=== PATIENT | male | born 1955 | race Caucasian/White ===

== ENCOUNTER 2023-10-07 15:07 | Outpatient (OUT) | payer OTHER, SELFPAY ==
--- NOTE | 2023-10-07 16:00 | CA_ITS ---
Patient Name: KATH CÁRDENAS MR#: [id number] : 1955 Exam Date: 10/07/2023 Ordering Doctor: CASTRO BOCANEGRA ECHOCARDIOGRAM REPORT PROCEDURE: CA ECHO DOPPLER COMPLETE INDICATIONS: Thoracic aortic ectasia, Aneurysm of ascending aorta COMPARISON: None. DESCRIPTION: COMPLETE ECHOCARDIOGRAM Real-time transthoracic echocardiography with 2D, M-mode, spectral and color flow Doppler performed. QUALITY: Technical quality was good. LEFT VENTRICLE: Normal chamber size. Mild concentric left ventricular hypertrophy. LV EF: Global left ventricular systolic function is normal. Calculated left ventricular ejection fraction is 63% DIASTOLIC: Normal diastolic function. ATRIAL SEPTUM: Inadequately seen. LEFT ATRIUM: Normal chamber size. RIGHT ATRIUM: Normal chamber size. RIGHT VENTRICLE: Normal chamber size. Normal right ventricular systolic function. TRICUSPID VALVE: Normal mobility and thickness. No stenosis with trivial regurgitation. No evidence of pulmonary hypertension. RVSP 33mmHg MITRAL VALVE: Normal mobility and thickness. No evidence of mitral valve stenosis. There is no mitral annular calcification. Mild mitral regurgitation. AORTIC VALVE: Normal trileaflet appearance. No visible sclerosis. Normal leaflet mobility. No evidence of aortic valve stenosis. Trivial aortic regurgitation. AORTIC ROOT: Normal diameter and appearance. The ascending aorta measures 3.6cm. The aortic arch is normal in size measuring 3.2cm. PULMONIC VALVE: Normal thickness and mobility. No stenosis. Trivial regurgitation. PERICARDIUM: No evidence of pericardial effusion. IVC: Collapses with inspirations. Normal size. CONCLUSION: 1. Global left ventricular systolic function is normal; visually estimated ejection fraction is 60 to 65% 2. Normal right ventricular size and systolic function 3. Left atrium is normal in size 4. Normal diastolic function 5. Mild mitral regurgitation 6. Ascending aorta is upper normal limits in size Adult Echocardiography Procedure Report Left Ventricle LVEDD (3.7 - 5.6 cm): 4.20 cm LVESD (2.2 - 4.0 cm): 2.92 cm LVIVS thickness (0.6 - 1.2 cm): 1.36 cm LVPW thickness (0.5 - 1.0 cm): 1.23 cm e': 0.12 m/s E - e': 5.35 LVOT Max Gradient: 3.39 mm[Hg] LVOT Area (cm2): 0.92 m/s Peak Velocity (LVOT): 0.92 m/s Mean Velocity (LVOT): 0.65 m/s LVOT Diameter 2.51 cm Left Ventricular Ejection Fraction: 63.13 % Left Atrium LA Volume Index (2D A2C): 32.97 ml/m2 Left Atrium Systolic Dimension: 3.64 cm Mitral Valve MV E to A Ratio: 0.97, 0.98 Mitral Valve A-Wave Peak Velocity: 0.68 m/s Mitral Valve E-Wave Peak Velocity: 0.66 m/s Right Ventricle RV Internal Diastolic Dimension: 3.62 cm Aorta AO Root Diam: 3.60 cm Ascending Ao Diam: 3.63 cm Aortic Valve AoV Area (Peak Bucky): 3.81 cm2, 3.81 cm2 AoV Area (VTI): 3.39 cm2, 3.39 cm2 Peak Velocity(Antegrade Flow): 1.19 m/s Peak Gradient(Antegrade Flow): 5.69 mm[Hg] Mean Velocity(Antegrade Flow): 0.86 m/s Mean Gradient(Antegrade Flow): 3.31 mm[Hg] Velocity Time Integral: 25.92 cm Tricuspid Valve Peak Velocity (Regurgitant Flow): 2.73 m/s, 2.33 m/s, 2.35 m/s Pulmonic Valve Mean Gradient: 2.47 mm[Hg] Mean Velocity: 0.73 m/s Peak Velocity: 1.12 m/s, 0.98 m/s Peak Gradient: 3.85 mm[Hg], 5.06 mm[Hg] Right Atrium Right Atrium Systolic Pressure: 54.69 ml, 54.69 ml Dictated by: Ella Villeda M.D. on 10/07/2023 at 16:26 Approved by: Ella Villeda M.D. on 10/07/2023 at 16:31
== END 2023-10-07 15:08 | disposition home or self-care (01) ==
LOC: CARD 15:08
PROVIDERS: Visit Provider Nurse Practitioner
DX: I77.810 Thoracic aortic ectasia (principal); I71.21 Aneurysm of the ascending aorta, without rupture
CPT/HCPCS: 93306

== ENCOUNTER 2024-06-04 09:06 | Outpatient (OUT) | payer OTHER, SELFPAY ==
--- OUTSIDE RECORDS SUMMARY | 2024-06-04 09:30 | XMS_ITS | CCD ---
Author Organization [facility] CliniSynh Care Team Providers Care Compensation Associate Name Role Phone GERONIMO ROBERT~[phone] UNKNOWN Unavailable Unavailable Rice, Jodee W Unavailable Unavailable Rice, Jodee W Unavailable Unavailable Rice, Jodee W Unavailable Unavailable UNKNOWN, PROVIDER Admitting Unavailable UNKNOWN, PROVIDER Attending Unavailable GERONIMO ROBERT Referring Unavailable YESICA, GERONIMO Primary Care Unavailable SAM, KARTHIK Admitting Unavailable SAMSA, KARTHIK Attending Unavailable YESICA, DR GERONIMO Lunsford Primary Care Unavailable SAMSA, KARTHIK Consulting Unavailable ESTER, DR WOLF Admitting Unavailable BALL, DR WOLF Attending Unavailable ROBERT, DR GERONIMO Lunsford Primary Care Unavailable BALL, DR WOLF Consulting Unavailable YESICA, DR GERONIMO Lunsford Admitting Unavailable ROBERT, DR GERONIMO Lunsford Attending Unavailable ROBERT, DR GERONIMO Lunsford Primary Care Unavailable ROBERT, DR GERONIMO Lunsford Consulting Unavailable Geronimo Robert MD Primary Care Provider GERONIMO ROBERT Primary Care Unavailable STEPHANIE WEST Consulting Unavailable ELOISE PETERS Attending Unavailable ELOISE PETERS Admitting Unavailable Esthela Mahajan MD Unavailable Esthela Mahajan MD Primary Care Provider Miguelina Villa Primary Care Pro vider MIGUELINA RICHARD Attending Unavailab MIGUELINA Joseph Attending Unavailab MIGUELINA Joseph Attending Unavailab MIGUELINA Joseph Attending Unavailab CURTIS Vizcaino Referring Unavailable CURTIS MARTINEZ Referring Unavailable CASTRO STONE Attending Unavailable RAYNA RUTLEDGE Attending Unavailable CURTIS MARTINEZ Referring Unavailable MADISYN GENAO Referring Unavailable MIGUELINA RICHARD Primary Care Unavailab MADISYN Rivas Attending Unavailable GERONIMO ROBERT Referring Unavailable RICHARD, MIGUELINA A Primary Care Unavailab le RICHARD, MIGUELINA A Primary Care Unavailab le BRETT WILSON Attending Unavailable BRETT WILSON Attending Unavailable BRETT WILSON Referring Unavailable RICHARD, MIGUELINA A Primary Care Unavailab le JESUS, MENNATALLAH M Admitting Unavailable JESUS, MENNATALLAH M Attending Unavailable JACE, MIGUELINA A Primary Care Unavailab YAMINI Gandhi Attending Unavail able RICHARD, MIGUELINA A Primary Care Unavailab le JESUS, MENNATALLAH M Attending Unavailable JESUS, MENNATALLAH M Referring Unavailable RICHARD, MIGUELINA A Primary Care Unavailab le JESUS, MENNATALLAH M Attending Unavailable JESUS, MENNATALLAH M Referring Unavailable RICHARD, MIGUELINA A Primary Care Unavailab le JESUS, MENNATALLAH M Attending Unavailable JESUS, MENNATALLAH M Referring Unavailable RICHARD, MIGUELINA A Primary Care Unavailab MADISYN Rivas Referring Unavailable RICHARD, MIGUELINA A Primary Care Unavailab MADISYN Rivas Attending Unavailable GERONIMO ROBERT Referring Unavailable RICHARD, MIGUELINA A Primary Care Unavailab le Allergies Allergy Classification Reported Allergen(s) Allergy Type Date of Onset Reaction(s) Facility (1 source) No Known Medication Allergies; Translations: [No Known Medication Allergies] Propensity to adverse reactions (disorder) [facility] Repository (4 sources) Acyclovir; Translations: [ACYCLOVIR] Drug Allergy 4 [facility] Repository (3 sources) Acyclovir Drug Allergy 9 [facility] Medications Current Medications Medication Drug Class(es) Dates Sig (Normalized) Sig (Original) acetaminophen 500 mg oral tablet (1 source) Start: 06-15-2022 acetaminophen (TYLENOL) tablet 1,000 mg amoxicillin 875 mg / clavulanate 125 mg oral tablet (2 sources) Penicillin-class Antibacterial Start: 06-15-2022 End: 06-25-2022 take 1 tablet by mouth every twelve hours amoxicillin-clavul anate (AUGMENTIN) 875-125 MG per tablet Take 1 tablet by mouth every 12 hours for 10 days 20 tablet 0 06/15/2022 06/25/2022 Active Start: 06-15-2022 amoxicillin-cl avulanate (AUGMENTIN) 875-125 MG per tablet 1 tablet apalutamide 60 mg oral tablet (4 sources) Start: 07-04-2023 take 4 tablets by mouth once daily apalutamide 60 mg chemo tablet Indications: Primary malignant neoplasm of prostate (CMS-HCC) Take 4 tablets by mouth daily 120 tablet 11 07/04/2023 Active Apalutamide (Erl eada) 60 MG tablet Take by mouth. 0 Active aspirin 81 mg delayed release oral tablet (1 source) Platelet Aggregation Inhibitor, Nonsteroidal Anti-inflammatory Drug take 1 tablet by mouth in the morning aspirin 81 MG EC tablet Take 81 mg by mouth in the morning. 0 Active bicalutamide 50 mg oral tablet (3 sources) Androgen Receptor Inhibitor Start: End: take 1 tablet by mouth once daily bicalutamide (CASODEX) 50 mg chemo tablet Take 1 tablet by mouth daily 90 tablet 3 10/17/2023 10/11/2024 Active bisacodyl 10 mg rectal suppository (1 source) Stimulant Laxative Start: bisacodyl (DULCOLAX) suppository 10 mg Blood Glucose Monitoring Suppl (FreeStyle glucose monitoring) kit (1 source) Blood Glucose Monitoring Suppl (FreeStyle glucose monitoring) kit 1 each in the morning and 1 each before bedtime. 0 Active Continuous Blood Gluc Top Closer (FreeStyle Rae 2 [place]) device (1 source) Continuous Blood Gluc Top Closer (FreeStyle Rae 2 [place]) device 2 (two) times a day 0 Active Continuous Blood Gluc Sensor (FreeStyle Rae 2 Sensor) misc (1 source) Continuous Blood Gluc Sensor (FreeStyle Rae 2 Sensor) misc 2 (two) times a day 0 Active dexamethasone 1 mg/ml / neomycin 3.5 mg/ml / polymyxin b 50331 unt/ml ophthalmic suspension (1 source) Aminoglycoside Antibacterial, Polymyxin-class Antibacterial, Corticosteroid Start: End: take 2 drop(s) into the eye(s) twice daily neomycin-polymyxin- dexamethasone (MAXITROL) 0.1 % ophthalmic suspension Place 2 drops into the left eye 2 times daily for 10 days 2 mL 0 06/15/2022 06/25/2022 Active famotidine 20 mg oral tablet (1 source) Histamine-2 Receptor Antagonist famotidine (Pepcid) 20 MG tablet Take 20 mg by mouth. 0 Active fluticasone propionate 0.05 mg/actuat metered dose nasal spray (1 source) Corticosteroid Start: End: take 1-2 spray(s) nasal route in the morning fluticasone (Flonase) 50 MCG/ACT nasal spray Indications: Seasonal allergic rhinitis due to other allergic trigger Administer 1-2 sprays into each nostril in the morning. Shake gently. Before first use, prime pump. After use, clean tip and replace cap.. 16 g 2 02/11/2023 02/11/2024 Active 250 ml glucose 50 mg/ml / sodium chloride 4.5 mg/ml injection (2 sources) Start: dextrose 5 % and 0.45 % sodium chloride infusion Start: 06-15-2022 End: 06-15-2022 dextrose 5 % and 0.45 % NaCl 5-0.45 % infusion 24 hr metFORMIN hydrochloride 500 mg extended release oral tablet (4 sources) Biguanide Start: 05-03-2023 take 2 tablets by mouth every twenty-four hours in the morning metFORMIN XR (Glucophage-XR) 500 MG 24 hr tablet Indications: Type 2 diabetes mellitus without complication, without long-term current use of insulin ([facility]) Take 2 tablets (1,000 mg) by mouth in the morning. Do not crush, chew, or split.. 180 tablet 0 05/03/2023 Active take 1 tablet by mouth in the mo rning metFORMIN (GLUCOPHAGE) 500 mg tablet Take 1 tablet by mouth in the morning and 1 tablet before bedtime. 0 Active Multiple Vitamin (multivitamin) tablet (1 source) take 1 tablet by mouth in the morning Multiple Vitamin (multivitamin) tablet Take 1 tablet by mouth in the morning. 0 Active ondansetron (ZOFRAN-ODT) disintegrating tablet 4 mg (1 source) Start: ondansetron (ZOFRAN-ODT) disintegrating tablet 4 mg oxyCODONE hydrochloride 5 mg oral tablet (3 sources) Opioid Agonist Start: 2 End: 2 take 0.5 tablet by mouth every six hours as needed for pain oxyCODONE (ROXICODONE) 5 MG immediate release tablet Indications: Dog bite of eye region, left, initial encounter Take 0.5 tablets by mouth every 6 hours as needed for Pain for up to 5 days. 6 tablet 0 06/15/2022 06/20/2022 Active Start: 06-15-2022 oxyCODONE (ESA ICODONE) immediate release tablet 2.5 mg polyethylene glycol 3350 81843 mg powder for oral solution (1 source) Osmotic Laxative Start: 06-15-2022 polyethylene glycol (GLYCOLAX) packet 17 g 5 ml sodium chloride 9 mg/ml injection (3 sources) Start: 06-15-2022 0.9 % sodium c hloride infusion Start: 06-15-2022 sodium chlorid e flush 0.9 % injection 5-40 mL vitamin b12 0.1 mg oral tablet (1 source) Vitamin B12 take 1 tablet by mouth in the morning cyanocobalamin (Vitamin B-12) 100 MCG tablet Take 100 mcg by mouth in the morning. 0 Active zinc gluconate 77 mg oral lozenge (1 source) Zinc 10 MG lozen ge Dissolve in the mouth. 0 Active Completed/Discontinued Medications Medication Drug Class(es) Dates Sig (Normalized) Sig (Original) atorvastatin 10 mg oral tablet (1 source) HMG-CoA Reductase Inhibitor Start: 07-02-2023 End: 09-10-2023 take 1 tablet by mouth in the morning atorvastatin (Lipitor) 10 MG tablet Indications: Mixed hyperlipidemia (CMS/HCC) TAKE 1 TABLET BY MOUTH IN THE MORNING 90 tablet 0 07/02/2023 09/10/2023 Discontinued (Ineffective) proparacaine hydrochloride 5 mg/ml ophthalmic solution (1 source) Local Anesthetic Start: 06-15-2022 End: 06-15-2022 proparacaine (ALCAINE) 0.5 % ophthalmic solution 1 drop Problems Active Problems Problem Classification Problem Date Documented Da te Episodic/Chronic Abdominal pain (1 source) Epigastric pain; Translations: [Epigastric pain] Onset: 02-04-2024 Episodic Acquired foot deformities (2 sources) Acquired left hallux valgus; Translations: [Hallux valgus (acquired), left foot] Onset: 02-11-2023 09-12-2023 Chronic Administrative/social admission (2 sources) Patient encounter status; Translations: [Other specified counseling] 09-12-2023 Episodic Aortic; peripheral; and visceral artery aneurysms (2 sources) Thoracic aortic ectasia; Translations: [Thoracic aortic ectasia] Onset: 09-25-2023 Chronic Biliary tract disease (1 source) Disease of gallbladder, unspecified; Translations: [Disease of gallbladder, unspecified] Onset: 02-04-2024 Episodic Cancer of prostate (12 sources) Malignant tumor of prostate; Translations: [Malignant neoplasm of prostate] Onset: 07-06-2014 09-12-2023 Chronic Cardiac dysrhythmias (8 sources) Paroxysmal atrial fibrillation; Translations: [Sick sinus syndrome] Onset: 09-27-2021 09-12-2023 Chronic Cardiac dysrhythmias (2 sources) Palpitations; Translations: [Palpitations] Onset: 07-06-2014 09-12-2023 Episodic Conduction disorders (5 sources) Conduction disorder of the heart; Translations: [Conduction disorder, unspecified] Onset: 06-30-2014 Resolved: 09-12-2023 09-12-2023 Chronic Diabetes mellitus with complications (1 source) Type 2 diabetes mellitus; Translations: [Type 2 diabetes mellitus with diabetic polyneuropathy] 09-12-2023 Chronic Diabetes mellitus without complication (2 sources) Type 2 diabetes mellitus without complication; Translations: [Type 2 diabetes mellitus without complications] Onset: 02-11-2023 09-03-2023 Chronic Disorders of lipid metabolism (4 sources) Mixed hyperlipidemia; Translations: [Mixed hyperlipidemia] Onset: 02-11-2023 09-03-2023 Chronic E Codes: Natural/environment (2 sources) Dog bite - wound; Translations: [Bitten by dog, initial encounter] Onset: 06-15-2022 Episodic Gastroduodenal ulcer (except hemorrhage) (1 source) Peptic ulcer, site unspecified, unspecified as acute or chronic, without hemorrhage or perforation; Translations: [Peptic ulcer, site unspecified, unspecified as acute or chronic, without hemorrhage or perforation] Onset: 02-04-2024 Chronic Heart valve disorders (5 sources) Aortic valve disorder; Translations: [Nonrheumatic aortic valve disorder, unspecified] Onset: 07-14-2014 Resolved: 09-12-2023 09-12-2023 Chronic Immunity disorders (1 source) Secondary immune deficiency disorder; Translations: [Immunodeficiency due to conditions classified elsewhere ([facility])] 09-12-2023 Chronic Nonspecific chest pain (2 sources) Chest pain Onset: 02-04-2024 Episodic Open wounds of head; neck; and trunk (4 sources) Dog bite of eye region; Translations: [Open bite of left eyelid and periocular area, initial encounter] Onset: 06-15-2022 Episodic Osteoarthritis (2 sources) Arthritis; Translations: [Unspecified osteoarthritis, unspecified site] Onset: 02-11-2023 09-12-2023 Chronic Other injuries and conditions due to external causes (2 sources) Bite - wound; Translations: [Other injury of unspecified body region, initial encounter] Onset: 06-15-2022 Episodic Other nervous system disorders (2 sources) Neuropathy; Translations: [Polyneuropathy, unspecified] Onset: 02-11-2023 09-12-2023 Chronic Residual codes; unclassified (4 sources) Obstructive sleep apnea (adult) (pediatric); Translations: [OBSTRUCTIVE SLEEP APNEA] Onset: 05-23-2022 Chronic Residual codes; unclassified (1 source) Idiopathic hypersomnia with long sleep time; Translations: [IDIO HYPERSOMNIA W/LONG SLEEP TIME] Onset: 05-27-2022 Chronic Residual codes; unclassified (1 source) Colon cancer screening declined; Translations: [Procedure and treatment not carried out because of patient's decision for unspecified reasons] 09-12-2023 Episodic Spondylosis; intervertebral disc disorders; other back problems (2 sources) Cervical spondylosis without myelopathy; Translations: [Spondylosis without myelopathy or radiculopathy, cervical region] Onset: 03-30-2014 09-12-2023 Chronic Unclassified (1 source) Aneurysm of the ascending aorta, without rupture; Translations: [Aneurysm of the ascending aorta, without rupture] Onset: 09-25-2023 Viral infection (4 sources) COVID-19; Translations: [COVID-19] Onset: 08-07-2021 Past or Other Problems Problem Classification Problem Date Documented Date Episodic/Chronic Conditions associated with dizziness or vertigo (1 source) Dizziness; Translations: [Dizziness and giddiness] Onset: 03-30-2014 Resolved: 09-12-2023 09-12-2023 Episodic Genitourinary symptoms and ill-defined conditions (8 sources) Magdiel hematuria; Translations: [Gross hematuria] Onset: 06-03-2019 Resolved: 09-12-2023 09-12-2023 Episodic Immunizations and screening for infectious disease (1 source) Encounter for immunization; Translations: [ENCOUNTER FOR IMMUNIZATION] Onset: 08-10-2021 Episodic Mood disorders (4 sources) Mood disorders Onset: 10-12-2021 Resolved: 09-03-2023 09-03-2023 Other nervous system disorders (1 source) Impairment of balance; Translations: [Other abnormalities of gait and mobility] Onset: 02-11-2023 Resolved: 09-12-2023 09-12-2023 Episodic Other nervous system disorders (1 source) Skin sensation disturbance; Translations: [Unspecified disturbances of skin sensation] Onset: 06-30-2014 Resolved: 09-12-2023 09-12-2023 Episodic Other nutritional; endocrine; and metabolic disorders (1 source) Abnormal weight loss; Translations: [ABNORMAL WEIGHT LOSS] Onset: 09-27-2021 Episodic Other nutritional; endocrine; and metabolic disorders (1 source) Polydipsia; Translations: [POLYDIPSIA] Onset: 09-27-2021 Episodic Unclassified (1 source) Aneurysm of the ascending aorta, without rupture; Translations: [Aneurysm of the ascending aorta, without rupture] Onset: 09-25-2023 Results Test Name Value Interpretation Reference Range Facility CBC AND AUTO DIFFon 04-15-20 24 ABSOLUTE BASOPHIL 0.1 X10E9/L Normal 0.0-0.2 [facility] Comment on above: Performed By: #### C SIXTO AGUERO, 2857-1 #### [facility] ([id number]) [address], [address] [place] [address] ABSOLUTE NEUTROPHIL 3.3 X10E9/L Normal 1.5-6.6 [facility] Comment on above: Performed By: #### C SIXTO AGUERO, 2857-1 #### [facility] ([id number]) [address], [address] [place] [address] Basophils/100 WBC (Bld) 1.0 % Normal [facility] Comment on above: Performed By: #### C MORE CMP, 7-1 #### [facility] ([id number]) [address] [address] [place] [address] Eosinophils (Bld) [#/Vol] 0.1 10*3/uL Normal 0.0-0.4 [facility] Comment on above: Performed By: #### Omar AGUERO CMP, 7-1 #### [facility] ([id number]) [address] [address] [place] [address] Eosinophils/100 WBC (Bld) 1.1 % Normal [facility] Comment on above: Performed By: #### Omar AGUERO CMP, 2856-1 #### [facility] ([id number]) [address] [address] [place] [address] Erythrocyte distribution width (RBC) [Ratio] 13.8 % Normal 11.5-15.0 [facility] Comment on above: Performed By: #### Omar AGUERO CMP, 2856-1 #### [facility] ([id number]) [address] [address] [place] [address] Hematocrit (Bld) [Volume fraction] 41.7 % Normal 39-49 [facility] Comment on above: Performed By: #### Omar AGUERO CMP, 2856-1 #### [facility] ([id number]) [address] [address] [place] [address] Hemoglobin (Bld) [Mass/Vol] 14.1 g/dL Normal 13.0-17.0 [facility] Comment on above: Performed By: #### Omar AGUERO CMP, 7-1 #### [facility] ([id number]) [address] [address] [place] [address] Lymphocytes (Bld) [#/Vol] 1.6 10*3/uL Normal 1.0-3.5 [facility] Comment on above: Performed By: #### C BCA, CMP, 2856-1 #### [facility] ([id number]) [address], [address] [place] [address] Lymphocytes/100 WBC (Bld) 27.8 % Normal [facility] Comment on above: Performed By: #### C BCA, CMP, 2856-1 #### [facility] ([id number]) [address], [facility] [address] [place] [address] MCH (RBC) [Entitic mass] 29.9 pg Normal 27-34 [facility] Comment on above: Performed By: #### Omar AGUERO, CMP, 2856-1 #### [facility] ([id number]) [address], [address] [place] [address] MCHC (RBC) [Mass/Vol] 33.9 g/dL Normal 32-36 [facility] Comment on above: Performed By: #### Omar BCA, CMP, 2856-1 #### [facility] ([id number]) [address], [address] [place] [address] MCV (RBC) [Entitic vol] 88 fL Normal 80-100 [facility] Comment on above: Performed By: #### Omar BCA, CMP, 2856-1 #### [facility] ([id number]) [address], [address] [place] [address] Monocytes (Bld) [#/Vol] 0.7 10*3/uL Normal 0-0.9 [facility] Comment on above: Performed By: #### C BCA, CMP, 2856-1 #### [facility] ([id number]) [address], [address] [place] [address] Monocytes/100 WBC (Bld) 12.2 % Normal [facility] Comment on above: Performed By: #### Omar BCA, CMP, 2856-1 #### [facility] ([id number]) [address] [address] [place] [address] Neutrophils/100 WBC (Bld) 57.9 % Normal [facility] Comment on above: Performed By: #### C BCA, CMP, 2857-1 #### [facility] ([id number]) [address] [address] [place] [address] Platelet mean volume (Bld) [Entitic vol] 8.4 fL Normal 7-12 [facility] Comment on above: Performed By: #### C BCA, CMP, 2857-1 #### [facility] ([id number]) [address] [address] [place] [address] Platelets (Bld) [#/Vol] 259 10*3/uL Normal 150-450 [facility] Comment on above: Performed By: #### C BCA, CMP, 2857-1 #### [facility] ([id number]) [address], [facility] [address] [place] [address] RBC COUNT 4.72 X10E12/L Normal 4.10-5.70 [facility] Comment on above: Performed By: #### C BCA, CMP, 2857-1 #### [facility] ([id number]) [address] [address] [place] [address] WBC (Bld) [#/Vol] 5.7 10*3/uL Normal 4.0-11.0 [facility] Comment on above: Performed By: #### C BCA, CMP, 2857-1 #### [facility] ([id number]) [address] [address] [place] [address] COMPREHENSIVE METABOLIC PANE Luis 04-15-2024 Albumin [Mass/Vol] 4.7 g/dL Normal 3.2-5.3 [facility] Comment on above: Performed By: #### C BCA, CMP, 2857-1 #### [facility] ([id number]) [address], [address] [place] [address] ALP [Catalytic activity/Vol] 52 U/L Normal 39-130 [facility] Comment on above: Performed By: #### C BCA, CMP, 2857-1 #### [facility] ([id number]) [address], [address] [place] [address] ALT [Catalytic activity/Vol] 16 U/L Normal 0-40 [facility] Comment on above: Performed By: #### C BCA, CMP, 2857-1 #### [facility] ([id number]) [address], [address] [place] [address] Anion gap [Moles/Vol] 9 mmol/L Normal 5-15 [facility] Comment on above: Performed By: #### Omar BCA, CMP, 2857-1 #### [facility] ([id number]) [address], [address] [place] [address] AST [Catalytic activity/Vol] 19 U/L Normal 0-41 [facility] Comment on above: Performed By: #### Omar BCA, CMP, 2857-1 #### [facility] ([id number]) [address], [address] [place] [address] Bilirubin [Mass/Vol] 0.4 mg/dL Normal 0.3-1.2 [facility] Comment on above: Performed By: #### C BCA, CMP, 2857-1 #### [facility] ([id number]) [address], [address] [place] [address] Calcium [Mass/Vol] 9.5 mg/dL Normal 8.5-10.5 [facility] Comment on above: Performed By: #### C BCA, CMP, 2857-1 #### [facility] ([id number]) [address], [address] [place] [address] Chloride [Moles/Vol] 102 mmol/L Normal 98-109 [facility] Comment on above: Performed By: #### C SIXTO AGUERO, 2857-1 #### [facility] ([id number]) [address] [address] [place] [address] CO2 [Moles/Vol] 28 mmol/L Normal 22-32 [facility] Comment on above: Performed By: #### C MORE CMP, 7-1 #### [facility] ([id number]) [address], [address] [place] [address] Creatinine [Mass/Vol] 0.92 mg/dL Normal 0.60-1.30 [facility] Comment on above: Result Comment: METH OD TRACEABLE TO IDMS STANDARD Performed By: #### C SIXTO AGUERO, 7-1 #### [facility] ([id number]) [address], [facility] [address] [place] [address] GFR/1.73 sq M.predicted among non-blacks MDRD (S/P/Bld) [Vol rate/Area] 89 mL/min/{1.73_m2} Normal >59 [facility] Comment on above: Result Comment: Reported eGFR is based on the CKD-EPI 2020 equation that does not use a race coefficient. Performed By: #### C MORE CMP, 7-1 #### [facility] ([id number]) [address] [address] [place] [address] Glucose [Mass/Vol] 97 mg/dL Normal 65-99 [facility] Comment on above: Performed By: #### C MORE CMP, 7-1 #### [facility] ([id number]) [address] [address] [place] [address] Potassium [Moles/Vol] 4.2 mmol/L Normal 3.5-5.0 [facility] Comment on above: Performed By: #### C BCA, CMP, 7-1 #### [facility] ([id number]) [address], [address] [place] [address] Protein [Mass/Vol] 8.1 g/dL High 6.0-8.0 [facility] Comment on above: Performed By: #### Omar AGUERO CMP, 2857-1 #### [facility] ([id number]) [address] [address] Sodium [Moles/Vol] 139 mmol/L Normal 134-146 [facility] Comment on above: Performed By: #### Omar AGUERO CMP, 7-1 #### [facility] ([id number]) [address] [address] Urea nitrogen [Mass/Vol] 18 mg/dL Normal 5-27 [facility] Comment on above: Performed By: #### Omar AGUERO CMP, 2857-1 #### [facility] ([id number]) [address] [id number] Prostate specific Ag [Mass/V ol]on 04-15-2024 PROSTATIC SPEC ANT <0.01 Normal 0.00-4.00 [facility] Comment on above: Result Comment: The method used for this test is Alexus Kimberly DXI chemiluminescent immunoassay. Values obtained by different assay methods cannot be used interchangeably. Performed By: #### Omar AGUERO CMP, 2857-1 #### [facility] ([id number]) [address] [address] Testosterone [Mass/Vol]on TESTOSTERONE 1.56 ng/mL Low 1.68-7.46 [facility] Comment on above: Performed By: #### Omar AGUERO CMP, 5607-1 #### [facility] ([id number]) [address] [address] MR MRCP WITH MRI ABD W WO CO NTon 03-07-2024 MR MRCP WITH MRI ABD W WO CONT MR MRCP WITH MRI ABD W WO CONT CLINICAL INFORMATION: Abdominal pain Epigastric pain. TECHNIQUE/PROCEDURE: Multiplanar, multisequence MR imaging of the abdomen was performed with and without IV contrast, including MIP and 3D reformats performed on an independent workstation under concurrent physician supervision, which were then reviewed to further define anatomy and possible pathology. PROTOCOL: MRCP without and with intravenous contrast COMPARISON: None. FINDINGS: No pleural or pericardial effusion bases. No abdominal ascites is seen. The gallbladder is present with multiple gallstones. There is no biliary dilatation. No renal collecting system dilatation. No signal loss within the liver on opposed phase imaging to suggest iron deposition or hepatic steatosis. The adrenal glands pancreas and spleen appear to be unremarkable. There is no diffusion-weighted abnormality. The aorta is normal in caliber. Moderate large amount of stool throughout the colon suggestive of constipation. IMPRESSION: * Cholelithiasis. No evidence for acute processes or biliary dilatation. Finalized by Giovany Burns MD on 03/07/2024 10:21 AM Normal [facility] 37on 03-06-2024 37 Increase lipitor to 20 mg twice a day- prefers to not take 40 mg once daily Have labs drawn in 2-3 months to check liver function and cholesterol levels Call office for any concerns or side effects Normal [facility] Office Visiton 03-06-2024 Follow-up visit [id number] Kath Molina 1955 M Date Provider Department Center 03/06/2024 Darian-RAYNA RUTLEDGE CARD [facility] No family history on file Level of Service:30317 [place] OFFICE/OUTPATIENT ESTABLISHED LOW MDM 20 MIN Normal [facility] US ABDOMEN LMTDon 03-05-2024 US ABDOMEN LMTD US ABDOMEN LMTD HISTORY: A 68-year-old male with the history of the epigastric pain with nausea and vomiting. TECHNIQUE: Multiple real-time images of the right upper abdomen are obtained. Color Doppler study is performed. COMPARISON: Comparison is made with the CT scan of the abdomen and pelvis of 02/04/2024. FINDINGS: Examination is compromised due to overlying bowel gas shadows. The liver is normal in size and configuration. There is a heterogeneous echogenicity in liver suggestive of fatty infiltration. No focal mass is identified. The gallbladder is normal in size and configuration. The gallbladder wall thickness measures 3.8 mm. There are echogenic foci in the gallbladder consistent with cholelithiasis. There is no evidence of pericholecystic fluid collection. The common bile duct is normal and measures 4.4 mm in diameter. No intrahepatic biliary ductal dilatation is identified. There is a negative sonographic Chaudhari's sign. The visualized pancreas appears normal. There is no evidence of free fluid in the upper abdomen. IMPRESSION: 1. Cholelithiasis. No evidence of the biliary ductal dilatation. There is a negative sonographic Chaudhari's sign. 2. Fatty infiltration of the liver without evidence of focal mass. 3. The visualized pancreas appears unremarkable. Finalized by Thad Jimenez MD on 03/05/2024 10:03 PM Normal [facility] Surgical Pathologyon 024 Surgical Pathology Normal [facility] Comment on above: Result Comment: [facility] [address] [place] [address] Surgical Pathology Consultation Patient Name:KATH MOLINA:1955 (Age: 68)Gender:MTaken:02/26/2024eported:02/28/2024hysician(s):Dhaval Encarnacion MD ([phone])Copy To: Rec. #:[id number]: #[id number] Final Pathologic Diagnosis 1. Gastric antrum biopsy: Active chronic H. pylori associated gastritis. No dysplasia or intestinal metaplasia identified. Positive for Helicobacter pylori organisms on H&E stain. 2. GE junction biopsy: Squamocolumnar junctional mucosa showing chronic inflammation with reactive changes. No dysplasia or goblet cell metaplasia identified. Report Electronically Signed Out 02/28/2024freddy Bragg MD [place] [address], License number: [id number]. Clinical History Epigastric pain. Gross Description 1. Received in formalin labeled, AVI antrum biopsy is a pale-judd delicate soft tissue fragment, 0.3 cm in greatest dimension. The specimen is filtered and submitted in a single cassette. (1, ns, [id number], m8) TB 2. Received in formalin labeled, MOLINA, GE junction biopsy is a pale-judd delicate to friable soft tissue fragment, 0.6 cm in greatest dimension. The specimen is filtered and submitted in a single cassette. (1, velma, [id number], m8) TB tgb/02/27/2024EAK Specimen(s) Received 1: Antrum biopsy 2: GE junction biopsy Fee Codes(s): 1; 68793 2; 17257 CBC AND AUTO DIFFon 02-04-20 24 ABSOLUTE BASOPHIL 0.0 X10E9/L Normal 0.0-0.2 [facility] Comment on above: Performed By: #### C MORE CMP, 3040-3, 66509-7, 75322-6 #### [facility] ([id number]) [address] [place] [address] ABSOLUTE NEUTROPHIL 5.9 X10E9/L Normal 1.5-6.6 [facility] Comment on above: Performed By: #### Omar AGUERO CMP, 3040-3, 29794-4, 56627-0 #### [facility] ([id number]) [address] [place] [address] Basophils/100 WBC (Bld) 0.4 % Normal [facility] Comment on above: Performed By: #### Omar BCA, CMP, 3040-3, 86861-7, 02693-4 #### [facility] ([id number]) [address] [place] [address] Eosinophils (Bld) [#/Vol] 0.1 10*3/uL Normal 0.0-0.4 [facility] Comment on above: Performed By: #### Omar BCA, CMP, 3040-3, 15785-4, 18668-2 #### [facility] ([id number]) [address] [place] [address] Eosinophils/100 WBC (Bld) 0.7 % Normal [facility] Comment on above: Performed By: #### C BCA, CMP, 3040-3, , 85033-0 #### [facility] ([id number]) [address] [place] [address] Erythrocyte distribution width (RBC) [Ratio] 13.6 % Normal 11.5-15.0 [facility] Comment on above: Performed By: #### C BCA, CMP, 3040-3, , 10194-9 #### [facility] ([id number]) [address] [place] [address] Hematocrit (Bld) [Volume fraction] 41.0 % Normal 39-49 [facility] Comment on above: Performed By: #### C BCA, CMP, 3040-3, , 63897-8 #### [facility] ([id number]) [address] [place] [address] Hemoglobin (Bld) [Mass/Vol] 14.0 g/dL Normal 13.0-17.0 [facility] Comment on above: Performed By: #### C BCA, CMP, 0-3, , 09821-9 #### [facility] ([id number]) [address] [place] [address] Lymphocytes (Bld) [#/Vol] 1.0 10*3/uL Normal 1.0-3.5 [facility] Comment on above: Performed By: #### Omar BCA, CMP, 3040-3, , 64532-3 #### [facility] ([id number]) [address] [place] [address] Lymphocytes/100 WBC (Bld) 12.8 % Normal [facility] Comment on above: Performed By: #### Omar BCA, CMP, 3040-3, , 86533-6 #### [facility] ([id number]) [address] [place] [address] MCH (RBC) [Entitic mass] 29.6 pg Normal 27-34 [facility] Comment on above: Performed By: #### C MORE, CMP, 3040-3, , 36031-1 #### [facility] ([id number]) [address] [place] [address] MCHC (RBC) [Mass/Vol] 34.1 g/dL Normal 32-36 [facility] Comment on above: Performed By: #### C MORE, CMP, 0-3, , 00277-7 #### [facility] ([id number]) [address] [place] [address] MCV (RBC) [Entitic vol] 87 fL Normal 80-100 [facility] Comment on above: Performed By: #### Omar AGUERO, CMP, 3, , 52738-1 #### [facility] ([id number]) [address] [place] [address] Monocytes (Bld) [#/Vol] 0.7 10*3/uL Normal 0-0.9 [facility] Comment on above: Performed By: #### Omar AGUERO, CMP, 3, , 50154-0 #### [facility] ([id number]) [address] [place] [address] Monocytes/100 WBC (Bld) 9.2 % Normal [facility] Comment on above: Performed By: #### Omar BCA, CMP, 0-3, , 84672-3 #### [facility] ([id number]) [address] [place] [address] Neutrophils/100 WBC (Bld) 76.9 % Normal [facility] Comment on above: Performed By: #### C MORE, CMP, 0-3, 95925-7, 27260-2 #### [facility] ([id number]) [address] [place] [address] Platelet mean volume (Bld) [Entitic vol] 8.0 fL Normal 7-12 [facility] Comment on above: Performed By: #### C BCA, CMP, 3040-3, , 97704-1 #### [facility] ([id number]) [address] [place] [address] Platelets (Bld) [#/Vol] 260 10*3/uL Normal 150-450 [facility] Comment on above: Performed By: #### C BCA, CMP, 3040-3, , 01057-5 #### [facility] ([id number]) [address] [place] [address] RBC COUNT 4.72 X10E12/L Normal 4.10-5.70 [facility] Comment on above: Performed By: #### C BCA, CMP, 3040-3, , 05956-5 #### [facility] ([id number]) [address] [place] [address] WBC (Bld) [#/Vol] 7.6 10*3/uL Normal 4.0-11.0 [facility] Comment on above: Performed By: #### C BCA, CMP, 3040-3, , 57027-7 #### [facility] ([id number]) [address] [place] [address] COMPREHENSIVE METABOLIC PANE Luis 02-04-2024 Albumin [Mass/Vol] 4.5 g/dL Normal 3.2-5.3 [facility] Comment on above: Performed By: #### C BCA, CMP, 3040-3, , 32023-8 #### [facility] ([id number]) [address] [place] [address] ALP [Catalytic activity/Vol] 50 U/L Normal 39-130 [facility] Comment on above: Performed By: #### C BCA, CMP, 3040-3, 85116-3, 00247-4 #### [facility] ([id number]) [address] [place] [address]39 ALT [Catalytic activity/Vol] 20 U/L Normal 0-40 [facility] Comment on above: Performed By: #### C BCA, CMP, 3040-3, 65422-4, 92615-2 #### [facility] ([id number]) [address] [place] [address] 23567 Anion gap [Moles/Vol] 7 mmol/L Normal 5-15 [facility] Comment on above: Performed By: #### C BCA, CMP, 3040-3, 79054-5, 27840-9 #### [facility] ([id number]) [address] [place] [address]777 AST [Catalytic activity/Vol] 23 U/L Normal 0-41 [facility] Comment on above: Performed By: #### C BCA, CMP, 3040-3, 88312-2, 54826-6 #### [facility] ([id number]) [address] [place] [address]75 Bilirubin [Mass/Vol] 0.3 mg/dL Normal 0.3-1.2 [facility] Comment on above: Performed By: #### C BCA, CMP, 3040-3, 25259-4, 22141-7 #### [facility] ([id number]) [address] [place] [address]23 Calcium [Mass/Vol] 10.4 mg/dL Normal 8.5-10.5 [facility] Comment on above: Performed By: #### C BCA, CMP, 3040-3, , 35258-1 #### [facility] ([id number]) [address] [place] [address] 14955 Chloride [Moles/Vol] 99 mmol/L Normal 98-109 [facility] Comment on above: Performed By: #### C MORE, CMP, 3, , 76948-2 #### [facility] ([id number]) [address] [place] [address] 17248 CO2 [Moles/Vol] 27 mmol/L Normal 22-32 [facility] Comment on above: Performed By: #### C MORE, CMP, 3039-10, , 35054-6 #### [facility] ([id number]) [address] [place] [address] 86345 Creatinine [Mass/Vol] 0.94 mg/dL Normal 0.70-1.20 [facility] Comment on above: Result Comment: METH OD TRACEABLE TO IDMS STANDARD Performed By: #### C MORE, SIXTO, 3, , 81625-7 #### [facility] ([id number]) [address] [place] [address] 68886 GFR/1.73 sq M.predicted among non-blacks MDRD (S/P/Bld) [Vol rate/Area] 87 mL/min/{1.73_m2} Normal >59 [facility] Comment on above: Result Comment: Reported eGFR is based on the CKD-EPI 2020 equation that does not use a race coefficient. Performed By: #### C MORE, CMP, 3039-3, , 48068-2 #### [facility] ([id number]) [address] [place] [address] 71621 Glucose [Mass/Vol] 117 mg/dL High 65-99 [facility] Comment on above: Performed By: #### C MORE, CMP, 3040-3, 74890-6, 46855-4 #### [facility] ([id number]) [address] [place] [address] 71737 Potassium [Moles/Vol] 4.0 mmol/L Normal 3.5-5.0 [facility] Comment on above: Performed By: #### C BCA, CMP, 3040-3, 74921-1, 37960-6 #### [facility] ([id number]) [address] [place] [address] 09733 Protein [Mass/Vol] 8.2 g/dL High 6.0-8.0 [facility] Comment on above: Performed By: #### C BCA, CMP, 3040-3, 44163-2, 95472-6 #### [facility] ([id number]) [address] [place] [address] 42094 Sodium [Moles/Vol] 133 mmol/L Low 134-146 [facility] Comment on above: Performed By: #### C BCA, CMP, 3040-3, 29880-2, 85763-5 #### [facility] ([id number]) [address] [place] [address] 12219 Urea nitrogen [Mass/Vol] 19 mg/dL Normal 5-27 [facility] Comment on above: Performed By: #### C BCA, CMP, 3040-3, 32171-8, 95556-9 #### [facility] ([id number]) [address] [place] [address] ABDOMEN AND PELVIS W CONT on 02-04-2024 CT ABDOMEN AND PELVIS W CONT CT ABDOMEN AND PELVIS W CONT CLINICAL INFORMATION: Epigastric pain; cp, epigastric pain. COMPARISON: 05/12/2019 TECHNIQUE: CT of the abdomen and pelvis with intravenous contrast. FINDINGS: LOWER CHEST: Interpreted separately. LIVER AND BILIARY: No suspicious focal liver lesion. Gallbladder is present, moderately distended. Equivocal inflammation along the naresh hepatis, extrahepatic biliary tree. No significant biliary dilatation however. PANCREAS: No acute abnormality. SPLEEN: Within normal limits. ADRENALS: Within normal limits. KIDNEYS, URETERS, AND BLADDER: Nonobstructing right nephrolithiasis. Symmetric renal enhancement without hydronephrosis. Normal bladder contour. GI TRACT AND PERITONEUM: No bowel obstruction. Normal appendix. Sigmoid diverticulosis without diverticulitis. No free fluid or free air. Potential nonperforated ulcer (versus peristalsis) at the gastric antrum. VASCULATURE: Normal caliber aorta. Grossly patent portal vein and SMA for technique. LYMPH NODES: Within normal limits. Pelvic sidewall postsurgical changes. REPRODUCTIVE ORGANS: Nonvisualized prostate. MUSCULOSKELETAL: Degenerative changes of the hips and spine. No acute osseous abnormality identified IMPRESSION: 1. Potential nonperforated distal gastric ulcer, particularly given history of epigastric pain. No fluid collection or pneumoperitoneum. Consider EGD correlation. 2. Additionally, gallbladder is distended gallbladder with mild inflammation along the CBD. Correlate with LFTs, potentially ultrasound All CT scans at this facility use dose modulation, iterative reconstruction, and/or weight based dosing when appropriate to reduce radiation dose to as low as reasonably achievable. Finalized by Giovany Portillo MD on 02/04/2024 5:12 PM Normal [facility] CT CTA CHESTon 02-04-[address] CTA CHEST CTA CHEST HISTORY: Chest pain, upper abdominal pain. COMPARISON: None. TECHNIQUE: Multidetector CT Angiogram performed with 100 mL of Omnipaque 350 IV contrast. Images obtained through the Chest including 3 -D Maximum intensity projection reconstructions constructed under concurrent physician supervision on a independent workstation. 3 D images obtained to improve visualization of vascular detail. Automatic exposure control (AEC) was utilized. 3D reformatted images confirm the source data findings. All CT scans at this facility use dose modulation, iterative reconstruction, and/or weight based dosing when appropriate to reduce radiation dose to as low as reasonably achievable. FINDINGS: Lower neck: Visible thyroid unremarkable Lymph nodes: No supraclavicular, axillary, mediastinal adenopathy. Chest wall/Osseous structures: Vertebral body heights and alignment maintained. Diffuse idiopathic skeletal hyperostosis. Gynecomastia. Upper abdomen: Abdomen dictated separately. No acute findings in the visualized upper abdomen. Heart and Aorta: Heart is not enlarged. No pericardial effusion. No significant coronary artery calcifications. Thoracic aorta is nonaneurysmal. No dissection. Left chest wall cardiac pacemaking device. Lung: Central airways are widely patent. No pneumothorax or pleural effusion. Dependent bibasilar atelectasis. Solid 5 mm right middle lobe nodule (series 2 image 68).. A 5 mm left lower lobe nodule (64/121) Pulmonary artery: No filling defect within the main pulmonary trunk, lobar, or proximal segmental branches to suggest pulmonary embolism. Limited by motion, bolus timing IMPRESSION: * No visualized pulmonary embolism, noting above limitations. * Scattered sub-6 mm pulmonary nodules. Attention on follow-up as determined based on history of malignancy. Approved by Resident Chalino Marte DO on 02/04/2024 5:27 PM I, Giovany Portillo MD have personally reviewed the image(s) and agree with and/or edited the report Finalized by Giovany Portillo MD on 02/04/2024 5:40 PM Normal [facility] LIPASEon 02-04-2024 Lipase [Catalytic activity/Vol] 43 U/L High 17-40 [facility] Comment on above: Performed By: #### C MORE CMP, 3040-3, 71404-2, 60930-2 #### [facility] ([id number]) [address] [place] [address] 12906 MAGNESIUMon 02-04-2024 Magnesium [Mass/Vol] 2.4 mg/dL Normal 1.8-2.6 [facility] Comment on above: Performed By: #### C BCA, CMP, 3040-3, 17453-7, 92266-2 #### [facility] ([id number]) [address] [place] [address] 06024 Troponin I.cardiac High sens itivity method [Mass/Vol]on 02-04-2024 1 HOUR TROP I, HIGH SENSITIVITY 2 ng/L Normal <21 [facility] Comment on above: Performed By: #### 8 9579-7 #### [facility] ([id number]) [address] [place] [address] TROPONIN I, HIGH SENSITIVITY 2 ng/L Normal <21 [facility] Comment on above: Performed By: #### C BCA, CMP, 3040-3, 74173-1, 70432-8 #### [facility] ([id number]) [address] [place] [address]7311 URN MACROSCOPIC NURon 2023 BILIRUBIN KENROY Negative Normal NEG [facility] Comment on above: Performed By: #### N UM #### [facility] ([id number]) [address] [place] [address] [place] [address] BLOOD/HGB KENROY Negative Normal NEG [facility] Comment on above: Performed By: #### N UM #### [facility] ([id number]) [address] [place] [address] [place] [address] GLUCOSE KENROY >=1000 Abnormal NEG [facility] Comment on above: Performed By: #### N UM #### [facility] ([id number]) [address] [place] [address] [place] [address] KETONES KENROY Negative Normal NEG [facility] Comment on above: Performed By: #### N UM #### [facility] ([id number]) [address] [place] [address] [place] [address] LEUKOCYTE ESTERASE KENROY Negative Normal NEG [facility] Comment on above: Performed By: #### N UM #### [facility] ([id number]) [address] [place] [address] [place] [address] NITRITE KENROY Negative Normal NEG [facility] Comment on above: Performed By: #### N UM #### [facility] ([id number]) [address] [place] [address] PH KENROY 7.0 Normal 5.0-8.5 [facility] Comment on above: Performed By: #### N UM #### [facility] ([id number]) [address] [place] [address] PROTEIN KENROY Negative Normal NEG [facility] Comment on above: Performed By: #### N UM #### [facility] ([id number]) [address] [place] [address] 10411 SPECIFIC GRAVITY KENROY 1.025 Normal 1.003-1.035 [facility] Comment on above: Performed By: #### N UM #### [facility] ([id number]) [address] [place] [address] 11410 UROBILINOGEN KENROY 0.2 eu/dL Normal <1.1 [facility] Comment on above: Performed By: #### N UM #### [facility] ([id number]) [address] [place] [address] 88971 CBC AND AUTO DIFFon 10-10-19 24 ABSOLUTE BASOPHIL 0.1 X10E9/L Normal 0.0-0.2 [facility] Comment on above: Performed By: #### C MORE CMP, 2857-1 #### [facility] ([id number]) [address] [place] [address] [address] [place] [address] ABSOLUTE NEUTROPHIL 5.9 X10E9/L Normal 1.5-6.6 [facility] Comment on above: Performed By: #### C MORE, CMP, 7457-1 #### [facility] ([id number]) [address] [place] [address], [address] [place] [address] Basophils/100 WBC (Bld) 0.7 % Normal [facility] Comment on above: Performed By: #### C BCA, CMP, 7377-1 #### [facility] ([id number]) [address] [place] [address], [facility] [address] [place] [address] Eosinophils (Bld) [#/Vol] 0.1 10*3/uL Normal 0.0-0.4 [facility] Comment on above: Performed By: #### C BCA, CMP, 2856- #### [facility] ([id number]) [address], [address] [place] [address] Eosinophils/100 WBC (Bld) 0.8 % Normal [facility] Comment on above: Performed By: #### C BCA, CMP, 2856-1 #### [facility] ([id number]) [address], [address] [place] [address] Erythrocyte distribution width (RBC) [Ratio] 13.2 % Normal 11.5-15.0 [facility] Comment on above: Performed By: #### Omar AGUERO, CMP, 2856-1 #### [facility] ([id number]) [address], [address] [place] [address] Hematocrit (Bld) [Volume fraction] 39.2 % Normal 39-49 [facility] Comment on above: Performed By: #### Omar BCA, CMP, 2856-1 #### [facility] ([id number]) [address], [address] [place] [address] Hemoglobin (Bld) [Mass/Vol] 13.3 g/dL Normal 13.0-17.0 [facility] Comment on above: Performed By: #### Omar BCA, CMP, 2856-1 #### [facility] ([id number]) [address], [address] [place] [address] Lymphocytes (Bld) [#/Vol] 1.6 10*3/uL Normal 1.0-3.5 [facility] Comment on above: Performed By: #### C BCA, CMP, 2856-1 #### [facility] ([id number]) [address], [address] [place] [address] Lymphocytes/100 WBC (Bld) 18.8 % Normal [facility] Comment on above: Performed By: #### Omar BCA, CMP, 2856-1 #### [facility] ([id number]) [address], [address] [place] [address] [facility] (RBC) [Entitic mass] 30.0 pg Normal 27-34 [facility] Comment on above: Performed By: #### Omar AGUERO, CMP, 2857-1 #### [facility] ([id number]) [address], [address] [place] [address] MCHC (RBC) [Mass/Vol] 34.0 g/dL Normal 32-36 [facility] Comment on above: Performed By: #### Omar AGUERO, CMP, 7-1 #### [facility] ([id number]) [address], [address] [place] [address] MCV (RBC) [Entitic vol] 88 fL Normal 80-100 [facility] Comment on above: Performed By: #### Omar AGUERO, CMP, 2856-1 #### [facility] ([id number]) [address], [address] [place] [address] Monocytes (Bld) [#/Vol] 0.8 10*3/uL Normal 0-0.9 [facility] Comment on above: Performed By: #### Omar AGUERO, CMP, 2856-1 #### [facility] ([id number]) [address], [address] [place] [address] Monocytes/100 WBC (Bld) 9.1 % Normal [facility] Comment on above: Performed By: #### Omar BCA, CMP, 2856-1 #### [facility] ([id number]) [address], [address] [place] [address] Neutrophils/100 WBC (Bld) 70.6 % Normal [facility] Comment on above: Performed By: #### Omar BCA, CMP, 2857-1 #### [facility] ([id number]) [address], [address] [place] [address] Platelet mean volume (Bld) [Entitic vol] 8.2 fL Normal 7-12 [facility] Comment on above: Performed By: #### C BCA, CMP, 2857-1 #### [facility] ([id number]) [address], [address] [place] [address] Platelets (Bld) [#/Vol] 356 10*3/uL Normal 150-450 [facility] Comment on above: Performed By: #### C BCA, CMP, 2857-1 #### [facility] ([id number]) [address], [address] [place] [address] RBC COUNT 4.43 X10E12/L Normal 4.10-5.70 [facility] Comment on above: Performed By: #### C BCA, CMP, 2857-1 #### [facility] ([id number]) [address], [address] [place] [address] WBC (Bld) [#/Vol] 8.4 10*3/uL Normal 4.0-11.0 [facility] Comment on above: Performed By: #### C BCA, CMP, 7-1 #### [facility] ([id number]) [address], [address] [place] [address] COMPREHENSIVE METABOLIC PANE Luis 2023 Albumin [Mass/Vol] 4.6 g/dL Normal 3.2-5.3 [facility] Comment on above: Performed By: #### C BCA, CMP, 2857-1 #### [facility] ([id number]) [address], [address] [place] [address] ALP [Catalytic activity/Vol] 60 U/L Normal 39-130 [facility] Comment on above: Performed By: #### C BCA, CMP, 2857-1 #### [facility] ([id number]) [address], [address] [place] [address] ALT [Catalytic activity/Vol] 13 U/L Normal 0-40 [facility] Comment on above: Performed By: #### C BCA, CMP, 7-1 #### [facility] ([id number]) [address], [address] [place] [address] Anion gap [Moles/Vol] 9 mmol/L Normal 5-15 [facility] Comment on above: Performed By: #### C BCA, CMP, 7-1 #### [facility] ([id number]) [address], [address] [place] [address] AST [Catalytic activity/Vol] 18 U/L Normal 0-41 [facility] Comment on above: Performed By: #### C BCA, CMP, 2856-1 #### [facility] ([id number]) [address], [address] [place] [address] Bilirubin [Mass/Vol] 0.4 mg/dL Normal 0.3-1.2 [facility] Comment on above: Performed By: #### C BCA, CMP, 2856-1 #### [facility] ([id number]) [address], [address] [place] [address] Calcium [Mass/Vol] 9.7 mg/dL Normal 8.5-10.5 [facility] Comment on above: Performed By: #### C BCA, CMP, 2856-1 #### [facility] ([id number]) [address], [address] [place] [address] Chloride [Moles/Vol] 98 mmol/L Normal 98-109 [facility] Comment on above: Performed By: #### C BCA, CMP, 7-1 #### [facility] ([id number]) [address], [address] [place] [address] CO2 [Moles/Vol] 29 mmol/L Normal 22-32 [facility] Comment on above: Performed By: #### C BCA, CMP, 2857-1 #### [facility] ([id number]) [address] [address] [place] [address] Creatinine [Mass/Vol] 0.86 mg/dL Normal 0.60-1.30 [facility] Comment on above: Result Comment: METH OD TRACEABLE TO IDMS STANDARD Performed By: #### C SIXTO AGUERO, 2857-1 #### [facility] ([id number]) [address] [address] [place] [address] eGFR (CKD-EPI) NON-RACE DEPENDENT >90 Normal >59 [facility] Comment on above: Result Comment: Reported eGFR is based on the CKD-EPI 2020 equation that does not use a race coefficient. Performed By: #### C MORE CMP, 2856-1 #### [facility] ([id number]) [address] [address] [place] [address] Glucose [Mass/Vol] 108 mg/dL High 65-99 [facility] Comment on above: Performed By: #### C MORE CMP, 2856-1 #### [facility] ([id number]) [address] [address] [place] [address] Potassium [Moles/Vol] 4.2 mmol/L Normal 3.5-5.0 [facility] Comment on above: Performed By: #### Omar AGUERO CMP, 2856-1 #### [facility] ([id number]) [address] [address] [place] [address] Protein [Mass/Vol] 8.2 g/dL High 6.0-8.0 [facility] Comment on above: Performed By: #### C MORE CMP, 7-1 #### [facility] ([id number]) [address] [address] [place] [address] Sodium [Moles/Vol] 136 mmol/L Normal 134-146 [facility] Comment on above: Performed By: #### Omar BCA CMP, 2857-1 #### [facility] ([id number]) [address], [address] [place] [address] Urea nitrogen [Mass/Vol] 16 mg/dL Normal 5-27 [facility] Comment on above: Performed By: #### Omar AGUERO, SIXTO, 2857-1 #### [facility] ([id number]) [address], [address] [place] [address] Prostate specific Ag [Mass/V ol]on 2023 PROSTATIC SPEC ANT <0.01 Normal 0.00-4.00 [facility] Comment on above: Result Comment: The method used for this test is Alexus [employer] DXI chemiluminescent immunoassay. Values obtained by different assay methods cannot be used interchangeably. Performed By: #### C MORE, SIXTO, 2857-1 #### [facility] ([id number]) [address] [place] [address] Office Visiton 09-25-2023 Follow-up visit [id number] Kath Molina 1955 M Date Provider Department Center 09/25/2023 1596-CASTRO STONE [facility] No family history on file Level of Service:[address] [place] OFFICE/OUTPATIENT ESTABLISHED MOD MDM 30 MIN Normal [facility] CBC W Auto Differential pane l (Bld)on 09-04-2023 Basophils (Bld) [#/Vol] 49 10*3/uL [facility] Basophils/100 WBC (Bld) 1.0 % [facility] Eosinophils (Bld) [#/Vol] 108 10*3/uL [facility] Eosinophils/100 WBC (Bld) 2.2 % [facility] Erythrocyte distribution width (RBC) [Ratio] 12.7 % 11.0 - 15.0 % [facility] Hematocrit (Bld) [Volume fraction] 35.0 % Low 38.5 - 50.0 % [facility] Healthcar e Hemoglobin (Bld) [Mass/Vol] 11.9 g/dL Low 13.2 - 17.1 g/dL [facility] Lymphocytes (Bld) [#/Vol] 1171 10*3/uL [facility] Lymphocytes/100 WBC (Bld) 23.9 % [facility] MCH (RBC) [Entitic mass] 30.4 pg 27.0 - 33.0 pg [facility] MCHC (RBC) [Mass/Vol] 34.0 g/dL 32.0 - 36.0 g/dL [facility] MCV (RBC) [Entitic vol] 89.3 fL 80.0 - 100.0 fL [facility] Monocytes (Bld) [#/Vol] 529 10*3/uL [facility] Monocytes/100 WBC (Bld) 10.8 % [facility] Neutrophils (Bld) [#/Vol] 3043 10*3/uL [facility] Neutrophils/100 WBC (Bld) 62.1 % [facility] Platelet mean volume (Bld) [Entitic vol] 10.8 fL 7.5 - 12.5 fL [facility] Platelets (Bld) [#/Vol] 238 10*3/uL [facility] RBC (Bld) [#/Vol] 3.92 10*6/uL Low [facility] WBC (Bld) [#/Vol] 4.9 10*3/uL [facility] Comprehensive metabolic pane luis 09-04-2023 Albumin [Mass/Vol] 4.3 g/dL 3.6 - 5.1 g/dL [facility] Albumin/Globulin [Mass ratio] 1.7 {ratio} [facility] ALP [Catalytic activity/Vol] 44 U/L 35 - 144 U/L [facility] ALT [Catalytic activity/Vol] 15 U/L 9 - 46 U/L [facility] AST [Catalytic activity/Vol] 17 U/L 10 - 35 U/L [facility] Bilirubin [Mass/Vol] 0.3 mg/dL 0.2 - 1 .2 mg/dL [facility] Calcium [Mass/Vol] 8.9 mg/dL 8.6 - 10. 3 mg/dL [facility] Chloride [Moles/Vol] 103 mmol/L 98 - 11 0 mmol/L [facility] CO2 [Moles/Vol] 28 mmol/L 20 - 32 mmol/L [facility] Creatinine [Mass/Vol] 0.85 mg/dL 0.70 - 1.35 mg/dL [facility] GFR/1.73 sq M.predicted among non-blacks MDRD (S/P/Bld) [Vol rate/Area] 94 mL/min/{1.73_m2} > OR = 60 mL/min/1.73m2 [facility] Globulin (S) [Mass/Vol] 2.6 g/dL [facility] Glucose [Mass/Vol] 165 mg/dL High 65 - 99 mg/dL [facility] Comment on above: Fasting reference interval For someone without known diabetes, a glucose value >125 mg/dL indicates that they may have diabetes and this should be confirmed with a follow-up test. Potassium [Moles/Vol] 3.9 mmol/L 3.5 - 5.3 mmol/L [facility] Protein [Mass/Vol] 6.9 g/dL 6.1 - 8.1 g/dL [facility] Sodium [Moles/Vol] 139 mmol/L 135 - 146 mmol/L [facility] Urea nitrogen [Mass/Vol] 12 mg/dL 7 - 25 mg/dL [facility] Urea nitrogen/Creatinine [Mass ratio] SEE NOTE: [facility] Comment on above: Not Reported: BUN an d Creatinine are within reference range. Hemoglobin A1con 09-04-2023 HbA1c (Bld) [Mass fraction] 6.6 % High NINF [facility] Comment on above: For someone without known diabetes, a hemoglobin A1c value of 6.5% or greater indicates that they may have diabetes and this should be confirmed with a follow-up test. For someone with known diabetes, a value <7% indicates that their diabetes is well controlled and a value greater than or equal to 7% indicates suboptimal control. A1c targets should be individualized based on duration of diabetes, age, comorbid conditions, and other considerations. Currently, no consensus exists regarding use of hemoglobin A1c for diagnosis of diabetes for children. HbA1c performed on [employer] platform. Effective 07/23/23 a change in test platforms may have shifted HbA1c results compared to historical results. Lipid 1996 panelon 4 Cholesterol [Mass/Vol] 225 mg/dL High NINF - 200 mg/dL [facility] Cholesterol in HDL [Mass/Vol] 43 mg/dL > OR = 40 [facility] Cholesterol in LDL [Mass/Vol] 133 mg/dL High mg/dL (calc) [facility] Comment on above: Reference range: <10 0 Desirable range <100 mg/dL for primary prevention; <70 mg/dL for patients with CHD or diabetic patients with > or = 2 CHD risk factors. LDL-C is now calculated using the Janina calculation, which is a validated novel method providing better accuracy than the Friedewald equation in the estimation of LDL-C. Bruce MICHAUD et al. CASH. 2013;310(19): 2402-5820 (http://education.JoGuru/faq/SKS186) Cholesterol non HDL [Mass/Vol] 182 mg/dL High [facility] Comment on above: For patients with di abetes plus 1 major ASCVD risk factor, treating to a non-HDL-C goal of <100 mg/dL (LDL-C of <70 mg/dL) is considered a therapeutic option. Cholesterol.total/Ch olesterol in HDL [Mass ratio] 5.2 {ratio} High [facility] Triglyceride [Mass/Vol] 345 mg/dL High [facility] - 150 mg/dL [facility] Comment on above: If a non-fasting specimen was collected, consider repeat triglyceride testing on a fasting specimen if clinically indicated. Ata et al. J. of Clin. Lipidol. 2015;9:129-169. No Panel Informationon 09-04 Interpretation and review of laboratory results Abnormal [facility] MULTIPLE TESTING PRIORITIES; ROUTINE TESTING TO FOLLOW. [employer] Organization Information Site ID: QPT Name: [facility] Address: [address] [place] [address], [address] [place] [phone] Director: Oscar Beckman MD [facility] PSAon 09-04-2023 Prostate specific Ag [Mass/Vol] ng/mL < OR = 4.00 ng/mL [facility] Comment on above: The total PSA value from this assay system is standardized against the WHO standard. The test result will be approximately 20% lower when compared to the equimolar-standardized total PSA (Alexus Kimberly). Comparison of serial PSA results should be interpreted with this fact in mind. This test was performed using the Siemens chemiluminescent method. Values obtained from different assay methods cannot be used interchangeably. PSA levels, regardless of value, should not be interpreted as absolute evidence of the presence or absence of disease. OPERATIVE REPORTon 2 OPERATIVE REPORT [place] [id number] OPERATIVE REPORT PATIENT NAME: KATH MOLINA : 1955 MED REC NO: [id number] ROOM: 23 ACCOUNT NO: [id number] ADMIT DATE: 06/15/2022 PROVIDER: Stephanie West DATE OF PROCEDURE: 06/15/2022 Procedure was done at [facility] Emergency Department at the bedside. PREPROCEDURE DIAGNOSES: Irregular laceration of the lateral canthus region and upper lid of the left eye due to dog bite. POSTPROCEDURE DIAGNOSES: Irregular laceration of the lateral canthus region and upper lid of the left eye due to dog bite. OPERATION PERFORMED: Suture repair of the left upper lid and distal to the lateral canthal angle. SURGEON: Stephanie West MD INDICATIONS: Irregular laceration of the lateral canthus region and upper lid of the left eye due to dog bite. The patient was bitten by dog approximately 16 hours earlier, had multiple injuries most of which had been previously sutured; however, the area of concern, the left upper lid and lateral canthus were left open. OPERATIVE PROCEDURE: 6-0 [address] was used to place deep sutures to approximate the tissue and then superficial sutures to close the skin. This was done in the left upper lid first and then attention was turned to the area of the lateral canthus where a similar closer was performed. Skin was somewhat under tension due to swelling and there was minor bleeding due to the patient being on aspirin. Local anesthesia was used, infiltrated into the areas to be sutured. The patient tolerated the procedure well and was free to be discharged from the Ophthalmology standpoint and to follow up as needed as an outpatient either at my office or close to home in [facility] where he resides. STEPHANIE WEST KL/Navid_ARIANNE_T Doc#: [id number] CC: Normal [facility] Basic Metab w/rfx MGon 06-15 Anion gap [Moles/Vol] 11 mmol/L Normal 9-17 [facility] Comment on above: Performed By: #### B MPX #### [facility] [employer] [address] [place] [address] File System Installer: Brayan Wright MD Calcium [Mass/Vol] 9.2 mg/dL Normal 8.6-10.4 [facility] Comment on above: Performed By: #### B MPX #### [address] [address] File System Installer: Brayan Wright MD Chloride [Moles/Vol] 100 mmol/L Normal 98-107 [facility] Comment on above: Performed By: #### B MPX #### [address] [address] File System Installer: Brayan Wright MD CO2 [Moles/Vol] 27 mmol/L Normal 20-31 [facility] Comment on above: Performed By: #### B MPX #### [address] [address] File System Installer: Brayan Wright MD Creatinine [Mass/Vol] 0.85 mg/dL Normal 0.70-1.20 [facility] Comment on above: Performed By: #### B MPX #### [address] [address] File System Installer: Brayan Wright MD GFR/1.73 sq M.predicted among non-blacks MDRD (S/P/Bld) [Vol rate/Area] mL/min/{1.73_m2} Normal >60 [facility] Comment on above: Result Comment: Effective May 07, 2022 These results are not intended for use in patients <18 years of age. eGFR results are calculated without a race factor using the 2020 CKD-EPI equation. Careful clinical correlation is recommended, particularly when comparing to results calculated using previous equations. The CKD-EPI equation is less accurate in patients with extremes of muscle mass, extra-renal metabolism of creatine, excessive creatine ingestion, or following therapy that affects renal tubular secretion. Performed By: #### B MPX #### [facility] [address] [place] [address], [place] [address] File System Installer: Brayan Wright MD Glucose [Mass/Vol] 151 mg/dL High 70-99 [facility] Comment on above: Performed By: #### B MPX #### [facility] [place] [address] File System Installer: Brayan Wright MD Potassium [Moles/Vol] 4.1 mmol/L Normal 3.7-5.3 [facility] Comment on above: Performed By: #### B MPX #### [facility] [address] [place] [address] File System Installer: Brayan Wright MD Sodium [Moles/Vol] 138 mmol/L Normal 135-144 [facility] Comment on above: Performed By: #### B MPX #### [facility] [address] [place] [address] [employer] System Installer: Brayan Wright MD Urea nitrogen [Mass/Vol] 18 mg/dL Normal 8-23 [facility] Comment on above: Performed By: #### B MPX #### [facility] [employer] [address] [place] [address] File System Installer: Brayan Wright MD Basic Metabolic Panelon 11- Anion gap [Moles/Vol] 10 mmol/L 9 - 17 mmol/L [facility] Calcium [Mass/Vol] 9.2 mg/dL 8.6 - 10. 4 mg/dL [employer] [facility] Chloride [Moles/Vol] 97 mmol/L Low 98 - 10 7 mmol/L [employer] CO2 [Moles/Vol] 28 mmol/L 20 - 31 mmol/L [facility] Creatinine [Mass/Vol] 0.91 mg/dL 0.70 - 1.20 mg/dL [facility] [employer] GFR/1.73 sq M.predicted MDRD (S/P/Bld) [Vol rate/Area] - PINF [facility] Comment on above: Effective May 07, 2022 These results are not intended for use in patients <18 years of age. eGFR results are calculated without a race factor using the 2020 CKD-EPI equation. Careful clinical correlation is recommended, particularly when comparing to results calculated using previous equations. The CKD-EPI equation is less accurate in patients with extremes of muscle mass, extra-renal metabolism of creatine, excessive creatine ingestion, or following therapy that affects renal tubular secretion. Glucose [Mass/Vol] 149 mg/dL High 70 - 99 mg/dL [facility] Interpretation and review of laboratory results Abnormal [facility] Potassium [Moles/Vol] 4.2 mmol/L 3.7 - 5.3 mmol/L [facility] Sodium [Moles/Vol] 135 mmol/L 135 - 144 mmol/L [facility] Urea nitrogen (BldV) [Mass/Vol] 19 mg/dL 8 - 23 mg/dL [facility] Basic Metabolic Panel w/ Ref carlos to MGon 06-15-2022 Anion gap [Moles/Vol] 11 mmol/L 9 - 17 mmol/L [facility] Calcium [Mass/Vol] 9.2 mg/dL 8.6 - 10. 4 mg/dL [facility] Chloride [Moles/Vol] 100 mmol/L 98 - 10 7 mmol/L [facility] CO2 [Moles/Vol] 27 mmol/L 20 - 31 mmol/L [facility] Creatinine [Mass/Vol] 0.85 mg/dL 0.70 - 1.20 mg/dL [facility] GFR/1.73 sq M.predicted MDRD (S/P/Bld) [Vol rate/Area] - PINF [facility] Comment on above: Effective May 07, 2022 These results are not intended for use in patients <18 years of age. eGFR results are calculated without a race factor using the 2020 CKD-EPI equation. Careful clinical correlation is recommended, particularly when comparing to results calculated using previous equations. The CKD-EPI equation is less accurate in patients with extremes of muscle mass, extra-renal metabolism of creatine, excessive creatine ingestion, or following therapy that affects renal tubular secretion. Glucose [Mass/Vol] 151 mg/dL High 70 - 99 mg/dL [facility] Interpretation and review of laboratory results Abnormal [facility] Potassium [Moles/Vol] 4.1 mmol/L 3.7 - 5.3 mmol/L [facility] Sodium [Moles/Vol] 138 mmol/L 135 - 144 mmol/L [facility] Urea nitrogen (BldV) [Mass/Vol] 18 mg/dL 8 - 23 mg/dL [facility] Basic Metabolic Profon 06-15 Anion gap [Moles/Vol] 10 mmol/L Normal 9-17 [facility] Comment on above: Performed By: #### C DP, BMP #### [address] [address] File System Installer: Brayan Wright MD Calcium [Mass/Vol] 9.2 mg/dL Normal 8.6-10.4 [facility] Comment on above: Performed By: #### C DP, BMP #### [facility] [employer] [address] [place] [address] File System Installer: Brayan Wright MD Chloride [Moles/Vol] 97 mmol/L Low 98-107 [facility] Comment on above: Performed By: #### C DP, BMP #### [facility] [employer] [address] [place] [address] File System Installer: Brayan Wright MD CO2 [Moles/Vol] 28 mmol/L Normal 20-31 [facility] Comment on above: Performed By: #### C DP, BMP #### [facility] [address] [place] [address] File System Installer: Brayan Wright MD Creatinine [Mass/Vol] 0.91 mg/dL Normal 0.70-1.20 [facility] Comment on above: Performed By: #### C DP, BMP #### [facility] [employer] [address] [place] [address] File System Installer: Brayan Wright MD GFR/1.73 sq M.predicted among non-blacks MDRD (S/P/Bld) [Vol rate/Area] mL/min/{1.73_m2} Normal >60 [facility] Comment on above: Result Comment: Effective May 07, 2022 These results are not intended for use in patients <18 years of age. eGFR results are calculated without a race factor using the 2020 CKD-EPI equation. Careful clinical correlation is recommended, particularly when comparing to results calculated using previous equations. The CKD-EPI equation is less accurate in patients with extremes of muscle mass, extra-renal metabolism of creatine, excessive creatine ingestion, or following therapy that affects renal tubular secretion. Performed By: #### C DP, BMP #### [facility] [address] [place] [address] File System Installer: Brayan Wright MD Glucose [Mass/Vol] 149 mg/dL High 70-99 [facility] Comment on above: Performed By: #### C DP, BMP #### [facility] [address] [place] [address] File System Installer: Brayan Wright MD Potassium [Moles/Vol] 4.2 mmol/L Normal 3.7-5.3 [facility] Comment on above: Performed By: #### C DP, BMP #### [facility] [address] [place] [phone] File System Installer: Brayan Wright MD Sodium [Moles/Vol] 135 mmol/L Normal 135-144 [facility] Comment on above: Performed By: #### C DP, BMP #### [facility] [address] [place] [address] File System Installer: Brayan Wright MD Urea nitrogen [Mass/Vol] 19 mg/dL Normal 8-23 [facility] Comment on above: Performed By: #### C DP, BMP #### [facility] [address] [place] [address] File System Installer: Brayan Wright MD CBC with Auto Differentialon 06-15-2022 Absolute Eos # 0.05 [facility] Absolute Immature Granulocyte 0.07 [facility] Absolute Lymph # 1.40 [facility] Absolute Storey # 1.12 [facility] Basophils (Bld) [#/Vol] 0.07 10*3/uL [facility] Basophils/100 WBC (Bld) 1 % 0 - 2 % [facility] Eosinophils/100 WBC (Bld) 0 % Low 1 - 4 % [facility] Hematocrit (Bld) [Volume fraction] 39.0 % Low 40.7 - 50.3 % [facility] Hemoglobin (Bld) [Mass/Vol] 13.3 g/dL 13.0 - 17.0 g/dL [facility] Immature granulocytes/100 WBC (Bld) 1 % High 0 [facility] Interpretation and review of laboratory results Abnormal [facility] Lymphocytes/100 WBC (Bld) 12 % Low 24 - 43 % [facility] MCH (RBC) [Entitic mass] 29.8 pg 25.2 - 33.5 pg [facility] MCHC (RBC) [Mass/Vol] 34.1 g/dL 28.4 - 34.8 g/dL [facility] MCV (RBC) [Entitic vol] 87.4 fL 82.6 - 102.9 fL [facility] Monocytes/100 WBC (Bld) 10 % 3 - 12 % [facility] NRBC Automated 0.0 0.0 per 100 WBC [facility] Platelet distribution width (Bld) [Ratio] 12.8 % 11.8 - 14.4 % [facility] Platelet mean volume (Bld) [Entitic vol] 9.9 fL 8.1 - 13.5 fL [facility] Platelets (Bld) [#/Vol] 277 10*3/uL [facility] RBC (Bld) [#/Vol] 4.46 10*6/uL 4.21 - 5.7 7 m/uL [facility] Segmented neutrophils/100 WBC (Bld) 76 % High 36 - 65 % [facility] Segs Absolute 9.05 High [facility] WBC (Bld) [#/Vol] 11.8 10*3/uL High [facility] CBC with Diffon 06-15-2022 Abs. Basophil 0.07 k/uL Normal 0.00-0.20 [facility] Comment on above: Performed By: #### C DP, BMP #### [facility] [employer] [address] [place] [address] File System Installer: Brayan Wright MD Abs.Imm.Granulocyte 0.07 k/uL Normal 0.00-0.30 [facility] Comment on above: Performed By: #### C DP, BMP #### [facility] [employer] [address] [place] [address] File System Installer: Brayan Wright MD Abs.Neutrophil (Seg) 9.05 k/uL High 1.50-8.10 [facility] Comment on above: Performed By: #### C DP, BMP #### [facility] [employer] [address] [place] [address] File System Installer: Brayan Wright MD Basophils/100 WBC (Bld) 1 % Normal 0-2 [facility] Comment on above: Performed By: #### C DP, BMP #### [facility] [employer] [address] [place] [address] File System Installer: Brayan Wright MD Eosinophils (Bld) [#/Vol] 0.05 10*3/uL Normal 0.00-0.44 [facility] Comment on above: Performed By: #### C DP, BMP #### [facility] [employer] [address] [place] [address] File System Installer: Brayan Wright MD Eosinophils/100 WBC (Bld) 0 % Low 1-4 [facility] Comment on above: Performed By: #### C DP, BMP #### [facility] [employer] [address] [place] [address] File System Installer: Brayan Wright MD Erythrocyte distribution width (RBC) [Ratio] 12.8 % Normal 11.8-14.4 [facility] Comment on above: Performed By: #### C DP, BMP #### [address] [address] File System Installer: Brayan Wright MD Hematocrit (Bld) [Volume fraction] 39.0 % Low 40.7-50.3 [facility] Comment on above: Performed By: #### C DP, BMP #### [address] [address] File System Installer: Brayan Wright MD Hemoglobin (Bld) [Mass/Vol] 13.3 g/dL Normal 13.0-17.0 [facility] Comment on above: Performed By: #### C DP, BMP #### [address] [address] File System Installer: Brayan Wright MD Immature granulocytes/100 WBC (Bld) 1 % High 0 [facility] Comment on above: Performed By: #### C DP, BMP #### [address] [address] File System Installer: Brayan Wright MD Lymphocytes (Bld) [#/Vol] 1.40 10*3/uL Normal 1.10-3.70 [facility] Comment on above: Performed By: #### C DP, BMP #### [address] [address] File System Installer: Brayan Wright MD Lymphocytes/100 WBC (Bld) 12 % Low 24-43 [facility] Comment on above: Performed By: #### C DP, BMP #### [address] [address] File System Installer: Brayan Wright MD MCH (RBC) [Entitic mass] 29.8 pg Normal 25.2-33.5 [facility] Comment on above: Performed By: #### C DP, BMP #### [address] [address] File System Installer: Brayan Wright MD MCHC (RBC) [Mass/Vol] 34.1 g/dL Normal 28.4-34.8 [facility] Comment on above: Performed By: #### C DP, BMP #### [address] [address] File System Installer: Brayan Wright MD MCV (RBC) [Entitic vol] 87.4 fL Normal 82.6-102.9 [facility] Comment on above: Performed By: #### C DP, BMP #### [address] [address] File System Installer: Brayan Wright MD Monocytes (Bld) [#/Vol] 1.12 10*3/uL Normal 0.10-1.20 [facility] Comment on above: Performed By: #### C DP, BMP #### [address] [address] File System Installer: Brayan Wirght MD Monocytes/100 WBC (Bld) 10 % Normal 3-12 [facility] Comment on above: Performed By: #### C DP, BMP #### [address] [address] File System Installer: Brayan Wright MD Neutrophil (Seg) 76 % High 36-65 [facility] Comment on above: Performed By: #### C DP, BMP #### [address] [address] File System Installer: Brayan Wright MD NRBC Automated 0.0 per 100 WBC Normal 0.0 [facility] Comment on above: Performed By: #### C DP, BMP #### [address] [place] [address] File System Installer: Brayan Wright MD Platelet mean volume (Bld) [Entitic vol] 9.9 fL Normal 8.1-13.5 [facility] Comment on above: Performed By: #### C DP, BMP #### [address] [address] File System Installer: Brayan Wright MD Platelets (Bld) [#/Vol] 277 10*3/uL Normal 138-453 [facility] Comment on above: Performed By: #### C DP, BMP #### [address] [address] File System Installer: Brayan Wrgiht MD RBC (Bld) [#/Vol] 4.46 10*6/uL Normal 4.21-5.77 [facility] Comment on above: Performed By: #### C DP, BMP #### [address] [address] File System Installer: Brayan Wright MD WBC (Bld) [#/Vol] 11.8 10*3/uL High 3.5-11.3 [facility] Comment on above: Performed By: #### C DP, BMP #### [address] [address] File System Installer: Brayan Wright MD CT FACIAL BONES WO CONTRASTo n 06-15-2022 CT FACIAL BONES WO CONTRAST EXAMINATION: CT OF THE FACE WITHOUT CONTRAST 06/15/2022 4:14 am TECHNIQUE: CT of the face was performed without the administration of intravenous contrast. Multiplanar reformatted images are provided for review. Automated exposure control, iterative reconstruction, and/or weight based adjustment of the mA/kV was utilized to reduce the radiation dose to as low as reasonably achievable. COMPARISON: None HISTORY: ORDERING SYSTEM PROVIDED HISTORY: left eye injury, dog bite TECHNOLOGIST PROVIDED HISTORY: left eye injury, dog bite Decision Support Exception - unselect if not a suspected or confirmed emergency medical condition->Emergency Medical Condition (MA) FINDINGS: FACIAL BONES: The frontal sinuses, orbital cohen, maxilla, pterygoid plates, zygomatic arches, hard palate, nasal bones and mandible are intact. The temporomandibular joints are aligned. ORBITAL CONTENTS: The globes appear intact. The extraocular muscles, optic nerve sheath complexes and lacrimal glands appear unremarkable. No retrobulbar hematoma or mass is seen. SINUSES: There is no evidence of acute sinusitis, such as air fluid level. The mastoid air cells are clear. SOFT TISSUES: Soft tissue gas, soft tissue swelling left face, sequelae of laceration in the appropriate clinical context. Left periorbital hematoma. IMPRESSION: No acute facial bone trauma. Left periorbital swelling/hematoma, left facial soft tissue hematoma, and left facial soft tissue gas, likely sequelae of reported trauma. Left globe appears intact. Interpreted by: Rafael Loya MD Signed by: Rafael Loya MD 06/15/22 Final result Normal [facility] No acute facial bone trauma. Left periorbital swelling/hematoma, left facial soft tissue hematoma, and left facial soft tissue gas, likely sequelae of reported trauma. Left globe appears intact. [facility] RIS CONSOLIDATED EXAMINATION: CT OF THE FACE WITHOUT CONTRAST 06/15/2022 4:14 am TECHNIQUE: CT of the face was performed without the administration of intravenous contrast. Multiplanar reformatted images are provided for review. Automated exposure control, iterative reconstruction, and/or weight based adjustment of the mA/kV was utilized to reduce the radiation dose to as low as reasonably achievable. COMPARISON: None HISTORY: ORDERING SYSTEM PROVIDED HISTORY: left eye injury, dog bite TECHNOLOGIST PROVIDED HISTORY: left eye injury, dog bite Decision Support Exception - unselect if not a suspected or confirmed emergency medical condition->Emergency Medical Condition (MA) FINDINGS: FACIAL BONES: The frontal sinuses, orbital cohen, maxilla, pterygoid plates, zygomatic arches, hard palate, nasal bones and mandible are intact. The temporomandibular joints are aligned. ORBITAL CONTENTS: The globes appear intact. The extraocular muscles, optic nerve sheath complexes and lacrimal glands appear unremarkable. No retrobulbar hematoma or mass is seen. SINUSES: There is no evidence of acute sinusitis, such as air fluid level. The mastoid air cells are clear. SOFT TISSUES: Soft tissue gas, soft tissue swelling left face, sequelae of laceration in the appropriate clinical context. Left periorbital hematoma. [facility] Rafael Loya MD - 06/15/2022 EXAMINATION: CT OF THE FACE WITHOUT CONTRAST 06/15/2022 4:14 am TECHNIQUE: CT of the face was performed without the administration of intravenous contrast. Multiplanar reformatted images are provided for review. Automated exposure control, iterative reconstruction, and/or weight based adjustment of the mA/kV was utilized to reduce the radiation dose to as low as reasonably achievable. COMPARISON: None HISTORY: ORDERING SYSTEM PROVIDED HISTORY: left eye injury, dog bite TECHNOLOGIST PROVIDED HISTORY: left eye injury, dog bite Decision Support Exception - unselect if not a suspected or confirmed emergency medical condition->Emergency Medical Condition (MA) FINDINGS: FACIAL BONES: The frontal sinuses, orbital cohen, maxilla, pterygoid plates, zygomatic arches, hard palate, nasal bones and mandible are intact. The temporomandibular joints are aligned. ORBITAL CONTENTS: The globes appear intact. The extraocular muscles, optic nerve sheath complexes and lacrimal glands appear unremarkable. No retrobulbar hematoma or mass is seen. SINUSES: There is no evidence of acute sinusitis, such as air fluid level. The mastoid air cells are clear. SOFT TISSUES: Soft tissue gas, soft tissue swelling left face, sequelae of laceration in the appropriate clinical context. Left periorbital hematoma. IMPRESSION: No acute facial bone trauma. Left periorbital swelling/hematoma, left facial soft tissue hematoma, and left facial soft tissue gas, likely sequelae of reported trauma. Left globe appears intact. [facility] Phone: Radiology Study observation (narrative) [facility] Phone: CT FACIAL BONES WO CONTRASTO rdered By: Rafael Loya on 06-15-2022 [employer] Phone: CBC AUTO DIFFon 09-25-2021 BASO # 0.1 103/ul Normal 0.0-0.1 [facility] Comment on above: Performed By: #### C BC #### [facility] [address] [place] [address] Dr. Brayden Ellington Basophils/100 WBC (Bld) 0.9 % Normal 0.2-2.0 [facility] Comment on above: Performed By: #### C BC #### [facility] [address] [place] [address] Dr. Brayden Ellington EO # 0.0 103/ul Normal 0.0-0.7 [facility] Comment on above: Performed By: #### C BC #### [facility] [address] [place] [address] Dr. Brayden Ellington Eosinophils/100 WBC (Bld) 0.5 % Critically low 0.9-7.0 [facility] Comment on above: Performed By: #### C BC #### [facility] [address] [place] [address] Dr. Brayden Ellington Erythrocyte distribution width (RBC) [Ratio] 13.0 % Normal 11.0-15.0 [facility] Comment on above: Performed By: #### C BC #### [facility] [address] [place] [address] Dr. Brayden Ellington Hematocrit (Bld) [Volume fraction] 42.9 % Normal 42.0-54.0 [facility] Comment on above: Performed By: #### C BC #### [facility] [address] [place] [address] Dr. Brayden Ellington Hemoglobin (Bld) [Mass/Vol] 14.6 g/dL Normal 14.0-18.0 [facility] Comment on above: Performed By: #### C BC #### [facility] [address] [place] [address] Dr. Brayden Ellington IG # 0.04 10e3/ul Critically high 0.00-0.03 [facility] Comment on above: Performed By: #### C BC #### [facility] [address] [place] [address] Dr. Brayden Ellington IG % 0.7 % Critically high 0.0-0.5 [facility] Comment on above: Performed By: #### C BC #### [facility] [address] [place] [address] Dr. Brayden Ellington LYMPH # 1.0 103/ul Critically low 1.2-3.8 [facility] Comment on above: Performed By: #### C BC #### [facility] [address] [place] [address] Dr. Brayden Ellington Lymphocytes/100 WBC (Bld) 16.9 % Critically low 20.5-60.0 [facility] Comment on above: Performed By: #### C BC #### [facility] [address] [place] [address] Dr. Brayden Ellington MANUAL DIFF REQ NO Normal [facility] Comment on above: Performed By: #### C BC #### [facility] [address] [place] [address] Dr. Brayden Ellington MCH (RBC) [Entitic mass] 29.0 pg Normal 25.9-34.0 [facility] Comment on above: Performed By: #### C BC #### [facility] [address] [place] [address] Dr. Brayden Ellington MCHC (RBC) [Mass/Vol] 34.0 g/dL Normal 29.9-35.2 [facility] Comment on above: Performed By: #### C BC #### [facility] [address] [place] [address] Dr. Brayden Ellington MCV (RBC) [Entitic vol] 85.3 fL Normal 80.0-94.0 [facility] Comment on above: Performed By: #### C BC #### [facility] [address] [place] [address] Dr. Brayden Ellington MONO # 0.6 103/ul Normal 0.3-0.8 [facility] Comment on above: Performed By: #### C BC #### [facility] [address] [place] [address] Dr. Brayden Ellington Monocytes/100 WBC (Bld) 9.8 % Normal 1.7-12.0 [facility] Comment on above: Performed By: #### C BC #### [facility] [address] [place] [address] Dr. Brayden Ellington NEUT # 4.1 103/ul Normal 1.4-6.5 [facility] Comment on above: Performed By: #### C BC #### [facility] [address] [address] [address] Brayden Ellington Neutrophils/100 WBC (Bld) 71.2 % Normal 43.0-75.0 [facility] Comment on above: Performed By: #### C BC #### [facility] [address] [address] [address] Brayden Ellington Platelet mean volume (Bld) [Entitic vol] 11.1 fL Normal 9.5-13.5 [facility] Comment on above: Performed By: #### C BC #### [facility] [address] [place] [address] Dr. Brayden Ellington PLT 246 103/ul Normal 150-450 [facility] Comment on above: Performed By: #### C BC #### [facility] [address] [address] [address] Brayden Ellington RBC 5.03 106/ul Normal 4.70-6.10 [facility] Comment on above: Performed By: #### C BC #### [facility] [address] [address] [address] Brayden Ellington WBC 5.7 103/ul Normal 4.0-11.0 [facility] Comment on above: Performed By: #### C BC #### [facility] [address] [address] [address] Brayden Ellington GLYCOHEMOGLOBIN A1Con 2021 ADA RECOMMENDATION ADA THERAPEUTIC TARGET 6.0 - 7.0 ACTION SUGGESTED > 7.0 Normal [facility] Comment on above: Performed By: #### A 1C #### [facility] [address] [address] [address] Brayden Ellington Glucose [Mass/Vol] 335 mg/dL Normal [facility] Comment on above: Performed By: #### A 1C #### [facility] [address] [address] [address] Brayden Ellington HbA1c (Bld) [Mass fraction] 13.3 % Critically high <=6.0 [facility] Comment on above: Performed By: #### A 1C #### [facility] [address] [place] [address] Dr. Brayden Ellington LIPASEon 09-25-2021 Lipase [Catalytic activity/Vol] 171.0 U/L Normal 23.0-300.0 [facility] Comment on above: Performed By: #### L IPA, TSH, CMP #### [facility] [address] [place] [address] Dr. Brayden Ellington PROF 14(COMP METB)on 022 Albumin [Mass/Vol] 4.2 g/dL Normal 3.5-5.0 [facility] Comment on above: Performed By: #### L IPA, TSH, CMP #### [facility] [address] [place] [address] Dr. Brayden Ellington Albumin/Globulin [Mass ratio] 1.0 {ratio} Normal [facility] Comment on above: Performed By: #### L IPA, TSH, CMP #### [facility] [address] [place] [address] Dr. Brayden Ellington ALP [Catalytic activity/Vol] 92 U/L Normal 38-126 [facility] Comment on above: Performed By: #### L IPA, TSH, CMP #### [facility] [address] [place] [address] Dr. Brayden Ellington ALT [Catalytic activity/Vol] 22 U/L Normal 21-72 [facility] Comment on above: Performed By: #### L IPA, TSH, CMP #### [facility] [address] [place] [address] Dr. Brayden Ellington Anion gap [Moles/Vol] 19.7 mmol/L Normal [facility] Comment on above: Performed By: #### L IPA, TSH, CMP #### [facility] [address] [place] [address] Dr. Brayden Ellington AST [Catalytic activity/Vol] 12 U/L Critically low 17-59 [facility] Comment on above: Performed By: #### L IPA, TSH, CMP #### [facility] [address] [place] [address] Dr. Brayden Ellington Bilirubin [Mass/Vol] 0.5 mg/dL Normal 0.2-1.3 [facility] Comment on above: Performed By: #### L IPA, TSH, CMP #### [facility] [address] [address] [address] Brayden Ellington Calcium [Mass/Vol] 9.7 mg/dL Normal 8.4-10.2 [facility] Comment on above: Performed By: #### L IPA, TSH, CMP #### [facility] [address] [place] [address] Dr. Brayden Ellington Chloride [Moles/Vol] 93 mmol/L Critically low 98-107 [facility] Comment on above: Performed By: #### L IPA, TSH, CMP #### [facility] [address] [place] [address] Dr. Brayden Ellington CO2 [Moles/Vol] 21.7 mmol/L Critically low 22.0-30.0 [facility] Comment on above: Performed By: #### L IPA, TSH, CMP #### [facility] [address] [place] [address] Dr. Brayden Ellington Creatinine [Mass/Vol] 1.01 mg/dL Normal 0.66-1.25 [facility] Comment on above: Performed By: #### L IPA, TSH, CMP #### [facility] [address] [place] [address] Dr. Brayden Ellington EGFR-AF [place] ISLANDER >60 Normal >=60 [facility] Comment on above: Performed By: #### L IPA, TSH, CMP #### [facility] [address] [place] [address] Dr. Brayden Ellington EGFR-NON AF [place]LANDER >60 Normal >=60 [facility] Comment on above: Performed By: #### L IPA, TSH, CMP #### [facility] [address] [place] [address] Dr. Brayden Ellington Globulin (S) [Mass/Vol] 4.3 g/dL Normal [facility] Comment on above: Performed By: #### L IPA, TSH, CMP #### [facility] [address] [address] [address] Brayden Ellington Glucose [Mass/Vol] 404 mg/dL Critically high 74-106 [facility] Comment on above: Performed By: #### L IPA, TSH, CMP #### [facility] [address] [address] [address] Brayden Ellington Potassium [Moles/Vol] 4.4 mmol/L Normal 3.4-5.0 [facility] Comment on above: Performed By: #### L IPA, TSH, CMP #### [facility] [address] [address] [address] Brayden Ellington Protein [Mass/Vol] 8.5 g/dL Critically high 6.1-8.2 [facility] Comment on above: Performed By: #### L IPA, TSH, CMP #### [facility] [address] [place] [address] Dr. Brayden Ellington Sodium [Moles/Vol] 130 mmol/L Critically low 137-145 [facility] Comment on above: Performed By: #### L IPA, TSH, CMP #### [facility] [address] [address] [address] Brayden Ellington Urea nitrogen [Mass/Vol] 14.0 mg/dL Normal 9.0-20.0 [facility] Comment on above: Performed By: #### L IPA, TSH, CMP #### [facility] [address] [address] [address] Brayden Ellington Urea nitrogen/Creatinine [Mass ratio] 13.9 mg/mg Normal [facility] Comment on above: Performed By: #### L IPA, TSH, CMP #### [facility] [address] [address] [address] Brayden Ellington TSHon 09-25-2021 TSH 1.739 uIU/mL Normal 0.470-4.680 [facility] Comment on above: Performed By: #### L IPA, TSH, CMP #### [facility] [address] [address] [address] Brayden Ellington TSH RANGE SEE BELOW Normal [facility] Comment on above: Result Comment: <0.3 4 UIU/ml HYPERTHYROID 0.34-5.60 UIU/ml EUTHYROID >5.60 UIU/ml HYPOTHYROID Performed By: #### L IPA, TSH, CMP #### [facility] [address] [place] [address] Dr. Brayden Ellington NM PET CT SKULL-MID THIGH W AXUMIN- SUBSEQUENTon 06-23-[address] SKULL-MID THIGH W AXUMIN- SUBSEQUENT [facility] Department of Radiology [address] [place] [address] Patient Name: KATH MOLINA : 1955 Sex: M Age: Race: White Pt. Location: 29 Patient Status: D Ordered Date: 06/25/2019 5:00:00 AM Completed Date: 06/23/2019 01:00 PM Requesting Provider: EMEKA MENDEZ Attending Provider: EMEKA MENDEZ Report Copy To: Signs & Symptoms: C61 Malignant neoplasm of prostate I10 History: Maureen para no pc required cpt code 45259 [facility] 06/17 Comments: , Appointment Date: 06/25/2019 , Appointment Date: 06/25/2019 , , , Ordering Provider - Ghazal MENDEZ MD PHD , Exam: NM PET CT SKULL-MID THIGH W AXUMIN- SUBSEQUENT Addendum Begins A fluorine 18 FDG PET scan was performed at an outside institution on December 09, 2015. No PET avid right hilar or subcarinal mediastinal PET avid adenopathy was present on that study. Electronically signed by:Jodee Benavidez. Addendum Ends NM PET CT SKULL-MID THIGH W AXUMIN- SUBSEQUENT 06/23/2019 1:00 PM EST SIGNS AND SYMPTOMS: C61 Malignant neoplasm of prostate I10 TECHNOLOGIST COMMENTS: AXUMIN, RS, pt dx with prostate ca 08/2014 s/p prostatectomy, Lupron injections, rad tx 03/2016, h/o smoking, prior PET/CT (FDG) 2016 in [place]. QUESTION FOR THE RADIOLOGIST: , Appointment Date: 06/25/2019 , Appointment Date: 06/25/2019 , , , Ordering Provider - Ghazal MENDEZ MD PHD , PROTOCOL: The patient was injected intravenously with 9.700 millicuries of F-18 FLUCICLOVINE- AXUMIN, PET scan and CT data was acquired from skull base to mid thigh. Images were reconstructed in orthogonal projections. Multiplanar reformats were utilized. Attenuation corrected images were constructed using CT data. Fused images were reviewed. RADIOPHARMACEUTICAL: F-18 FLUCICLOVINE- AXUMIN, 9.700 Millicuries, Intravenous COMPARISON: None. FINDINGS: Physiologic activity is noted in the liver and pancreas. Some excreted activity is noted in the right renal pelvis and dependently in the bladder. There is a lymph node in the subcarinal portion of the mediastinum with axumin activity greater than that of muscle. There is a lymph node in the right pulmonary hilum with activity equal to muscle. Low position of the urinary bladder in addition to the symphysis pubis consistent with prostatectomy. Decreased activity in the sacral bone marrow compared to the thoracolumbar consistent with radiation change. IMPRESSION: Lymph nodes in the subcarinal portion of the mediastinum and in the right coronary hilum with activity able to or greater than that of muscle, suspicious for metastasis. Electronically signed by:Jodee Benavidez. Transcribed by: [email or web address], User Resident: Electronically Signed by: JODEE BENAVIDEZ @ 06/24/2019 10:25 AM Normal [facility] Comment on above: Order Comment: , Kike ointment Date: 06/25/2019 , Appointment Date: 06/25/2019 , , , Ordering Provider - Ghazal MENDEZ MD PHD , Cardiovascular Lab Reporton 05-06-2019 Cardiovascular Lab Report [facility] Patient Name: Kath Molina [facility] MR #: [id number] Physician: Daniel Shea of [facility] Kelly Medicine Service Date: 05/05/2019 Division of Birthdate: 1955 Cardiology Room #: Adult Cardiovascular Services [place] [id number] Cardiovascular Laboratory Report INDICATION: The patient is a 63-year-old man, who was evaluated in Cardiology Clinic by Dr. Magdy Nicole because of symptoms of chest pain and a stress test that showed inferolateral ischemia. He was referred for cardiac catheterization. PROCEDURE: Bilateral selective coronary angiography from the right radial access. METHODS: Procedure was explained to the patient with risks and benefits. He signed informed consent. He was brought to labor service representative in a fasting state. The right wrist area was prepped and draped in usual fashion. Modified Augustin's test was favorable. Access in the right radial artery was obtained using micropuncture technique. A 6-Icelandic x 11 cm Hydrophilic sheath was advanced. Verapamil was given through the sheath and heparin was administered intravenously. Bilateral selective coronary angiography was then performed using 6-Icelandic JL3.5 and JR4 diagnostic catheters. Catheters were removed. Procedure was concluded. A TR band was used to achieve hemostasis in the right radial artery. He tolerated the procedure well. He will be observed in the cardiovascular recovery area for 2-3 hours and then discharged to home. TOTAL FLUORO TIME: 3.55 minutes. TOTAL AIR KERMA: 687 mGy. TOTAL CONTRAST VOLUME: 30 mL. HEMODYNAMICS: AO 133/70, mean 90. CORONARY ANGIOGRAPHY: This is a right dominant circulation. Left main arises from the left aortic cusp. It bifurcates into left anterior descending and circumflex vessels. Left main is angiographically normal. Left anterior descending: This is a large vessel with minimal luminal irregularities. Circumflex vessel: This is a large vessel, it is free of disease. Right coronary artery: This arises from the right coronary cusp. It is a large and dominant vessel. It has minimal luminal irregularities. FINDINGS: Near normal coronary angiogram. RECOMMENDATIONS: 1. Risk factor control. 2. Follow up in Cardiology Clinic with Dr. Magdy Nicole. Electronically Signed by: Daniel Kelly M.D. 05/24/2019 05:47 P Daniel Kelly M.D. Date Dict: 05/05/2019/10:40 A/Daniel Kelly M.D. Date Trans: 05/06/2019 08:55 A/mmo [id number] Normal [facility] Coding Summary.on 09-09-2017 Coding Summary. 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 However, the narrative phrase printed from the coding software may appear abbreviated, or result in slightly different terminology. Coded By: Marichuy Chávez Date Saved: 09/09/2017 02:58 pm Normal [facility] Main OR Intraoperative Recor don 09-05-2017 Main OR Intraoperative Record IntraOp Document Type FTURO Summary Primary Physician: Juan Boyle Jr., MD Finalized Date/Time: 09/05/17 14:15:06 Pt. Name: KATH MOLINA D.O.B./Sex: 1955 Male Med Rec #: [id number] Physician: Wei Massey MD Financial #: [id number] Pt. Type: O Room/Bed: / Admit/Disch: 09/05/17 12:31:41 - Institution: Case Times FTURO Entry 1 Patient Times In Room 09/05/17 13:53:00 Out Room 09/05/17 14:19:00 Procedure Times Start 09/05/17 14:11:00 Stop 09/05/17 14:15:00 Anesthesia Times Last Modified By: STACIA Montilla RN, Ruthann 09/05/17 14:14:44 Case Attendance FTURO Entry 1 Entry 2 Entry 3 Case Attendee Roldan BIRCH, ROMINAOR, Eliane WINKLER, Reanna Boyle Jr., MD, Juan Lau Role Performed Back Sewer - Primary Scrub - Primary Surgeon - Primary Time In 09/05/17 13:53:00 09/05/17 13:53:00 09/05/17 13:53:00 Time Out 09/05/17 14:19:00 09/05/17 14:19:00 09/05/17 14:19:00 Procedure CYSTOSCOPY LOCAL(.) CYSTOSCOPY LOCAL(.) CYSTOSCOPY LOCAL(.) Comments Last Modified By: ROMINA Montilla RNOR, STACIA Montilla RN, STACIA Montilla RN, Ruthann 09/05/17 Judi 09/05/17 Judi 09/05/17 14:14:52 14:14:52 14:14:52 Surgical Procedures FTURO Entry 1 Procedure Description Procedure CYSTOSCOPY LOCAL Modifiers . Surgeon Description CYSTO Primary Procedure Yes Primary Surgeon Wei Massey MD Start 09/05/17 14:11:00 Stop 09/05/17 14:15:00 Anesthesia Type Local Surgical Service Urology Wound Class 2 - Clean-Contaminated Last Modified By: STACIA Montilla RN, Ruthann 09/05/17 14:14:50 General Case Data FTURO Pre-Care Text: Classifies surgical wound, implements aseptic technique, initiates traffic control Entry 1 Case Information OR URO 1 FT Case Level None Wound Class 2 - Clean-Contaminated Specialty Urology Preop Diagnosis GROSS HEMATURIA, Postop Same As Preop No DYSURIA, PROSTATE CANCER Postop Diagnosis CLEAR BLADDER Outcomes Met? Yes Last Modified By: STACIA Montilla RN, Ruthann 09/05/17 12:43:56 Post-Care Text: The patient is free from signs and symptoms of infection EU IntraOp - FTURO Pre-Care Text: Implements protective measures prior to operative or invasive procedure, confirms identity before the operative or invasive procedure, verifies operative procedure, surgical site, and laterality Entry 1 EU Perioperative Protocols Procedure(s) CYSTOSCOPY LOCAL(.) Patient Identity Birthday, ID Band Verified (select at Check, Patient least 2): Participation Consents / H and P HandP, Surgery/Procedure Operative Site N/A Verified Consent Marking Verified Surgical Site Yes Laterality Verified n/a Verified Procedure Verified Yes Correct Patient Yes Position Verified Availability Equipment, Medication Time Out STACIA Montilla RN, Verified (If Participants Montana Lau Jr., MD, Applicable) Eliane Barreto [employer] HRMS DEVELOPER, Reanna R Time Out Complete 09/05/17 13:54:00 Allergies Reviewed? Yes Allergies Reviewed Self/Patient With Body Position Supine Prep Area PENIS Prep Agents Betadine Solution Skin. Condition Unable to Visualize Additional None Specimens Collected Vitals - EU Blood Pressure 131/84 Pulse 80 bpm Respirations SPO2 EBL 0 IandO - EU Total Intake 0 mL Total Output 0 mL Outcomes Met? Yes Last Modified By: STACIA Montilla RN, Ruthann 09/05/17 13:54:56 Post-Care Text: The patient is free from signs and symptoms of injury caused by extraneous objects Case Comments Finalized By: STACIA Montilla RN, Ruthann Document Signatures Signed By: STACIA Montilla RN, Ruthann 09/05/17 14:15 Normal [facility] Main OR Preoperative Recordo n 09-05-2017 Main OR Preoperative Record Holding Area Document Type FTURO Summary Primary Physician: Wei Massey MD Finalized Date/Time: 09/05/17 13:54:26 Pt. Name: KATH MOLINA/Sex: 1955 Male Med Rec #: [id number] Physician: eWi Massey MD Financial #: [id number] Pt. Type: O Room/Bed: / Admit/Disch: 09/05/17 12:31:41 - Institution: Case Times Holding FTURO Pre-Care Text: Verifies consent for planned procedure, identifies individual values and wishes concerning care, includes family members in perioperative teaching Secures patient's records' belongings, and valuables, maintains patient's dignity and privacy, and maintains patient confidentiality Entry 1 In Holding 09/05/17 13:25:00 Outcomes Met? Yes Last Modified By: Suzanne Maurer 09/05/17 13:26:03 Post-Care Text: The patient participates in decisions affecting his or her perioperative plan of care The patient's right to privacy is maintained Surgery Checklist FTURO Entry 1 Patient Birthday, ID Band Procedure History and Physical, Identification: Check, Patient Verification: Surgical Consent, With Participation Patient NPO after Midnight: n/a Date/Time: 09/05/17 13:26:00 Personal Items: Glasses, Pacemaker Limitations: none Complaints of Pain: No Pain Comment: PT DENIES ANY PAIN Skin Integrity Intact, [place], Warm, & Dry Vitals - EU Blood Pressure 131/85 Pulse 81 bpm Respirations 16 br/min SPO2 Additional None RN Reviewed Yes Specimens Collected Last Modified By: STACIA Montilla RN, Ruthann 09/05/17 13:54:24 Finalized By: STACIA Montilla RN, Ruthann Document Signatures Signed By: Suzanne Maurer 09/05/17 13:28 STACIA Montilla RN, Ruthann 09/05/17 13:54 Normal [facility] Vital Signs Date Time Vital Sign Value Performing Clinician Faci lity 10-17-2023 14:13-0400 Body height 185.4 cm Madisyn Genao MD Work Phone: [facility] [employer] [facility] 10-17-2023 14:13-0400 Body mass index (BMI) [Ratio] 28.21 kg/m2 Madisyn Genao MD Work Phone: [facility] [employer] [facility] 10-17-2023 14:13-0400 Body temperature 98.1 [degF] Madisyn Genao MD Work Phone: [facility] [employer] [facility] 10-17-2023 14:13-0400 Body weight 96.98 kg Madisyn Genao MD [facility] 10-17-2023 14:13-0400 Diastolic blood pressure 71 mm[Hg] Madisyn Genao MD Work Phone: [facility] [employer] [facility] 10-17-2023 14:13-0400 Heart rate 81 /min Madisyn Genao MD Work Phone: [facility] 10-17-2023 14:13-0400 Respiratory rate 16 /min Madisyn Genao MD Work Phone: [facility] 10-17-2023 14:13-0400 SaO2% (BldA) [Mass fraction] 100 % Madisyn Genao MD Work Phone: [facility] 10-17-2023 14:13-0400 Systolic blood pressure 120 mm[Hg] Madisyn Genao MD Work Phone: [facility] 09-03-2023 10:12-0500 Body height 182.9 cm Miguelina Richard PUBLIC RELATIONS ACCOUNT EXECUTIVE Work Phone: [facility] 09-03-2023 10:12-0500 Body mass index (BMI) [Ratio] 30.52 kg/m2 Miguelina Richard PUBLIC RELATIONS ACCOUNT EXECUTIVE Work Phone: [facility] 09-03-2023 10:12-0500 Body weight 102.06 kg Miguelina Richard PUBLIC RELATIONS ACCOUNT EXECUTIVE Work Phone: [facility] 09-03-2023 10:12-0500 Diastolic blood pressure 60 mm[Hg] Miguelina Richard PUBLIC RELATIONS ACCOUNT EXECUTIVE Work Phone: [facility] 09-03-2023 10:12-0500 Heart rate 76 /min Miguelina Richard PUBLIC RELATIONS ACCOUNT EXECUTIVE Work Phone: [facility] 09-03-2023 10:12-0500 Respiratory rate 16 /min Miguelina Richard PUBLIC RELATIONS ACCOUNT EXECUTIVE Work Phone: [facility] 09-03-2023 10:12-0500 Systolic blood pressure 102 mm[Hg] Miguelina Richard PUBLIC RELATIONS ACCOUNT EXECUTIVE Work Phone: [facility] 06-15-2022 06:04-0500 Respiratory rate 19 /min Joel Cody MD [facility] 06-15-2022 06:00-0500 Diastolic blood pressure 79 mm[Hg] Joel Cody MD [facility] 06-15-2022 06:00-0500 SaO2% (BldA) [Mass fraction] 95 % Joel Cody MD [facility] 06-15-2022 06:00-0500 Systolic blood pressure 129 mm[Hg] Joel Cody MD [facility] 06-15-2022 02:12-0500 Body height 188 cm Joel Cody MD [facility] 06-15-2022 02:12-0500 Body mass index (BMI) [Ratio] 29.53 kg/m2 Joel Cody MD [facility] 06-15-2022 02:12-0500 Body temperature 98.1 [degF] [facility] 06-15-2022 02:12-0500 Body weight 104.33 kg Joel Cody MD [facility] 06-15-2022 02:12-0500 Heart rate 75 /min Joel Cody MD [facility] Encounters Encounter Date Encounter Type Care Provider Facility Start: 04-16-2024 End: 04-16-2024 ambulatory [facility] Start: 04-15-2024 End: 04-15-2024 ambulatory [facility] Start: 03-31-2024 End: 03-31-2024 ambulatory CURTIS MARTINEZ [facility] Start: 03-11-2024 End: 03-11-2024 ambulatory MIGUELINA RICHARD Not Available Start: 03-06-2024 End: 03-06-2024 ambulatory RAYNA RUTLEDGE [facility] Start: 03-05-2024 End: 03-05-2024 ambulatory [facility] Start: 02-27-2024 End: 02-27-2024 Evaluation and management of inpatient YAMINI EASTON [facility] Start: 02-26-2024 End: 02-27-2024 Evaluation and management of inpatient [facility] Start: 02-26-2024 End: 02-26-2024 Evaluation and management of inpatient [facility] Start: 02-04-2024 End: 02-05-2024 Emergency department patient visit BRETT WILSON [facility] Start: 02-04-2024 End: 02-04-2024 Emergency department patient visit MIGUELINA RICHARD [facility] Start: 12-10-2023 End: 12-10-2023 ambulatory MIGUELINA RICHARD Not Available Start: 10-17-2023 End: 10-17-2023 Office outpatient visit 25 minutes Madisyn Genao MD Work Phone: Ana Clark [facility] Comment on above: Primary malignant ne oplasm of prostate (CMS-HCC) (Primary Dx) Start: 10-17-2023 End: 10-17-2023 Orders Only Eliza Clark [facility] Comment on above: Primary malignant ne oplasm of prostate (CMS-HCC) (Primary Dx) Start: 2023 End: 2023 ambulatory MADISYN GENAO [facility] Start: 10-01-2023 End: 10-01-2023 ambulatory CURTIS [facility] Start: 09-25-2023 End: 09-25-2023 ambulatory CASTRO [facility] Start: 09-03-2023 End: 09-03-2023 Patient encounter procedure Miguelina Richard PUBLIC RELATIONS ACCOUNT EXECUTIVE Work Phone: [facility] Comment on above: Type 2 diabetes camille itus without complication, without long- term current use of insulin (CMS/HCC) (Primary Dx); Mixed hyperlipidemia (CMS/HCC); Encounter for wellness examination; Screening for prostate cancer; Type 2 diabetes mellitus with diabetic polyneuropathy, without long-term current use of insulin (CMS/HCC); Malignant neoplasm of prostate (C61); 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); Sick sinus syndrome (I49.5); Neuropathy; Aortic valve disorder; Palpitations; Sinus node dysfunction (CMS/HCC); Carcinoma in situ of prostate; Primary malignant neoplasm of prostate (CMS/HCC); Cervical spondylosis without myelopathy; Hallux valgus (acquired), left foot; Arthritis; History of prostatectomy; Colon cancer screening declined; Advanced directives, counseling/discussion Start: 09-03-2023 End: 09-03-2023 Patient encounter status Miguelian Richard PUBLIC RELATIONS ACCOUNT EXECUTIVE Work Phone: [facility] Start: 09-03-2023 End: 09-03-2023 ambulatory MIGUELINA RICHARD Not Available Start: 08-13-2023 End: 08-13-2023 ambulatory MIGUELINA RICHARD Not Available Start: 04-23-2023 End: 04-23-2023 ambulatory CURTIS MARTINEZ [facility] Start: 06-15-2022 End: 06-15-2022 Evaluation and management of inpatient GERONIMO ROBERT [facility] Start: 06-15-2022 End: 06-15-2022 Evaluation and management of inpatient Joel Cody MD [facility] ED Comment on above: Dog bite, initial en counter (Primary Dx); Dog bite of eye region, left, initial encounter Start: 05-23-2022 End: 05-24-2022 ambulatory KARTHIK ANAYA Facility:[facility] Start: 09-27-2021 Encounter for genera l adult medical examination without abnormal findings DR GERONIMO ROBERT [facility] Start: 09-25-2021 End: 09-26-[address] GERONIMO ROBERT Facility:[facility] Start: 09-25-2021 End: 09-26-2021 Encounter for general adult medical examination without abnormal findings DR GERONIMO ROBERT Facility:[facility] Start: 08-07-2021 End: 08-07-[address] MARYANN NORMAN Facility:[facility] Start: 05-05-2019 End: 05-06-2019 Patient encounter procedure PROVIDER UNKNOWN Facility:[facility] Start: 09-05-2017 End: 09-06-2017 Ambulatory [id number] WALT ROBERT Facility[place] Procedures Date Procedure Procedure Detail Performing Clinician Start: 10-17-2023 Follow-up visit Follow-up MADISYN GENAO Start: 09-03-2023 Complete blood count with white cell differential, automated Miguelina Richard PUBLIC RELATIONS ACCOUNT EXECUTIVE Work Phone: Start: 09-03-2023 Comprehensive metabolic panel Miguelina Richard PUBLIC RELATIONS ACCOUNT EXECUTIVE Work Phone: Start: 01-30-2024 Lipid panel Miguelina celestin PUBLIC RELATIONS ACCOUNT EXECUTIVE Work Phone: Start: 02-11-2023 H/O: surgery History of prostatectomy Miguelina montiel PUBLIC RELATIONS ACCOUNT EXECUTIVE Work Phone: Start: 06-15-2022 BASIC METABOLIC PANEL W/ REFLEX TO MG FOR LOW K Marilee Goodson DO Work Phone: Start: 06-15-2022 Speech and language therapy regime Marilee Goodson DO Work Phone: Start: 06-15-2022 Ct maxillofacial w/o contrast material Juliette Celeste MD Work Phone: Start: 06-15-2022 Basic metabolic panel calcium total Juliette Celeste MD Work Phone: Start: 10-12-2021 Adult depression screening assessment Eliza Carter RN H/O: surgery History of prostatectomy Blaine Richard PUBLIC RELATIONS ACCOUNT EXECUTIVE Work Phone: Plan of Treatment Date Care Activity Detail Author Start: 06-15-2032 DTaP,Tdap and Td Vaccines (4 - Td or Tdap) DTaP,Tdap and Td Vaccines (4 - Td or Tdap) [facility] [employer] [facility] Start: 06-15-2032 DTaP/Tdap/Td vaccine (4 - Td or Tdap) DTaP/Tdap/Td vaccine (4 - Td or Tdap) [facility] Start: 06-18-2025 Glaucoma screening Diabetes: R etinopathy Screening [facility] Start: 10-16-2024 Adult BMI Screening Adult BMI Screen ing [facility] Start: 09-03-2024 Medicare Annual Well ness (AWV) Medicare Annual Wellness (AWV) [facility] Start: 09-03-2024 Pneumococcal Vaccine : 65+ Years (1 - PCV) Pneumococcal Vaccine: 65+ Years (1 - PCV) [facility] Comment on above: Postponed from 10/10 (Patient Refused) Start: 04-16-2024 End: 04-16-2024 Patient encounter procedure 04/16/2024 2:15 PM EDT Office Visit [facility] [place] [id number] Madisyn Genao MD [address] [place] [address] Ana Clark [facility] Start: 02-02-2024 Influenza vaccination Influenza Vacc ine (#1) [facility] Comment on above: Postponed from 04/05 (Patient Refused) Start: 12-03-2023 Hemoglobin A1c measurement Diabetes: Hemoglobin A1C [facility] Start: 12-03-2023 End: 12-03-2023 Patient encounter procedure 12/03/2023 10:00 AM EDT Office Visit [facility] [address] [place] [address] Miguelina Richard NP [address] [place] [address] [facility] Start: 09-03-2023 End: 09-03-2024 Microalbumin/Creatinine panel in random Urine Microalbumin / creatinine, urine ratio Lab Routine Type 2 diabetes mellitus without complication, without long-term current use of insulin ([facility]) Encounter for wellness examination Expected: 09/03/2023 (Approximate), Expires: 09/03/2024 [facility] Work Phone: Comment on above: Expected: 09/03/2023 (Approximate), Expires: 09/03/2024 Start: 06-14-2023 Tobacco Screening Tobacco Screening [facility] Start: 04-05-2023 Influenza vaccination Influenza Vacc ine [facility] Start: 10-12-2022 Depression Screening Depression Scre ening [facility] Start: 03-05-2022 Influenza vaccination Flu vaccine (# 1) [facility] Start: 2018 Fall Risk Screening Fall Risk Screen ing [facility] Start: 2018 Pneumococcal 65+ yea rs Vaccine (1 - PCV) Pneumococcal 65+ years Vaccine (1 - PCV) [facility] Start: 10-11-2003 Shingles vaccine (1 of 2) Shingles vaccine (1 of 2) [facility] Start: 1998 Screening for malign ant neoplasm of colon [facility] Start: 1993 Lipid panel [facility]ids [facility] Start: 1988 Diabetes screen Diabetes screen [facility] Start: 1972 Administration of varicella zoster vaccine Zoster (Shingles) Vaccine (1 of 2) [facility] Start: 1972 Urine screening for protein Diabetes: Urine Protein Screening [facility] Start: 10-11-1971 Adult BMI Follow Up Plan Adult BMI Follow Up Plan [facility] Start: 10-11-1971 Hepatitis C screening Hepatitis C sc reen [facility] Start: 1965 Depression Screen Depression Screen [facility] Start: 04-12-1954 COVID-19 Vaccine (#1) COVID-19 Vacci ne (#1) [facility] Start: 1955 Screening for malign ant neoplasm of colon [facility] End: 10-16-2032 CBC W Auto Differential panel - Blood CBC auto differential Lab Routine Primary malignant neoplasm of prostate (CMS-HCC) every 3 months for 4 Occurrences starting 10/17/2023 until 10/16/2032 Cycle Phone: Comment on above: every 3 months for 4 Occurrences starting 10/17/2023 until 10/16/2032 End: 10-16-2024 Comprehensive metabolic 2000 panel - Serum or Plasma Comprehensive metabolic panel Lab Routine Primary malignant neoplasm of prostate (CMS-HCC) every 3 months for 4 Occurrences starting 10/17/2023 until 10/16/2024 Cycle Phone: Comment on above: every 3 months for 4 Occurrences starting 10/17/2023 until 10/16/2024 Continuous pulse oximetry Pulse oximetry, continuous Respiratory Care Routine Every 4hr until discontinued starting [facility]15[facility]2022 [facility] Comment on above: Every 4hr until disc ontinued starting 06/15/2022 Oxygen therapy [[facility] Data Set] Initiate Oxygen Therapy Protocol Respiratory Care Routine As Needed until discontinued starting 06/15/2022 [facility] Phone: Comment on above: As Needed until disc ontinued starting 06/15/2022 End: 10-16-2024 Prostatic specific antigen, diagnostic Prostatic specific antigen, diagnostic Lab Routine Primary malignant neoplasm of prostate ([facility]-HCC) every 3 months for 4 Occurrences starting 10/17/2023 until 10/16/2024 [facility] Comment on above: every 3 months for 4 Occurrences starting 10/17/2023 until 10/16/2024 End: 10-16-2024 Testosterone [Mass/volume] in Serum or Plasma Testosterone Lab Routine Primary malignant neoplasm of prostate ([facility]-H[facility]) 1 Occurrences starting 10/17/2023 until 10/16/2024 [facility] Comment on above: 1 Occurrences starti ng 10/17/2023 until 10/16/2024 Immunizations Immunization Date Immunization Notes Care Provider Jeramie mohan 06-15-2022 tetanus toxoid, reduced diphtheria toxoid, and acellular pertussis vaccine, adsorbed Miguelina Richard PUBLIC RELATIONS ACCOUNT EXECUTIVE Work Phone: [facility] 03-01-2020 tetanus toxoid, reduced diphtheria toxoid, and acellular pertussis vaccine, adsorbed Miguelina Richard PUBLIC RELATIONS ACCOUNT EXECUTIVE Work Phone: [facility] 11-04-2015 tetanus toxoid, reduced diphtheria toxoid, and acellular pertussis vaccine, adsorbed Miguelina Richard PUBLIC RELATIONS ACCOUNT EXECUTIVE Work Phone: [facility] NEGATED: Highlighted row has not occurred!06-14-2022 Human Rabies vaccine from human diploid cell culture Eliza Carter RN [facility] Comment on above: Deferred: Other NEGATED: Highlighted row has not occurred!06-14-2022 rabies immune globulin Eliza Carter RN [facility] Payers Date Payer Category Payer Unknown [id number] 2022 Unknown [id number] 2020 Worker's Compensation WORKER'S C OMPENSATION WORKER'S [id number] ONLY [id number] 2020-Present [id number] [id number] 2017 Unknown [id number] 1959 Medicare [id number] 1959 Unknown [id number] 1959 Unknown [id number] 1953 Unknown [id number] 2.16.840.1.387558.3.579.2. 647 1953 Unknown [id number] 2.16.840.1.290890.3.579.2. 593 1953 Unknown [id number] 2.16.840.1.519574.3.579.2. 593 1953 Unknown [id number] 2.16.840.1.935152.3.579.2. 593 1953 Unknown [id number] 2.16.840.1.329708.3.579.2. 175 1953 Unknown [id number] 2.16.840.1.241090.3.579.2. 1259 1953 Unknown [id number] 2.16.840.1.434920.3.579.2. 1259 1953 Unknown [id number] 2.16.840.1.198401.3.579.2. 1259 1953 Unknown [id number] 2.16.840.1.880881.3.579.2. 1259 1953 Unknown [id number] 2.16.840.1.228572.3.579.2. 1286 1953 Unknown [id number] 2.16.840.1.756064.3.579.2. 1286 1953 Unknown [id number] 2.16.840.1.403025.3.579.2. 1286 1953 Unknown [id number] 2.16.840.1.311970.3.579.2. 1286 1953 Unknown [id number] 2.16.840.1.759925.3.579.2. 128 1953 Unknown [id number] 2.16.840.1.847360.3.579.2. 1285 1953 Unknown [id number] 2.16.840.1.319700.3.579.2. 128 1953 Unknown [id number] 2.16.840.1.820394.3.579.2. 128 1953 Unknown [id number] 2.16.840.1.317787.3.579.2. 1285 1953 Unknown [id number] 2.16.840.1.365183.3.579.2. 1285 1953 Unknown [id number] 2.16.840.1.830495.3.579.2. 1285 1953 Unknown [id number] 2.16.840.1.190357.3.579.2. 1285 1953 Unknown [id number] 2.16.840.1.222826.3.579.2. 1286 Social History Date Type Detail Facility Tobacco smoking stat [facility] Tobacco smoking consumption unknown [facility] Phone: Start: 1955 Sex Assigned At Not on file [facility] Phone: Start: 06-05-2022 End: 06-15-2022 Exposure to SARS-CoV-2 (event) Not sure [facility] Phone: Start: 10-31-2016 End: 01-24-2023 Tobacco smoking status NHIS Ex-smoker [facility] History of tobacco use Current smoker [facility] History of tobacco use Cigarette Smoker [facility] Start: 01-24-2023 Tobacco use and exposure Smokeless tobacco non-user [facility] Start: 09-03-2023 Alcohol intake Ex-drinker (finding) [facility] Start: 10-12-2021 End: 02-11-2023 History of Social function [facility] Start: 10-12-2021 End: 02-11-2023 Humiliation, Afraid, Rape, and Kick questionnaire [HARK] [facility] Within the last year , have you been afraid of your partner or ex-partner? No [facility] Do you belong to any clubs or organizations such as synagogue groups, unions, fraternal or athletic groups, or school groups? Yes [facility] Are you now , , , , never or living with a partner? [facility] How often to you hav e a drink containing alcohol? Never [facility] How many standard dr inks containing alcohol do you have on a typical day? Patient does not drink [facility] How hard is it for y ou to pay for the very basics like food, housing, medical care, and heating Somewhat hard [facility] Do you feel stress - tense, restless, nervous, or anxious, or unable to sleep at night because your mind is troubled all the time - these days [OSQ] To some extent [facility] (I/We) worried wheevaristo er (my/our) food would run out before (I/we) got money to buy more. Sometimes true [facility] The food that (I/we) bought just didn't last, and (I/we) didn't have money to get more. Never true [facility] Start: 02-07-2023 Alcohol Comment caffeine: 2-3 cups/day [facility] Start: 1955 Sex Assigned At Male [facility] Start: 06-01-2019 Gender identity Identifies as male gender (finding) [facility] Start: 06-01-2019 Sexual orientation Heterosexual (finding) [facility] Start: 10-31-2016 Tobacco use and exposure Former smokeless tobacco user [facility] History of tobacco use Chews Tobacco [facility] Start: 06-14-2022 Alcohol intake Current drinker of alcohol (finding) [facility] Start: 10-12-2021 Education 21 [facility] Medical Equipment Procedure Code Equipment Code Equipment Origin al Text Equipment Identifier Dates fluorescein ophthalmic strip 1 mg [id number] Start: 06-15-2022 End: 06-15-2022 Lancets misc [id number] USE 1 STRIP TWIC E DAILY [id number] Start: 02-18-2023 Clinical Notes 06-15-2022 to 03-06-2024 Eliza Carter RN - 10/17/2023 2:44 PM EDFrance Genao MD - 10/17/2023 2:15 PM EDTPatient InstructionsChristy Dimple Richard, ODALYS - 09/03/2023 10:00 AM ESTDavid Munoz - 06/15/2022 3:35 AM EST Note Date & Type Note Facility 03-06-2024 Note HTN well controlled Continue ASA and will increase lipitor to 40 mg daily Will monitor with routine Echocardiogram- currently at high end of normal diameter [facility] 03-06-2024 Note Mild AI Stable without any concerning symptoms today D/W pt to call office for SOB, leg swelling/water retention, increased fatigue, or any other concerns Will monitor with routine Echocardiogram [facility] 03-06-2024 Note Patient here for 6 m o follow up SND s/p PPM, PAF, and aortic dilatation. Had echo in October 2023. He hasn't been taking aspirin for about 1 month due to lots of GI testing he's been having. Denies chest pain and lightheadedness/syncope. Says his SOB and palpitations are no more than usual for him. Scheduled for routine device interrogation in a few more weeks. Review of Systems Cardiovascular: Positive for dyspnea on exertion. Respiratory: Positive for shortness of breath and wheezing. Musculoskeletal: Positive for arthritis, back pain and joint pain. Neurological: Positive for headaches. All other systems reviewed and are negative. [facility] 03-06-2024 Note UTP CARDIOLOGY PROGR ESS NOTE HPI: Kath Molina is a 68 y.o. male here for routine F/U HPI 68 year old with past medical history of prostate CA, SSS s/p PPM DC [address] neil, chest pain, cath 2019 showing near normal cors he is here for 6-month follow-up Patient here for 6 mo follow up SND s/p PPM, PAF, and aortic dilatation. Had echo in October 2023. He hasn't been taking aspirin for about 1 month due to lots of GI testing he's been having. Denies chest pain and lightheadedness/syncope. Says his SOB and palpitations are no more than usual for him. Scheduled for routine device interrogation in a few more weeks. Review of Systems Cardiovascular: Positive for dyspnea on exertion. Respiratory: Positive for shortness of breath and wheezing. Musculoskeletal: Positive for arthritis, back pain and joint pain. Neurological: Positive for headaches. All other systems reviewed and are negative Previous HPI per Sintia Stone NP Device check 04/23/2023 shows stable function/thresholds 03/2022 shoed normal device function, stable thresholds, no AF seen since 08/2021. RAp 93%, RVp 0% METS>6 He denies CP, sob, jain, le edema 03/[address] Martinez cc; Afib HPI: November 06, 2021 device check reveals 90% atrial pacing and 1% RV pacing with no A. fib. He is doing well. H ehad nocturnal pulse oxy and was +. Adv sleep referral Prior HPI: 65-year-old man with a past medical history of sinus node dysfunction s/p dual-chamber pacemaker, that was performed by Dr. Neil on 03/16/2016, prostate cancer diagnosed in 2016 s/p prostatectomy with recurrence in 2016 that led to chemo therapy and radiation. He is continue with chemotherapy at the moment. He had been following up with Dr. Nicole in the past. He has had prior episodes of chest pain and has had undergone cardiac cath which has so far does not reveal any significant CAD. Today he had presented to the device clinic for evaluation and was noted to have atrial fibrillation that was noted to last at least for an hour and 5 minutes. Patient has been doing well and was recently [facility] with [facility] along with his . He states that this had affected him but now he feels like he is slowly getting better. He used to walk his dog which would be approximately 3 miles up until last June. Personal history: Sick sinus syndrome s/p pacemaker, prostate cancer s/p prostatectomy, recent admission with Covid pneumonia Personal history and lives with his Denied tobacco abuse Visit Vitals BP 101/69 (BP Location: Left arm, Patient Position: Sitting) Pulse 76 Ht 1.88 m (6' 2 ) Wt 95.3 kg (210 lb) SpO2 97% BMI 26.96 kg/m??? BSA 2.23 m??? Allergies Allergen Reactions Acyclovir Medications: Current Outpatient Medications on File Prior to Visit Medication Sig Dispense Refill apalutamide (Erleada) 60 mg tablet Take by mouth. aspirin 81 mg chewable tablet Chew 1 tablet every day by oral route. cyanocobalamin (Vitamin B-12) 100 mcg tablet Take 100 mcg by mouth in the morning. dapagliflozin propanediol (Farxiga) 5 mg Take 10 mg by mouth in the morning. famotidine (Pepcid) 20 mg tablet Take 20 mg by mouth. metFORMIN (Glucophage) 500 mg tablet Take 500 mg by mouth twice a day. zinc gluconate 10 mg lozenge Dissolve in the mouth. [DISCONTINUED] atorvastatin (Lipitor) 10 mg tablet Take 20 mg by mouth at bedtime. fluticasone (Flonase) 50 mcg/actuation nasal spray 1-2 sprays in the morning. No current facility-administered medications on file prior to visit. Physical Exam: Constitutional: Appearance: Normal appearance. Without apparent distress HENT: Head: Normocephalic and atraumatic. Nose: Nose normal. Mouth/Throat: Mouth: Mucous membranes are moist. Eyes: Extraocular Movements: Extraocular movements intact. Conjunctiva/sclera: Conjunctivae normal. Neck: Vascular: No JVD. Cardiovascular: Rate and Rhythm: Normal rate and regular rhythm. Pulses: Dorsalis pedis pulses are 3 on the right side and 3on the left side. Posterior tibial pulses are 3 on the right side and 3 on the left side. Heart sounds: Normal heart sounds, S1 normal and S2 normal. Pulmonary: Effort: Pulmonary effort is normal. Breath sounds: Normal breath sounds. Abdominal: General: Bowel sounds are normal. Palpations: Abdomen is soft. Musculoskeletal: General: Normal range of motion. Cervical back: Normal range of motion. Right lower leg: No edema. Left lower leg: No edema. Skin: General: Skin is warm and dry. Capillary Refill: Capillary refill takes less than 2 seconds. Neurological: General: No focal deficit present. Mental Status: he is alert and oriented to person, place, and time. Psychiatric: Mood and Affect: Mood normal. Behavior: Behavior normal. Thought Content: Thought content normal. Judgment: Judgment normal. Labs: CBC normal, renal function normal, liver function normal, Lipids eleva (more content not included)... [facility] 03-06-2024 Note Lipid abnormalities are uncontrolled on lipitor 20 mg therefore will increase to 40 mg /day and pt prefers to take lipitor 20 mg twice a day in light of having GI side effects- diarrhea in the past. Lipids will be reassessed in 2-3 months with hepatic function [facility] 03-06-2024 Note Device interrogation q 6months [facility] 10-17-2023 History of Present illness Narrative Patient is here for follow up with Dr. Genao. Order received to Continue CBC CMP, PSA every 3 months. check testosterone level next time. F/u in 6 months. Patient given calendar, verbalized understanding of future appointments. documented in this encounter [facility] [employer] [facility] 10-17-2023 History of Present illness Narrative Images from the original note were not included. [facility] 10/17/23 Kath Molina is a 68 y.o. year old male History of Present Illness: Mr. Molina is a 68 y.o. male with history of bradycardia status post pacemaker placement. He was diagnosed with prostate cancer pT2cN0, GS 4+4=8 prostate cancer s/p prostatectomy and pelvic LN dissection on 08/18/14. Margins were negative. Post-op PSA was 0.1 09/19. Disease relapse with rising PSA to 0.42 08/20. MRI of the prostate bed/pelvis revealed a 1.2 cm focus of enhancing soft tissue in the expected location of the L seminal vesicle (either SV remnant from surgery or a local recurrence), and an enlarged abnormal 1.3 cm R internal iliac LN consistent with metastatic involvement. Status post IMRT to his prostate bed and pelvic LNs in 01/2016. He has also received neoadjuvant and concurrent + adjuvant androgen deprivation. His PSA was up from undetectable to 0.18 11/21, jumped up to 9.4 May of 2018. He recently completed a PET Axium scan which showed significant uptake in subcarinal lymphadenopathy and prostate bed but no significant bony lesions. Erleada 07/2019-12/2021 (treatment was interrupted from December 2021 due to insurance coverage) Off Lupron since 04/2022 due to insurance issue. Interval history: The patient has been on Erleada treatment since July of 2019. Due to insurance issue, he had treatment interruption from Erleada and Lupron treatment for about 6 months. Over the past 6 months he has been on Erlead without interruption. He has not had any Lupron treatment since 04/2022 , refused option of orchiectomy. No dysuria. Weight has been relatively stable. No significant cough or shortness of breath. No lower extremity swelling. No new complaint today. Past Medical History: Diagnosis Date Gastric ulcer Hypercholesteremia Prediabetes Prostate cancer ([facility]) Past Surgical History: Procedure Laterality Date CARDIAC PACEMAKER PLACEMENT CYSTOSCOPY N/A 07/15/2019 Performed by Giovany Eric MD at [facility] PROSTATE SURGERY Family History Adopted: Yes Family history unknown: Yes Social History Socioeconomic History Marital status: Spouse name: Not on file Number of children: Not on file Years of education: Not on file Highest education level: Some college, no degree Occupational History Not on file Tobacco Use Smoking status: Former Packs/day: 1.00 Years: 5.00 Additional pack years: 0.00 Total pack years: 5.00 Types: Cigarettes Smokeless tobacco: Former Types: Chew Substance and Sexual Activity Alcohol use: Yes Drug use: No Sexual activity: Not on file Other Topics Concern Not on file Social History Narrative Not on file Social Determinants of Health Financial Resource Strain: Medium Risk (03/11/2023) Overall Financial Resource Strain (CARDIA) Difficulty of Paying Living Expenses: Somewhat hard Food Insecurity: Food Insecurity Present (03/11/2023) Hunger Screening Food Insecurity - Worry: Sometimes True Food Insecurity - Inability: Never True Transportation Needs: No Transportation Needs (03/11/2023) PRAPARE - Transportation Lack of Transportation (Medical): No Lack of Transportation (Non-Medical): No Physical Activity: Sufficiently Active (10/12/2021) Exercise Vital Sign Days of Exercise per Week: 5 days Minutes of Exercise per Session: 30 min Stress: Stress Concern Present (10/12/2021) [employer] [place] [employer] - Occupational Stress Questionnaire Feeling of Stress : To some extent Social Connections: Socially Integrated (10/12/2021) Social Connection and Isolation Panel [NHANES] Frequency of Communication with Friends and Family: Three times a week Frequency of Social Gatherings with Friends and Family: More than three times a week Attends Yazdanism Services: More than 4 times per year Active Member of Clubs or Organizations: Yes Attends Club or Organization Meetings: More than 4 times per year Marital Status: Interpersonal Safety: Not At Risk (10/12/2021) Humiliation, Afraid, Rape, and Kick questionnaire Fear of Current or Ex-Partner: No Emotionally Abused: No Physically Abused: No Sexually Abused: No Housing Instability: Low Risk (03/11/2023) Housing Instability Housing Instability: No Allergies Allergen Reactions Acyclovir Medication List Accurate as of October 17, 2023 3:32 PM. If you have any questions, ask your nurse or doctor. New Medications Ordered This Visit bicalutamide 50 mg chemo tablet Quantity: 90 tablet Refills: 3 Dose: 50 mg Signed by: Dr. Madisyn Genao MD 50 mg, oral, Daily Commonly known as: CASODEX Started by: Madisyn Genao MD Medications Continued This Visit apalutamide 60 mg chemo tablet Quantity: 120 tablet Refills: 11 For diagnoses: Primary malignant neoplasm of prostate (CMS-HCC) Signed by: Dr. Madisyn Genao MD Take 4 tablets by mouth daily metFORMIN 500 mg tablet Refills: 0 Dose: 1 tablet Commonly known as: GLUCOPHAGE Review of Symptoms: Review of Systems Constitutional: Positive for fatigue. Genitourinary: Positive for difficulty urinating. All other systems reviewed and are negative. ECO- Symptomatic; fully ambulatory Physical Exam: BP 120/71 Pulse 81 Temp 36.7 C (98.1 F) (Oral) Resp 16 Ht 185.4 cm (6' 0.99 ) Wt 97 kg (213 lb 12.8 oz) SpO2 100% BMI 28.21 kg/m General: Well appearing, in no acute distress. Vitals: There were no vitals taken for this visit. There is no height or weight on file to calculate BMI. Eyes: No icterus, no conjuctival erythema ENT: Pharyngeal mucosa was moist without exudate and inflammation or ulcerations. Tongue was midline and appeared normal.Gums were unremarkable. Lymph nodes: No palpable adenopathy Neck: Supple. There were no masses, tenderness. Trachea was midline. Respiratory: Respirations were non-labored. Lungs were clear to auscultation. There was no dullness to percussion. Cardiac: Regular rate and rhythm, S1 and S2 sounds were normal.There were no rubs or gallops. Abdomen: Soft, non-tender, Nondistended. Bowel sounds audible in all four quadrants. There were no palpable masses. The liver and spleen were not enlarged. Extremities: There was no clubbing, Cyanosis, edema. Skin: There was no obvious rashes, bruising or ecchymosis. Back exam: No palpable tenderness was appreciated. Neurologic: There was no unilateral weakness. Mood and affect: Normal. Recent Imaging: No results found. Recent Labs: Recent Results (from the past 336 hour(s)) Prostatic specific antigen, diagnostic Collection Time: 10/10/23 3:42 PM Result Value Ref Range PSA <0.01 0.00 - 4.00 ng/mL Comprehensive metabolic panel Collection Time: 10/10/23 3:42 PM Result Value Ref Range Sodium 136 134 - 146 mmol/L Potassium, Bld 4.2 3.5 - 5.0 mmol/L Chloride 98 98 - 109 mmol/L CO2 29 22 - 32 mmol/L Anion gap 9 5 - 15 mmol/L BUN 16 5 - 27 mg/dL Creatinine 0.86 0.60 - 1.30 mg/dL Glucose 108 (H) 65 - 99 mg/dL Calcium 9.7 8.5 - 10.5 mg/dL Total Protein 8.2 (H) 6.0 - 8.0 g/dL Albumin 4.6 3.2 - 5.3 g/dL Alkaline Phosphatase 60 39 - 130 U/L AST 18 0 - 41 U/L ALT 13 0 - 40 U/L Total bilirubin 0.4 0.3 - 1.2 mg/dL eGFR (CKD-EPI)non-race dependent >90 >59 ml/min/1.73sq.m CBC auto differential Collection Time: 10/10/23 3:42 PM Result Value Ref Range White Blood Cells 8.4 4.0 - 11.0 X10E9/L RBC count 4.43 4.10 - 5.70 X10E12/L Hemoglobin 13.3 13.0 - 17.0 g/dL Hematocrit 39.2 39 - 49 % MCV 88 80 - 100 fL MCH 30.0 27 - 34 pg MCHC 34.0 32 - 36 g/dL RDW 13.2 11.5 - 15.0 % Platelets 356 150 - 450 X10E9/L MPV 8.2 7 - 12 fL % neutrophils 70.6 % % lymphocytes 18.8 % % monocytes 9.1 % % eosinophils 0.8 % % Basophils 0.7 % Neutrophils Absolute (A) 5.9 1.5 - 6.6 X10E9/L Lymphocytes Absolute 1.6 1.0 - 3.5 X10E9/L Monocytes Absolute 0.8 0 - 0.9 X10E9/L Eosinophils Absolute 0.1 0.0 - 0.4 X10E9/L Basophils Absolute 0.1 0.0 - 0.2 X10E9/L Diagnosis Problem list: Problem List Items Addressed This Visit Genitourinary Primary malignant neoplasm of prostate (CMS-HCC) - Primary Relevant Medications bicalutamide (CASODEX) 50 mg chemo tablet Impression: Recurrent castration sensitive metastatic prostate cancer Bradycardia status post pacemaker placement Plan: CBC CMP are unremarkable after starting Erleada. PSA is undetectable. Very good response to treatment. The most common adverse reactions for patients who received apalutamide were fatigue, arthralgia, rash, decreased appetite, fall, weight decreased, hypertension, hot flush, diarrhea, and fracture. Continue apalutamide is 240 mg (four 60 mg tablets) orally once daily. PSA has been very stable since November 2019 PSA in May 2022 after 6 months without treatment was still 0.01. The patient's most recent PSA level remains undetectable less than 0.01 (04/2023). The patient's testosterone level is at 115 ng/dl (castration level should be 20-50). Continue CBC CMP, PSA every 3 months. Start Casodex. Patient refused orchiectomy in the past Follow up with me in 6 months. Follow-up with urology as needed regarding urine retention and continue stricture dilatation. Madisyn Genao MD Please note that portions of this note were generated using voice recognition M*Modal dictation software. Although every effort was made to ensure the accuracy of this automated dye tub tender, some errors in dye tub tender may have occurred. CC: Patient Care Team: Miguelina Richard APRN-KATALINA as PCP - General (Internal Medicine) Emeka Mendez MD as Consulting Physician (Radiation Oncology) Madisyn Genao MD as Consulting Physician (Hematology) Giovany Eric MD as Consulting Physician (Urology) PCP:MIGUELINA RICHARD Referring MD: Geronimo Robert MD documented in this encounter [facility] 10-17-2023 Instructions Madisyn Genao MD - 10/17/2023 2:15 PM EDT Continue CBC CMP, PSA every 3 months. check testosterone level next time. F/u in 6 months. documented in this encounter [facility] 09-25-2023 Note [facility] Consult Note Reason for visit: 6 month HPI: Kath Molina is a 67 y.o. year old with past medical history of prostate CA, SSS s/p PPM [place] [address] neil, chest pain, cath 2018 showing near normal cors he is here for 6-month follow-up Device check 04/23/2023 shows stable function/thresholds 03/2022 shoed normal device function, stable thresholds, no AF seen since 08/2021. RAp 93%, RVp 0% METS>6 He denies CP, sob, jain, le edema 03/[address] Martinez cc; Afib HPI: November 06, 2021 device check reveals 90% atrial pacing and 1% RV pacing with no A. fib. He is doing well. H ehad nocturnal pulse oxy and was +. Adv sleep referral Prior HPI: 65-year-old man with a past medical history of sinus node dysfunction s/p dual-chamber pacemaker, that was performed by Dr. Neil on 03/16/2016, prostate cancer diagnosed in 2016 s/p prostatectomy with recurrence in 2016 that led to chemo therapy and radiation. He is continue with chemotherapy at the moment. He had been following up with Dr. Nicole in the past. He has had prior episodes of chest pain and has had undergone cardiac cath which has so far does not reveal any significant CAD. Today he had presented to the device clinic for evaluation and was noted to have atrial fibrillation that was noted to last at least for an hour and 5 minutes. Patient has been doing well and was recently admitted to [facility] with Covid along with his . He states that this had affected him but now he feels like he is slowly getting better. He used to walk his dog which would be approximately 3 miles up until last June. Personal history: Sick sinus syndrome s/p pacemaker, prostate cancer s/p prostatectomy, recent admission with Covid pneumonia Personal history and lives with his Denied tobacco abuse PMH: No past medical history on file. PSH: No past surgical history on file. SH: Social Determinants of Health Tobacco Use: Not on file Alcohol Use: Not on file Financial Resource Strain: Not on file Food Insecurity: Not on file Transportation Needs: Not on file Physical Activity: Not on file Stress: Not on file Social Connections: Not on file Intimate Partner Violence: Not on file Depression: Not on file Housing Stability: Not on file Utilities: Not on file Allergies: Allergies Allergen Reactions Acyclovir Weight: 96.2kg Visit Vitals BP 107/76 (BP Location: Right arm, Patient Position: Sitting) Pulse 79 Ht 1.88 m (6' 2 ) Wt 96.2 kg (212 lb) SpO2 97% BMI 27.22 kg/m??? BSA 2.24 m??? Meds: Current Outpatient Medications on File Prior to Visit Medication Sig Dispense Refill apalutamide (Erleada) 60 mg tablet Take by mouth. aspirin 81 mg chewable tablet Chew 1 tablet every day by oral route. atorvastatin (Lipitor) 10 mg tablet Take 20 mg by mouth at bedtime. cyanocobalamin (Vitamin B-12) 100 mcg tablet Take 100 mcg by mouth in the morning. fluticasone (Flonase) 50 mcg/actuation nasal spray 1-2 sprays in the morning. zinc gluconate 10 mg lozenge Dissolve in the mouth. famotidine (Pepcid) 20 mg tablet Take 20 mg by mouth. metFORMIN (Glucophage) 500 mg tablet Take 500 mg by mouth twice a day. No current facility-administered medications on file prior to visit. ROS: Cardio Basic Cardiovascular Symptoms: no lightheadedness, no leg edema, no syncope, no orthopnea, no PND, no claudication, Constitutional Constitutional: no fever, no night sweats, no significant weight gain, no significant weight loss, no exercise intolerance Eyes Eyes: no dry eyes, no irritation, no vision change ENMT Ears: no difficulty hearing, no ear pain Nose: no frequent nosebleeds, Mouth/Throat: no sore throat, no bleeding gums, no snoring, no dry mouth, no mouth ulcers, no oral abnormalities, no teeth problems Respiratory Respiratory: no cough, no wheezing, no coughing up blood, no sleep apnea Musculoskeletal Musculoskeletal: no muscle aches, no muscle weakness, joint pain+, no back pain, no swelling in the extremities Integumentary Skin no rash, no ulcer, no varicosities, no discoloration, no pruritus Neurologic Neurologic: no loss of consciousness, no weakness, no numbness, no seizures, no dizziness, no headaches Psychiatric Psych: no depression, feeling safe in relationship, no alcohol abuse, Hematologic/Lymphatic Hematologic/Lymphatic no swollen glands, no bruising Physical Exam: Constitutional General Appearance: well-nourished, well-developed, appears stated age Level of Distress: comfortable Psychiatric Mental Status: alert, normal affect Orientation: oriented to time, place, and person Insight: good judgement Eyes Lids and Conjunctivae: non-injected, no xanthelasma ENMT Ears: no lesions on external ear Nose: no lesions on external nose Oropharynx: no cyanosis, no pallor (more content not included)... [facility] 09-25-2023 Note Patient here for 6 m o follow up sinus node dysfunction, PAF, and hyperlipidemia. Had routine labs last month at PCP's office. Says he has occasional mild chest pain and SOB ever since he was ill at [facility]. PCP increased atorvastatin a few weeks ago, with plans for repeat lipids in another few weeks. Scheduled next week for routine device interrogation. Review of Systems Cardiovascular: Positive for chest pain ( occasionally mild ) and dyspnea on exertion. Respiratory: Positive for cough, shortness of breath and wheezing. Musculoskeletal: Positive for arthritis, back pain and joint pain. Neurological: Positive for headaches. All other systems reviewed and are negative. [facility] 09-03-2023 History of Present illness Narrative Kath Molina is a 67 y.o. male presents with chief complaint of Medicare Annual Wellness Visit Subsequent HPI: HPI Over the past 2 weeks, how often have you been bothered by any of the following problems? Little interest or pleasure in doing things: Not at all Feeling down, depressed, or hopeless: Not at all Patient Health Questionnaire-2 Score: 0 Over the past 2 weeks, how often have you been bothered by any of the following problems? Trouble falling or staying asleep, or sleeping too much: More than half the days Feeling tired or having little energy: Not at all Poor appetite or overeating: Not at all Feeling bad about yourself - or that you are a failure or have let yourself or your family down: Not at all Trouble concentrating on things, such as reading the newspaper or watching television: Not at all Moving or speaking so slowly that other people could have noticed? Or the opposite - being so fidgety or restless that you have been moving around a lot more than usual.: Not at all Thoughts that you would be better off or hurting yourself in some way: Not at all Patient Health Questionnaire-9 Score: 2 Gaitan Fall Risk History of Falling, Immediate or Within 3 Months: No Secondary Diagnosis: No Ambulatory Aid: Walks without aid/bedrest/nurse assist Intravenous Therapy/Heparin Lock: No Gait/Transferring: Normal/bedrest/immobile Mental Status: Oriented to own ability Gaitan Fall Risk Score: 0 Health Risk Assessment Form Do you need help eating, bathing, using the toilet, dressing, or getting around your home?: No Can you prepare your own meals?: Yes Can you do your own housework without help?: Yes Can you shop for groceries or clothes without help?: Yes Do you exercise for about 20 minutes 3 or more days a week?: No How confident are you that you can control and manage most of your health problems?: Very confident Can you mange your money, credit cards and accounts, pay bills and taxes?: Yes Vision Screening: Yes, 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 (DR Gimenez) Hearing Screening: Yes, no gross abnormalities Cognitive Screening Self Assessment: No overt cognitive deficiency is apparent by direct observation Three Word Registration: BanShannon cartagenarise, Chair Clock Drawing: Normal Clock - 2 Three Word Recall: 2/3 words correct - 2 Total Score (0-5 Points): 4 Pain Assessment Pain Score: 1 SUBJECTIVE: MEDICATIONS: Current Outpatient Medications Medication Instructions Apalutamide (Erleada) 60 MG tablet Oral aspirin 81 mg, Oral, Daily atorvastatin (LIPITOR) 10 mg, Oral, Every morning Blood Glucose Monitoring Suppl (LOSC Management glucose monitoring) kit 1 each, Does not apply, 2 times daily Continuous Blood Gluc Top Closer (FreeStyle Rae 2 [place]) device Does not apply, 2 times daily Continuous Blood Gluc Sensor (FreeStyle Rae 2 Sensor) misc Does not apply, 2 times daily cyanocobalamin (VITAMIN B-12) 100 mcg, Oral, Daily famotidine (PEPCID) 20 mg, Oral fluticasone (Flonase) 50 MCG/ACT nasal spray 1-2 sprays, Each Nostril, Daily, Shake gently. Before first use, prime pump. After use, clean tip and replace cap. Lancets misc Does not apply metFORMIN XR (GLUCOPHAGE-XR) 1,000 mg, Oral, Daily, Do not crush, chew, or split. Multiple Vitamin (multivitamin) tablet 1 tablet, Oral, Daily OneTouch Verio test strip USE 1 STRIP TWICE DAILY Zinc 10 MG lozenge Mouth/Throat REVIEW OF SYMPTOMS: Review of Systems Constitutional: Negative for chills and fatigue. HENT: Negative for ear discharge, ear pain, rhinorrhea and sore throat. Eyes: Negative for pain and redness. Respiratory: Negative for cough and chest tightness. Cardiovascular: Negative for chest pain and palpitations. Gastrointestinal: Negative for abdominal distention and abdominal pain. Genitourinary: Negative for difficulty urinating and frequency. Musculoskeletal: Negative for arthralgias and gait problem. Skin: Negative. Neurological: Negative for dizziness and numbness. Endocrine: Negative. Allergic/Immunologic: Negative. OBJECTIVE: Visit Vitals BP 102/60 (BP Location: Left arm, Patient Position: Sitting, BP Cuff Size: Large adult) Pulse 76 Resp 16 Ht 6' Wt 225 lb BMI 30.52 kg/m Smoking Status Former BSA 2.28 m Physical Exam Vitals reviewed. Constitutional: Appearance: Normal appearance. HENT: Head: Normocephalic. Right Ear: Hearing and tympanic membrane normal. Left Ear: Hearing and tympanic membrane normal. Nose: Nose normal. Right Turbinates: Not enlarged. Left Turbinates: Not enlarged. Right Sinus: No maxillary sinus tenderness or frontal sinus tenderness. Left Sinus: No maxillary sinus tenderness or frontal sinus tenderness. Mouth/Throat: Lips: [place]. Mouth: Mucous membranes are moist. Pharynx: Oropharynx is clear. Uvula midline. Tonsils: No tonsillar exudate. Eyes: General: Lids are normal. Vision grossly intact. Gaze aligned appropriately. Extraocular Movements: Extraocular movements intact. Conjunctiva/sclera: Conjunctivae normal. Neck: Thyroid: No thyroid mass or thyromegaly. Vascular: No carotid bruit. Trachea: Trachea normal. Cardiovascular: Rate and Rhythm: Normal rate and regular rhythm. Pulses: Normal pulses. Heart sounds: Normal heart sounds. Pulmonary: Effort: Pulmonary effort is normal. Breath sounds: Normal breath sounds and air entry. Abdominal: General: Abdomen is flat. Bowel sounds are normal. Palpations: Abdomen is soft. Musculoskeletal: Cervical back: Full passive range of motion without pain, normal range of motion and neck supple. Lymphadenopathy: Cervical: No cervical adenopathy. Skin: General: Skin is warm. Capillary Refill: Capillary refill takes less than 2 seconds. Neurological: Mental Status: He is alert and oriented to person, place, and time. Sensory: Sensation is intact. Motor: Motor function is intact. Coordination: Coordination is intact. Psychiatric: Attention and Perception: Attention and perception normal. Mood and Affect: Mood and affect normal. Speech: Speech normal. Behavior: Behavior is cooperative. Thought Content: Thought content normal. ASSESSMENT AND PLAN: Assessment/Plan Diagnoses and all orders for this visit: Type 2 diabetes mellitus without complication, without long-term current use of insulin ([facility]) - Comprehensive metabolic panel; Future - Microalbumin / creatinine, urine ratio; Future - Hemoglobin A1c; Future Diabetic protocols reviewed. Discussed and updated current management plan. Addressed barriers to care, diet, exercise plan and blood sugar testing. Education provided for medications. Goal A1C <7 and BP <130/80 for suboptimally controlled diabetes. I have encouraged patient to check feet regularly and to see ophthomololgist annually. I have discussed the need for regular testing and follow up. We will recheck an A1C every 3 months and microalbumin yearly. Discussed complications which could include blindness, heart disease and kidney disease. Mixed hyperlipidemia ([facility]) - CBC and differential; Future - Lipid panel; Future Await results Encounter for wellness examination - CBC and differential; Future - PSA; Future - Lipid panel; Future - Comprehensive metabolic panel; Future - Microalbumin / creatinine, urine ratio; Future - Hemoglobin A1c; Future Wellness performed at today. Height, weight, BMI, problem list, and immunizations records reviewed. Dental care discussed with patient. Encouraged annual vision screenings and semi-annual dental care. 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 Ask if him if he is taking his cholesterol medication. His cholesterol is elevated. If he is taking it then we need to increase it to 20mg and recheck his labs in 6 weeks. documented in this encounter [facility] 09-03-2023 Progress note Formatting of t his note might be different from the original. Let him know he is a little anemic. Ask if him if he is taking his cholesterol medication. His cholesterol is elevated. If he is taking it then we need to increase it to 20mg and recheck his labs in 6 weeks. [facility] 06-19-[address] [id number] CONSULTATION PATIENT NAME: KATH MOLINA : 1955 MED REC NO: [id number] ROOM: 23 ACCOUNT NO: [id number] ADMIT DATE: 06/15/2022 PROVIDER: Stephanie West CONSULT DATE: 06/15/2022 OPHTHALMOLOGY CONSULT HISTORY OF PRESENT ILLNESS: The patient was brought to the [facility] after being seen in an outside facility where he was triaged for dog bite. The dog had bitten the left side of his face including the cheek, forehead, scalp and lateral canthal area of the left eye. He was brought in on 06/15/2022. The patient was seen to the bedside at [facility] in [place]. The patient had no complaints of visual loss. He had expressed significant pain in the area of injuries of forehead, scalp and cheek as well as the lateral canthal area of the left eye. He additionally complained of blood loss from the area. At the remote facility, area was not occluding the lateral canthal and upper lid were sutured prior to my evaluation of the patient. Examination of visual acuity of left eye with count finger . Pupils round, reactive to light. Extraocular muscles show full motility. Anterior chamber was formed. Conjunctiva was white and quiet. He had two lacerations. They were distinct from each other, one in the upper lid at the lateral end of the upper lid just above the lateral canthus and a second laceration at slightly temporal through the lateral canthus, but nothing is involving the lateral canthal angle. These were quite deep involving superficial as well as deeper layers of the skin. He was given for pain control; however, he was still in significant pain. IMPRESSION: Dog bite injuries to the eyelid and lateral canthal area. RECOMMENDATION: Plan is to repair the canthal area in the emergency room. My impression is that his other wounds have been sutured prior to my arrival. STEPHANIE WEST [id number] Doc#: [id number] CC: [facility] 06-15-2022 History of Present illness Narrative SPIRITUAL CARE DEPARTMENT - [facility] Emergency/Trauma Note PATIENT NAME: Kath Molina Shift date: 06/15/2022 Shift day: Shift # 3 Room # Name: Kath Molina Age: 66 y.o. Gender: male Confucianist: Ep[employer] Place of pentecostal: Trauma/Incident type: Adult Trauma Consult Admit Date & Time: 06/15/2022 2:19 AM TRAUMA NAME: ADVANCE DIRECTIVES IN CHART? No NAME OF DECISION MAKER: RELATIONSHIP OF DECISION MAKER TO PATIENT: PATIENT/EVENT DESCRIPTION: Kath Molina is a 66 y.o. male who arrived via personal vehicle as a Trauma Consult. Patient was bitten by family pit bull in the face by his left eye. Pt to be admitted to . SPIRITUAL [id number]: [employer]eleserv[employer] Representative was ministry of presence. Patient's spouse was present. Patient shared how he was bitten by family dog. Teleserv[employer] Representative provided spiritual and emotional support. PATIENT BELONGINGS: With patient ANY BELONGINGS OF SIGNIFICANT VALUE NOTED: none REGISTRATION STAFF NOTIFIED? No WHAT IS YOUR SPIRITUAL CARE PLAN FOR THIS PATIENT?: Chaplains may be paged 25/02 via [employer]. . Spiritual Care Department [facility] [phone] documented in this encounter [facility] [employer] Phone: Evaluation note Diagnosis Bite wound- Primary Injury, other and unspecified, unspecified site Dog bite, initial encounter Dog bite of eye region, left, initial encounter Dog bite of eye region [facility]* Diagnosis Type 2 diabetes mellitus without complication, without long-term current use of insulin (CMS/HCC)- Primary Mixed hyperlipidemia (CMS/HCC) Mixed hyperlipidemia Encounter for wellness examination Screening for prostate cancer Special screening for malignant neoplasm of prostate Type 2 diabetes mellitus with diabetic polyneuropathy, without long-term current use of insulin (CMS/HCC) Malignant neoplasm of prostate (C61) Malignant neoplasm of prostate 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) Sick sinus syndrome (I49.5) Sinoatrial node dysfunction Neuropathy Mononeuritis of unspecified site Aortic valve disorder Aortic valve disorders Palpitations Sinus node dysfunction (CMS/HCC) Carcinoma in situ of prostate Primary malignant neoplasm of prostate (CMS/HCC) Cervical spondylosis without myelopathy Hallux valgus (acquired), left foot Arthritis Unspecified arthropathy, site unspecified History of prostatectomy Other postprocedural status Colon cancer screening declined Advanced directives, counseling/discussion Other specified counseling documented in this encounter [facility] HealthcareEvaluation note* Diagnosis Primary malignant neoplasm of prostate (CMS-HCC)- Primary [facility] Diagnosis Primary malignant neoplasm of prostate (CMS-HCC)- Primary documented in this encounter [facility]* Diagnosis Primary malignant neoplasm of prostate (CMS-HCC)- Primary [facility] SystemInstructionsNot on filedocumented in this encounter [facility] SystemInstructionsNot on filedocumented in this encounter [facility] Summary Purpose Family History No Family History Records FoundNo Family History Records FoundNo Family History Records FoundNo Family History Records FoundNo Family History Records FoundNo Family History Records FoundNo Family History Records Found Advance Directives No Advanced Directives Records FoundLatest Code Status on File Code Status Date Activated Date Inactivated Comments Full Code 06/15/2022 5:30 AM Additional Source Comments (unrecognized sect ion and content) No Status Records FoundNo Status Records FoundNo Status Records FoundNo Status Records FoundNo Status Records FoundNo Status Records FoundNo Status Records Found INFORMATION SOURCE (unrecogn ized section and content) DATE CREATED AUTHOR 01/27/2018 [facility] DATE CREATED AUTHOR AUTHOR'S ORGANIZ ATION 03/09/2020 [facility] DATE CREATED AUTHOR AUTHOR'S ORGANIZ ATION 05/28/2022 [facility] DATE CREATED AUTHOR AUTHOR'S ORGANIZ ATION 07/12/2022 [facility] DATE CREATED AUTHOR AUTHOR'S ORGANIZ ATION 03/13/2024 [facility] DATE CREATED AUTHOR AUTHOR'S ORGANIZ ATION 04/02/2024 [facility] DATE CREATED AUTHOR AUTHOR'S ORGANIZ ATION 04/17/2024 [facility] Reason for Visit (unrecogniz ed section and content) Reason Comments Animal Bite Left eye Reason Comments Medicare Annual Wellness Visit Subsequen t Reason Comments Follow-up Ordered Prescriptions (unrec ognized section and content) Prescription Sig Dispensed Refills Start Date End Da te oxyCODONE (ROXICODONE) 5 MG immediate release tabletIndications:Dog bite of eye region, left, initial encounter Take 0.5 tablets by mouth every 6 hours as needed for Pain for up to 5 days. 6 tablet 0 06/15/2022 06/20/2022 hyygcicu-nshremjal-vedbd ethasone (MAXITROL) 0.1 % ophthalmic suspension Place 2 drops into the left eye 2 times daily for 10 days 2 mL 0 06/15/2022 06/25/2022 amoxicillin-clavulanate (AUGMENTIN) 875-125 MG per tablet Take 1 tablet by mouth every 12 hours for 10 days 20 tablet 0 06/15/2022 06/25/2022 Scheduled Active and Recently Administ ered Medications (unrecognized section and content) Medication Order 06/13/2022 06/14/2022 06/15/2022 acetaminophen (TYLENOL) tablet 1,000 mg 1,000 mg, Oral, EVERY 8 HOURS SCHEDULED (3 times per day), First dose on Sat06/15/22 at 0600, Until Discontinued, Maximum dose of acetaminophen is 4000 mg from all sources in 24 hours. 0606 (Not Given - Pr ovider: Kath Mims RN - Reason: Other - Comment: Gave oxycodone instead. Pt has a PRN order. Pt complaints of facial pain)1227 (Given - Provider: Maya Walsh RN)2200 (Due) amoxicillin-clavulanate (AUGMENTIN) 875-125 MG per tablet 1 tablet 1 tablet, Oral, EVERY 12 HOURS SCHEDULED (2 times per day), First dose on Sat06/15/22 at 0915, Until Discontinued, Antimicrobial Indications: Surgical Prophylaxis 1210 (Given - Provid er: Maya Walsh RN)2100 (Due) fluorescein ophthalmic strip 1 mg (COMPLETED) 1 mg (1 strip), Left Eye, ONCE, 1 dose, On Sat06/15/22 at 0230, 1 mg = 1 strip 0236 (Given - Provid er: Kath Mims RN - Comment: Dr. Shaffer use it) polyethylene glycol (GLYCOLAX) packet 17 g 17 g, Oral, DAILY, First dose on Sat06/15/22 at 0900, Until Discontinued, Stir and dissolve one packet of powder (17 g) in any 4 to 8 ounces of beverage (cold, hot or room temperature) then drink 1211 (Held - Provide r: Maya Walsh RN - Reason: Pt NPO) proparacaine (ALCAINE) 0.5 % ophthalmic solution 1 drop (COMPLETED) 1 drop, Left Eye, ONCE, 1 dose, On Sat06/15/22 at 0230 0236 (Given - Provid er: Kath Mims RN - Comment: Dr. Shaffer use it) sodium chloride flush 0.9 % injection 5-40 mL 5-40 mL, IntraVENous, EVERY 12 HOURS SCHEDULED (2 times per day), First dose on Sat06/15/22 at 0900, Until Discontinued, For Line Patency: Peripheral IV = 5 mL; Midline or Central Line = 10 mL/lumen. If following IV push medication, administer flush at same rate as the IV push. Flush volume is determined by type of infusion therapy being given. For non-viscous solutions use: Peripheral IV = 5 mL Midline or Central Line = 10 mL/lumen For viscous solutions (i.e. blood components, parenteral nutrition, contrast media, or after obtaining blood sample) use: Peripheral IV = 10 mL Midline or Central Line = 20 mL/lumen 1228 (Given - Provid er: Maya Walsh RN)2100 (Due) Continuous Medication Order 06/13/2022 06/14/2022 06/15/2022 dextrose 5 % and 0.45 % sodium chloride infusion IntraVENous, at 100 mL/hr, CONTINUOUS, Starting on Sat06/15/22 at 0545 0557 (New Bag - Prov ider: Kath Mims RN)1423 (Stopped - Provider: Maya Walsh RN) PRN Medication Order 06/13/2022 06/14/2022 06/15/2022 0.9 % sodium chloride infusion IntraVENous, at 5-250 mL/hr, PRN, if patient receiving piggyback infusions and maintenance fluids are not ordered OR KVO fluids to protect IV site / prevent frequent line interruptions/ long duration, Starting on Sat06/15/22 at 0526, For piggyback infusion, administer at same rate as piggyback for a total of 25 mL. Enter 25 mL into dose field and piggyback rate into rate field of order. If piggyback is infusing at a rate less than 100 mL/hr, enter 25 mL into dose field and 100 mL/hr into rate field of order. For KVO fluids, enter rate of 20 mL/hr or less into rate field of order. bisacodyl (DULCOLAX) suppository 10 mg 10 mg, Rectal, DAILY PRN, Starting on Sat06/15/22 at 0529, Until Discontinued, Constipation ondansetron (ZOFRAN) injection 4 mg(Linked Group 1) 4 mg, IntraVENous, EVERY 6 HOURS PRN, Starting on Sat06/15/22 at 0526, Until Discontinued, Nausea, Vomiting, Administer if oral route cannot be used. ondansetron (ZOFRAN-ODT) disintegrating tablet 4 mg(Linked Group 1) 4 mg, Oral, EVERY 8 HOURS PRN, Starting on Sat06/15/22 at 0526, Until Discontinued, Nausea, Vomiting oxyCODONE (ROXICODONE) immediate release tablet 2.5 mg 2.5 mg, Oral, EVERY 6 HOURS PRN, Starting on Sat06/15/22 at 0530, Until Discontinued, Pain Moderate (4-6) 0604 (Given - Provid er: Kath Mims RN)1227 (Given - Provider: Maya Walsh RN) oxyCODONE (ROXICODONE) immediate release tablet 2.5 mg 2.5 mg, Oral, EVERY 6 HOURS PRN, 12 doses, Starting on Sat06/15/22 at 1359, Until Discontinued, Pain Severe (7-10) sodium chloride flush 0.9 % injection 5-40 mL 5-40 mL, IntraVENous, PRN, Starting on Sat06/15/22 at 0526, Until Discontinued, Line Care, After every IV line use, For Line Patency: Peripheral IV = 5 mL; Midline or Central Line = 10 mL/lumen. If following IV push medication, administer flush at same rate as the IV push. Flush volume is determined by type of infusion therapy being given. For non-viscous solutions use: Peripheral IV = 5 mL Midline or Central Line = 10 mL/lumen For viscous solutions (i.e. blood components, parenteral nutrition, contrast media, or after obtaining blood sample) use: Peripheral IV = 10 mL Midline or Central Line = 20 mL/lumen No Frequency Medication Order 06/13/2022 06/14/2022 06/15/2022 lidocaine 1 % injection 1 dose, Starting on Sat06/15/22 at 1246, Until 06/16/22 at 0059, JEAN PAUL LOPEZECCA: cabinet override, JEAN PAUL LOPEZECCA: cabinet override 1300 (Due) Linked Groups Order Group 1: ondansetron (ZOFRAN-ODT) disintegrating tablet 4 mgJump to med 4 mg, Oral, EVERY 8 HOURS PRN, Starting on Sat06/15/22 at 0526, Until Discontinued, Nausea, Vomiting Or ondansetron (ZOFRAN) injection 4 mgJump to med 4 mg, IntraVENous, EVERY 6 HOURS PRN, Starting on Sat06/15/22 at 0526, Until Discontinued, Nausea, Vomiting
Administer if oral route cannot be used.
Care Teams (unrecognized sec tion and content) Compensation Associate Relationship Specialty Start Date End Date Geronimo Robert MD [address] [place] [address] PCP - General Family Medicine 06/15/22 Compensation Associate Relationship Specialty Start Date End Date Esthela Mahajan MD [address] [place] [address] PCP - Devoted 08/05/22 Esthela Mahajan MD [address] [place] [address] PCP - General 01/02/23 Compensation Associate Relationship Specialty Start Date End Date Miguelina Richard APRN-PUBLIC HEALTH ANALYST [address] [place] [address] PCP - General Internal Medicine 12/03/22 Compensation Associate Relationship Specialty Start Date End Date Miguelina Richard, BERENICE-KATALINA [address] [facility] [place] [address] PCP - General Internal Medicine 12/03/22 Compensation Associate Relationship Specialty Start Date End Date Miguelina Richard APRN-PUBLIC HEALTH ANALYST [address] [facility] [place] [address] PCP - General Internal Medicine 12/03/22 FOR RECORDS PERTAINING TO PATIENTS WHO ARE OR HAVE BEEN ENROLLED IN A CHEMICAL DEPENDENCY/SUBSTANCEABUSE PROGRAM, SOME INFORMATION MAY BE OMITTED. This clinical summary was aggregated from multiple sources. Caution should be exercised in using it in the provision of clinical care. This summary normalizes information from multiple sources, and as a consequence, information in this document may materially change the coding, format and clinical context of patient data. In addition, data may be omitted in some cases. CLINICAL DECISIONS SHOULD BE BASED ON THE PRIMARY CLINICAL RECORDS. [employer] [facility]. provides no warranty or guarantee of the accuracy or completeness of information in this document.
[2024-06-04 09:59] LABS: Alanine Aminotransferase 27 U/L (16-63); Albumin Level 3.9 g/dL (3.4-5.0); Alkaline Phosphatase 64 U/L (46-116); Aspartate Amino Transferase 27 U/L (15-37); Bilirubin Direct 0.1 mg/dL (0.0-0.2); Bilirubin Total 0.4 mg/dL (0.2-1.0); Chol HDL Ratio 3.8; Cholesterol 174 mg/dL (<=200); Globulin 3.9 g/dL; HDL Cholesterol 46 mg/dL (40-60); LDL Cholesterol Calculated 101.6 mg/dL; Total Protein 7.8 g/dL (6.4-8.2); Triglycerides 132 mg/dL (<=150); VLDL CHOLESTEROL 26.4 mg/dL
== END 2024-06-04 09:07 | disposition home or self-care (01) ==
LOC: LAB 09:08
PROVIDERS: PCP Nurse Practitioner Family; Visit Provider Nurse Practitioner
DX: E78.2 Mixed hyperlipidemia (principal)
CPT/HCPCS: 36415; 80061; 80076

== ENCOUNTER 2025-02-11 09:34 | Outpatient (OUT) | payer MEDICARE, SELFPAY ==
--- OUTSIDE RECORDS SUMMARY | 2025-02-11 09:39 | XMS_ITS | Encounter Summary ---
Author Organization [facility] Address [id number] [address] [place] [address] Care Team Providers Care Pantry Goods Maker Name Role Phone Richard, Christy Dimple GN-PRIVACY SPECIALIST Primary Care Pro vider Encounter Details Date Type Department Care Team (Late st Contact Info) Description 10/14/2024 Orders Only [facility] Hematology Oncology, A Department of [address] [address] [place] [address] [place] [address] [address] [place] [address] Social History Tobacco Use Types Packs/Day Years Used Date Smoking Tobacco: Former Cigarettes 1 10.2 0 11/03/1972 - 01/17/1978 Smokeless Tobacco: Former Chew Alcohol Use Standard Drinks/Week Comments Not Currently 0 (1 standard drink = 0.6 oz pur e alcohol) [facility] Utilities Answer Date Recorded In the past 12 months has th [employer], gas, oil, or water company threatened to shut off services in your home? No 08/16/2024 Social Connection and Isolat ion Panel [NHANES] Answer Date Recorded In a typical week, how many times do you talk on the phone with family, friends, or neighbors? Three times a week 10/12/2021 How often do you get togethe r with friends or relatives? More than three times a week 10/12/2021 How often do you attend chur ch or advent services? More than 4 times per year 10/12/2021 Do you belong to any clubs o r organizations such as mormon groups, unions, fraternal or athletic groups, or school groups? Yes 10/12/2021 How often do you attend meet ings of the clubs or organizations you belong to? More than 4 times per year 10/12/2021 Are you , , di vorced, , never , or living with a partner? 10/12/2021 AUDIT-C Answer Date Recorded Q1: How often do you have a drink containing alcohol? Never 10/12/2021 Q2: How many drinks containi ng alcohol do you have on a typical day when you are drinking? Patient does not drink Q3: How often do you have si x or more drinks on one occasion? Never 10/12/2021 Overall Financial Resource Strain (CARDIA) Answe r Date Recorded How hard is it for you to pa y for the very basics like food, housing, medical care, and heating? Hard 10/17/2024 PHQ-2 Answer Date Recorded Total Score 0 10/12/2021 [facility] - Occupational Stress Questionnaire Answer Date Recorded Do you feel stress - tense, restless, nervous, or anxious, or unable to sleep at night because your mind is troubled all the time - these days? To some extent 10/12/2021 Exercise Vital Sign Answer Date Recorde d On average, how many days pe r week do you engage in moderate to strenuous exercise (like a brisk walk)? 5 days 10/12/2021 On average, how many minutes do you engage in exercise at this level? 30 min 10/12/2021 PRAPARE - Transportation Answer Date Re corded In the past 12 months, has l ack of transportation kept you from medical appointments or from getting medications? No 10/03 In the past 12 months, has l ack of transportation kept you from meetings, work, or from getting things needed for daily living? No 10/17/2024 Housing Instability Answer Date Recorde d Are you worried or concerned that in the next two months you may not have stable housing that you own, rent or stay in as a part of a household? No 10/17/2024 Childcare Answer Date Recorded Do problems getting child ca re make it difficult for you to work or study? No 10/12/2021 Employment Answer Date Recorded Do you need help finding a [facility] career center and/or a training program? No 10/12/2021 Hunger Screening Answer Date Recorded Within the past 12 months we worried whether our food would run out before we got money to buy more. Sometimes True 025 Within the past 12 months th e food we bought just didn't last and we didn't have money to get more. Never True 10/17/2024 Purpose - Life Answer Date Recorded I have a purpose and direction in my life. Stron gly Agree 10/12/2021 Education Answer Date Recorded What is the highest level of school you have completed or the highest degree you have received? Some college, no degree 10/12/2021 Sex and Gender Information Value Date Recorded Sex Assigned at Not on file Legal Sex Male 11:27 AM EDT Gender Identity Male 06/01/2019 5:07 AM EDT Sexual Orientation Straight 06/01/2019 5: 07 AM EDT documented as of this encounter Plan of Treatment Upcoming Encounters Date Type Department Care Team (Late st Contact Info) Description 04/19/2025 10:30 AM EDT Office Visit Ana [facility] - Medical Oncology [facility] [place] [address] Taylor Bowen APRNSELAM [address] [place] [address], [place] [address] documented as of this encounter Goals Goal Patient Goal Type Associated Problems Recent Progress Patient-Stated? Author Home with self care General Yes Shantell Sutherland, RN Note: Evaluation of progress towards goal: Patient and plan for patient to return home with self care and support of as needed. documented as of this encounter Visit Diagnoses Not on filedocumented in this encounter Additional Health Concerns Assessment Noted Time PHQ-9 Depression Total Score: 0 10/13/19 22 1:55 PM EST documented as of this encounter Care Teams Pantry Goods Maker Relationship Specialty Start Date End Date Miguelina Richard APRN-PRIVACY SPECIALIST [address] [place] [address] PCP - General Internal Medicine 12/03/22 documented as of this encounter
--- OUTSIDE RECORDS SUMMARY | 2025-02-11 09:40 | XMS_ITS | Encounter Summary ---
Author Organization [place] Address [id number] [address] [place] [address] Care Team Providers Care Welfare Manager Name Role Phone RichardMiguelina baldwin APRN-HOME IMPROVEMENT CONTRACTOR Primary Care Pro vider Encounter Details Date Type Department Care Team (Late st Contact Info) Description 10/15/2024 Orders Only [facility] - Medical Oncology [address] [place] [phone] Chandana Barber MD [address] [facility] [address] [place], [place] [id number] Social History Tobacco Use Types Packs/Day Years Used Date Smoking Tobacco: Former Cigarettes 1 10.2 0 11/03/1972 - 01/17/1978 Smokeless Tobacco: Former Chew Alcohol Use Standard Drinks/Week Comments Not Currently 0 (1 standard drink = 0.6 oz pur e alcohol) [facility] Utilities Answer Date Recorded In the past 12 months has [employer], gas, oil, or water company threatened [...] week 10/12/2021 How often do you attend [facility] or restorationist services? More than 4 times per year 10/12/2021 Do you belong to any clubs o r organizations such as gnosticist groups, unions, fraternal or athletic groups, or [...] Answer Date Recorded Total Score 0 10/12/2021 [facility] - Occupational [...] Recorded Do you need help finding a [facility] career center and/or a training program? [...] 04/19/2025 10:30 AM EDT Office Visit Ana [facility] - Medical Oncology [address] [place] [address] Taylro Bowen APRN-HOME IMPROVEMENT CONTRACTOR [address] [place] [address], [place] [address] documented as of this encounter Goals Goal [...] documented as of this encounter Care Teams Welfare Manager Relationship Specialty Start Date End Date Miguelina Richard APRN-HOME IMPROVEMENT CONTRACTOR [address] [place] [address] PCP - General Internal Medicine 12/03/22 documented as of this encounter
--- OUTSIDE RECORDS SUMMARY | 2025-02-11 09:40 | XMS_ITS | Encounter Summary ---
Author Organization [facility] Address [address] [place] [address] Care Team Providers Care Manager Respiratory Name Role Phone Miguelina Richard SURGICAL APPLIANCE FITTER Primary Care Provider Encounter Details Date Type Department Care Team (Late st Contact Info) Description 11/30/2024 Orders Only [facility] [address] [place] [address] Regis Chen MD [address] [place] [address] Social History Tobacco Use Types Packs/Day Years Used Date Smoking Tobacco: Never Smokeless Tobacco: Never Alcohol Use Standard Drinks/Week Comments Not Currently 0 (1 standard drink = 0.6 oz pur e alcohol) [place] [facility] Answer Date Rec orded Fear of Current or Ex-Partner Not on file Emotionally Abused Not on file 09/26/2023 Physically Abused Not on file 09/26/2023 Sexually Abused Not on file 09/26/2023 Physically or Sexually Abused Not on file Sex and Gender Information Value Date Recorded Sex Assigned at Male 03/07/2023 12:44 PM EDT Legal Sex Male 11:23 PM EDT Gender Identity Male 03/07/2023 12:44 PM EDT Sexual Orientation Heterosexual or Straight 10/2022 12:44 PM EDT documented as of this encounter Plan of Treatment Upcoming Encounters Date Type Department Care Team (Late st Contact Info) Description 02/12/2025 10:20 AM EDT Office Visit [facility] [address] [place] [address] Kyle Thurston MD [address] [place] [place] [address] 02/23/2025 10:00 AM EDT Ancillary Procedure [facility] [address] [place] [facility] [address] documented as of this encounter Procedures Procedure Name Priority Date/Time Associated Diagnosis Comments CARDIAC DEVICE CHECK - REMOTE - PACEMAKER Routine 11/30/2024 12:00 AM EDT documented in this encounter Results * Cardiac device check - Remote pacemaker (11/30/2024 12:00 AM EDT) Anatomical Region Laterality Modality Other 11/30/2024 Regis Chen MD CV IMPLANTABLE CARDIAC DEVICE MA OCEDURES Final Result documented in this encounter Visit Diagnoses Not on filedocumented in this encounter Care Teams Manager Respiratory Relationship Specialty Start Date End Date Miguelina Richard NP [address] [place] [address] PCP - General Internal Medicine 09/25/23 documented as of this encounter
--- OUTSIDE RECORDS SUMMARY | 2025-02-11 09:40 | XMS_ITS | Encounter Summary ---
Author Organization [employer] [facility] Address [id number] [address] [place] [address] Care Team Providers Care Client Technologies Specialist Name Role Phone RichardMiguelina baldwin CORE DRILL OPERATOR-DIGITAL EDITOR Primary Care Pro vider Reason for Visit * Reason Onset Date Comments Afib & possible sepsis 08/18/2024 Encounter Details Date Type Department Care Team (Late st Contact Info) Description 08/18/2024 Telephone [facility] [address] [place] [id number] Yamilet Lyles Afib & possible sepsis Social History Tobacco Use Types Packs/Day Years Used Date Smoking Tobacco: Former Cigarettes 1 10.2 0 11/03/1972 - 01/17/1978 Smokeless Tobacco: Former Chew Alcohol Use Standard Drinks/Week Comments Not Currently 0 (1 standard drink = 0.6 oz pur e alcohol) [facility] Utilities Answer Date Recorded In the past 12 months has [employer], gas, oil, or water [employer] threatened to shut off services in your [...] 10/12/2021 How often do you attend chur or synagogue services? More than 4 times per year 10/12/2021 Do you belong to any clubs o r organizations such as sikhism groups, unions, fraternal or athletic groups, or [...] like food, housing, medical care, and heating? Somewhat hard 03/11/2023 PHQ-2 Answer Date Recorded Total Score 0 10/12/2021 [facility] - Occupational [...] from medical appointments or from getting medications? Yes 08/05 In the past 12 months, has l ack of transportation kept you from meetings, work, or from getting things needed for daily living? No 08/16/2024 Housing Instability Answer Date Recorde d Are you worried or concerned that in the next two months you may not have stable housing that you own, rent or stay in as a part of a household? No 08/16/2024 Childcare Answer Date Recorded Do problems getting child ca re make it difficult for you to work or study? No 10/12/2021 Employment Answer Date Recorded Do you need help finding a [facility] career center and/or a training program? No 10/12/2021 Hunger Screening Answer Date Recorded Within the past 12 months we worried whether our food would run out before we got money to buy more. Sometimes True 025 Within the past 12 months th e food we bought just didn't last and we didn't have money to get more. Sometimes True 08/16/2024 Purpose - Life Answer Date Recorded I [...] AM EDT documented as of this encounter Miscellaneous Notes * Telephone Encounter - Yamilet Lyles - 08/18/2024 2:50 AM EST Contract: PPCRD [phone] [place] Kaylie mehta consult for Afib & possible sepsis room 209 tx yamilet --I sent Abner Cuadra a secure chat messae & I routed the consult documented in this encounter Plan of Treatment Upcoming Encounters Date Type Department Care Team (Late st Contact Info) Description 04/19/2025 10:30 AM EDT [facility] [address] [place] [address] Taylor Bowen, CORE DRILL OPERATOR-DIGITAL EDITOR [address] [facility], [address] [place] [address] documented as of this encounter Goals Goal [...] documented as of this encounter Care Teams Client Technologies Specialist Relationship Specialty Start Date End Date Miguelina Richard APRN-KATALINA [address] [place] [address] PCP - General Internal Medicine 12/03/22 documented as of this encounter
--- OUTSIDE RECORDS SUMMARY | 2025-02-11 09:40 | XMS_ITS | Encounter Summary ---
Author Organization [employer] s tem Address [facility] [id number] [address] [place] [address] Care Team Providers Care Merchandise Buyer Name Role Phone Miguelina Richard APRN-INTERIOR PANELER Primary Care Pro vider Encounter Details Date Type Department Care Team (Late st Contact Info) Description 05/10/2023 Orders Only [facility] - Medical Oncology [address] [place] [address] Chandana Barber MD [address] [facility] [address] [place], [place] [id number] Social History Tobacco Use Types Packs/Day Years Used Date Smoking Tobacco: Former Cigarettes 1 5 Smokeless Tobacco: Former Chew Alcohol Use Standard Drinks/Week Comments Yes 0 (1 standard drink = 0.6 oz pur e alcohol) Social Connection and Isolat ion Panel [NHANES] Answer Date Recorded In a typical week, how many times do you talk on the phone with family, friends, or neighbors? Three times a week 10/12/2021 How often do you get togethe r with friends or relatives? More than three times a week 10/12/2021 How often do you attend chur ch or moravian services? More than 4 times per year 10/12/2021 Do you belong to any clubs o r organizations such as presybeterian groups, unions, fraternal or athletic groups, or [...] Answer Date Recorded Total Score 0 10/12/2021 [facility] Occup[facility] ional Health - Occupational Stress [...] medical appointments or from getting medications? No 02/2023 In the past 12 months, has l ack of transportation kept you from meetings, work, or from getting things needed for daily living? No 03/11/2023 Housing Instability Answer Date Recorde d Are you worried or concerned that in the next two months you may not have stable housing that you own, rent or stay in as a part of a household? No 03/11/2023 Childcare Answer Date Recorded Do problems getting child ca re make it difficult for you to work or study? No 10/12/2021 Employment Answer Date Recorded Do you need help finding a [facility] career center and/or a training program? No 10/12/2021 Hunger Screening Answer Date Recorded Within the past 12 months we worried whether our food would run out before we got money to buy more. Sometimes True 023 Within the past 12 months th e food we bought just didn't last and we didn't have money to get more. Never True 03/11/2023 Purpose - Life Answer Date Recorded I [...] 04/19/2025 10:30 AM EDT [facility] [address] [place] [address] Taylor Bowen, GRINDER AND HONER OPERATOR AUTOMATIC-INTERIOR PANELER [address] [place] [address], [address] [place] [id number] documented as of this encounter Visit Diagnoses Not on filedocumented in this encounter Additional Health Concerns Infection Onset Date Last Indicated Resolved Time Respiratory Rule-Out 08/16/2024 08/16/2024 025 5:30 AM EST Assessment Noted Time PHQ-9 Depression Total Score: 0 10/13/19 22 1:55 PM EST documented as of this encounter Care Teams Merchandise Buyer Relationship Specialty Start Date End Date Miguelina Richard, GRINDER AND HONER OPERATOR AUTOMATIC-INTERIOR PANELER [address] [place] [address] PCP - General Internal Medicine 12/03/22 documented as of this encounter
--- OUTSIDE RECORDS SUMMARY | 2025-02-11 09:40 | XMS_ITS | Encounter Summary ---
Author Organization [facility] Address [address] [place] [address] Care Team Providers Care Manager Life Name Role Phone Izzy Ortiz MD Primary Care Provider [phone] Source Comments In the event this information is protected by the Federal Confidentiality of Alcohol and Drug AbusePatient Records regulations: The Federal rules restrict any use of the information to criminally investigate or prosecute any alcohol or drug abuse patient.[facility] Encounter Details Date Type Department Care Team (Late st Contact Info) Description 08/24/2015 Get Medical Advice Neurology [address] [place] [address] Jennifer Miller MD [address] [place] [address] [id number] Test Result Question Social History Tobacco Use Types Packs/Day Years Used Date Smoking Tobacco: Former Cigarettes Q uit: 05/30/1981 Alcohol Use Standard Drinks/Week Comments Yes 6 (1 standard drink = 0.6 oz pur e alcohol) Sex and Gender Information Value Date Recorded Sex Assigned at Not on file Legal Sex Male 10:13 AM EDT Gender Identity Not on file Sexual Orientation Not on file documented as of this encounter Functional Status * Are you deaf or do you have serious difficulty hearing? Answer Date of Assessment Author No 03/30/2014 11:25 AM EDT Claribel Guidry Ma * Are you blind or do you have serious difficulty seeing, even when wearing glasses? Answer Date of Assessment Author No 03/30/2014 11:25 AM EDT Claribel Guidry Ma * Do you have serious difficulty walking or climbing stairs? Answer Date of Assessment Author No 03/30/2014 11:25 AM EDT Claribel Guidry Ma * Do you have difficulty dressing or bathing? Answer Date of Assessment Author No 03/30/2014 11:25 AM EDT Claribel Guidry Ma * Because of a physical, mental, or emotional condition, do you have difficulty doing errands alone such as visiting a doctor's office or shopping? Answer Date of Assessment Author No 03/30/2014 11:25 AM EDClaribel Barba Ma documented as of this encounter Mental Status * Because of a physical, mental, or emotional condition, do you have serious difficulty concentrating, remembering, or making decisions? Answer Entry Date Author No 03/30/2014 11:25 AM EDT Claribel Guidry Ma documented in this encounter Miscellaneous Notes * Telephone Encounter - Adilene Driscoll - 08/24/2015 10:08 AM EST Message noted. I will have PSR/MA at [facility] to call patient to schedule follow up appt with Dr. Miller to review testing. Adilene Driscoll RN documented in this encounter Plan of Treatment Not on file documented as of this encounter Visit Diagnoses Not on filedocumented in this encounter Care Teams Manager Life Relationship Specialty Start Date End Date Izzy Ortiz MD [address] [place] [address] PCP - General Family Medicine 03/29/14 documented as of this encounter
--- OUTSIDE RECORDS SUMMARY | 2025-02-11 09:40 | XMS_ITS | Encounter Summary ---
Author Organization [facility] Address [address] [place] [address] Care Team Providers Care Map Compiler Name Role Phone Esthela Mahajan MD Primary Care Provider [phone] Reshma Oneil RN Unavailable [phone] Miguelina Richard FINANCE ADMIN Unavailable [phone] Esthela Mahajan MD Unavailable Encounter Details Date Type Department Care Team (Late st Contact Info) Description 01/21/2025 Results Follow-Up [facility] [address] [place] [phone] Miguelina Richard FINANCE ADMIN [address] [place], [place] [id number] Social History Tobacco Use Types Packs/Day Years Used Date Smoking Tobacco: Former Cigarettes 1 4 0 11/03/1973 - 06/05/1977 Smokeless Tobacco: Former Snuff, Chew Quit: 08/05/1979 Alcohol Use Standard Drinks/Week Comments Not Currently 24 (1 standard drink = 0.6 oz pu re alcohol) caffeine: 2-4 cups/day B1300 Health Literacy Answer Date Recor ded How often do you need to hav e someone help you when you read instructions, pamphlets, or other written material from your doctor or pharmacy? Never 06/02/2024 Humiliation, Afraid, Rape, and Kick questionnair e Answer Date Recorded Within the last year, have y ou been afraid of your partner or ex-partner? No 02/11/2023 Within the last year, have y ou been humiliated or emotionally abused in other ways by your partner or ex-partner? No Within the last year, have y ou been kicked, hit, slapped, or otherwise physically hurt by your partner or ex-partner? No 02/11/2023 Within the last year, have y ou been raped or forced to have any kind of sexual activity by your partner or ex-partner? No 02/11/2023 Social Connection and Isolat ion Panel [NHANES] Answer Date Recorded In a typical week, how many times do you talk on the phone with family, friends, or neighbors? Twice a week 06/02/2024 How often do you get togethe r with friends or relatives? Three times a week 06/02/2024 How often do you attend [facility] or mu-ism services? More than 4 times per year 06/02/2024 Do you belong to any clubs o r organizations such as religious groups, unions, fraternal or athletic groups, or school groups? Yes 06/02/2024 How often do you attend meet ings of the clubs or organizations you belong to? More than 4 times per year 06/02/2024 Are you , , di vorced, , never , or living with a partner? 06/02/2024 AUDIT-C Answer Date Recorded Q1: How often do you have a drink containing alcohol? Never 06/02/2024 Q2: How many drinks containi ng alcohol do you have on a typical day when you are drinking? Patient does not drink Q3: How often do you have si x or more drinks on one occasion? Never 06/02/2024 Overall Financial Resource Strain (CARDIA) Answe r Date Recorded How hard is it for you to pa y for the very basics like food, housing, medical care, and heating? Hard 06/02/2024 PHQ-2 Answer Date Recorded Patient Health Questionnaire-2 Score 1 09/29/2024 [facility] - Occupational Stress Questionnaire Answer Date Recorded Do you feel stress - tense, restless, nervous, or anxious, or unable to sleep at night because your mind is troubled all the time - these days? To some extent 06/02/2024 Exercise Vital Sign Answer Date Recorde d On average, how many days pe r week do you engage in moderate to strenuous exercise (like a brisk walk)? 2 days 06/02/2024 On average, how many minutes do you engage in exercise at this level? 30 min 06/02/2024 Hunger Vital Sign Answer Date Recorded Within the past 12 months, y ou worried that your food would run out before you got the money to buy more. Sometimes true Within the past 12 months, t he food you bought just didn't last and you didn't have money to get more. Sometimes true PRAPARE - Transportation Answer Date Re corded In the past 12 months, has l ack of transportation kept you from medical appointments or from getting medications? No 05/06 In the past 12 months, has l ack of transportation kept you from meetings, work, or from getting things needed for daily living? No 06/02/2024 Housing Stability Vital Sign Answer Elvis e Recorded In the last 12 months, was t here a time when you were not able to pay the mortgage or rent on time? Yes 02/11/2023 In the last 12 months, how many places have you lived? 18 02/11/2023 In the last 12 months, was t here a time when you did not have a steady place to sleep or slept in a nursing home (including now)? No 02/11/2023 Housing Stability Vital Sign Answer Elvis e Recorded In the last 12 months, was t here a time when you were not able to pay the mortgage or rent on time? Yes 06/02/2024 In the past 12 months, how m any times have you moved where you were living? 0 06/02/2024 At any time in the past 12 m [facility], were you homeless or living in a nursing home (including now)? No 06/02/2024 Sex and Gender Information Value Date Recorded Sex Assigned at Male 12/20/2022 3:16 PM EDT Legal Sex Male 7:25 PM EDT Gender Identity Male 12/20/2022 3:16 PM EDT Sexual Orientation Straight 12/20/2022 3: 16 PM EDT documented as of this encounter Miscellaneous Notes * Result Encounter Note - Miguelina Richard NP - 01/21/2025 4:32 PM EDT Let patient know his hgba1c results has increased a little and to decrease carbs and sugars. His urine micro is stable. documented in this encounter Plan of Treatment Upcoming Encounters Date Type Department Care Team (Late st Contact Info) Description 04/07/2025 10:00 AM EDT Office Visit [facility] [address] [facility] [place] [address] Miguelina Richard NP [address] [place] [address] documented as of this encounter Visit Diagnoses Not on filedocumented in this encounter Additional Health Concerns Assessment Noted Time PHQ-9 Depression Total Score: 2 09/03/19 24 10:00 AM EST documented as of this encounter Care Teams Map Compiler Relationship Specialty Start Date End Date Esthela Mahajan MD [address] [place] [address] PCP - General 01/02/23 Esthela Mahajan MD [address] [place] [address] PCP - Medical [place] MA 08/05/2408/04 Reshma Oneil, RN [address] [place] [address] Registered Nurse Family Medicine 02/05/24 Miguelina Richard NP [address] [place] [address] Nurse Practitioner Family Medicine 03/11/24 documented as of this encounter
--- OUTSIDE RECORDS SUMMARY | 2025-02-11 09:40 | XMS_ITS | Clinical Summary ---
Author Organization [facility] Address [address] [place] [address] Care Team Providers Care Mainframe Systems Administrator Name Role Phone Izzy Ortiz MD Primary Care Provider [phone] Allergies No known active allergies Active Problems Problem Noted Date Diagnosed Date Dog bite of eye region 06/15/2022 Bite wound 06/15/2022 Social History Tobacco Use Types Packs/Day Years Used Date Smoking Tobacco: Never Assessed Sex and Gender Information Value Date Recorded Sex Assigned at Not on file Legal Sex Male 11:55 PM EST Gender Identity Not on file Sexual Orientation Not on file Last Filed Vital Signs Vital Sign Reading Time Taken Comments Blood Pressure 129/79 06/15/2022 6:00 AM EST Pulse 75 06/15/2022 2:12 AM EST Temperature 36.7 C (98.1 F) 06/15/2022 2:12 AM EST Respiratory Rate 19 06/15/2022 6:04 AM EST Oxygen Saturation 95% 06/15/2022 6:00 AM EST Inhaled Oxygen Concentration - - Weight 104.3 kg (230 lb) 06/15/2022 2:12 AM EST Height 188 cm (6' 2 ) 06/15/2022 2:12 AM EST Body Mass Index 29.53 06/15/2022 2:12 AM EST Plan of Treatment Health Maintenance Due Date Last Done Comments Depression Screen 1965 Hepatitis C screen 10/11/1971 Lipids 1993 Colonoscopy 1998 Colorectal Cancer Screen 1998 FIT/FOBT: Average risk 1998 Fecal-DNA (Cologuard): [place] ge risk 1998 Sigmoidoscopy/CT colonography 1998 Pneumococcal 50+ years Vacci ne (1 of 1 - PCV) 10/11/2003 Shingles vaccine (1 of 2) 10/11/2003 Annual Wellness Visit (Medicare) 07/01/2023 COVID-19 Vaccine (1 - 2023-2 5 season) 2024 Flu vaccine (#1) 03/05/2025 Respiratory Syncytial Virus (RSV) or age 60 yrs+ (1 - 1-dose 75+ series) 2028 DTaP/Tdap/Td vaccine (4 - Td or Tdap) 06/15/2032 06/15/2022, 03/01/2020, 11/04/2015 Hepatitis A vaccine Aged Out No longe r eligible based on patient's age to complete this topic Hepatitis B vaccine Aged Out No longe r eligible based on patient's age to complete this topic Hib vaccine Aged Out No longer eligi ble based on patient's age to complete this topic Meningococcal (ACWY) vaccine Aged Out No longer eligible based on patient's age to complete this topic Meningococcal B vaccine Aged Out No l onger eligible based on patient's age to complete this topic Polio vaccine Aged Out No longer elig ible based on patient's age to complete this topic Insurance MEDICARE AETNA SENIOR MEDICARE SUPP Advance Directives * Full Code (Latest Code Status on File) Date Activated Date Inactivated Comments 06/15/2022 5:30 AM 06/15/2022 4:29 PM Care Teams Mainframe Systems Administrator Relationship Specialty Start Date End Date Izzy Ortiz MD [address] [place] [address] PCP - General Family Medicine 06/15/22
--- OUTSIDE RECORDS SUMMARY | 2025-02-11 09:40 | XMS_ITS | Encounter Summary ---
Author Organization [employer] Address [id number] [address] [place] [address] Care Team Providers Care Shirring Machine Operator Name Role Phone Miguelina Richard APRN-GARBAGE WORKER Primary Care Pro vider Encounter Details Date Type Department Care Team (Late st Contact Info) Description 05/24/2022 Orders Only [facility] - Medical Oncology [address] [place] [address] Roxy Eastman, EYAL Primary malignant neoplasm of prostate (CMS-HCC) (Primary Dx) Social History Tobacco Use Types Packs/Day Years [...] often do you attend chur ch or muslim services? More than 4 times per year [...] housing, medical care, and heating? Somewhat hard 10/12/2021 PHQ-2 Answer Date Recorded Total Score 0 10/12/2021 [facility] of Occupat ional Health - Occupational Stress [...] getting things needed for daily living? No 10/12/2021 Childcare Answer Date Recorded Do problems getting child ca re make it difficult for you to work or study? No 10/12/2021 Employment Answer Date Recorded Do you need help finding a l al career center and/or a training program? No 10/12/2021 Purpose - Life Answer Date Recorded I [...] Orientation Straight 06/01/2019 5: 07 AM EDT COVID-19 Exposure Response Date Recorded In the last month, have you been in contact with someone who was confirmed or suspected to have Coronavirus / COVID-19? No / Unsure 05/24/2022 1:51 PM EDT documented as of this encounter Plan of Treatment Upcoming Encounters Date Type Department Care Team (Late st Contact Info) Description 04/19/2025 10:30 AM EDT Office Visit [facility] - Medical Oncology [address] [place] [address] Taylor Bowen APRN-GARBAGE WORKER [address] [place] [address], [address] [place] [address] documented as of this encounter Visit Diagnoses Diagnosis Primary malignant neoplasm of prostate (CMS-HCC)- Primary documented in this encounter Additional Health Concerns Infection Onset Date Last Indicated Resolved Time Respiratory Rule-Out 08/16/2024 08/16/2024 025 5:30 AM EST Assessment Noted Time PHQ-9 Depression Total Score: 0 10/13/19 22 1:55 PM EST documented as of this encounter Care Teams Shirring Machine Operator Relationship Specialty Start Date End Date Miguelina Richard APRN-GARBAGE WORKER [address] [place] [address] PCP - General Internal Medicine 12/03/22 documented as of this encounter
--- OUTSIDE RECORDS SUMMARY | 2025-02-11 09:40 | XMS_ITS | Encounter Summary ---
Author Organization [facility] Address [address] [place] [address] Care Team Providers Care Hat Braider Name Role Phone Esthela Mahajan MD Unavailable [phone] Esthela Mahajan MD Primary Care Provider [phone] Reshma Oneil RN Unavailable [phone] Miguelina Richadr STRENGTH AND CONDITIONING COACH Unavailable Esthela Mahajan MD Unavailable [phone] Reason for Visit * Reason Comments Med Refill Encounter Details Date Type Department Care Team (Late st Contact Info) Description 02/16/2023 Refill [facility] [address] [place] [phone] Esthela Mahajan MD [address] [place], [place] [id number] Type 2 diabetes mellitus without complication, without long-term current use of insulin (HCC) (Primary Dx) Social History Tobacco Use Types Packs/Day Years Used Date Smoking Tobacco: Former Cigarettes Smokeless Tobacco: Never Alcohol Use Standard Drinks/Week Comments Not Currently 0 (1 standard drink = 0.6 oz pur e alcohol) caffeine: 2-3 cups/day Humiliation, Afraid, Rape, and Kick questionnair e [...] the phone with family, friends, or neighbors? More than three times a week 02/11/2023 How often do you get togethe r with friends or relatives? Twice a week 02/11/2023 How often do you attend chur or judaism services? More than 4 times per year 02/11/2023 Do you belong to any clubs o r organizations such as adventism groups, unions, fraternal or athletic groups, or school groups? Yes 02/11/2023 How often do you attend meet ings of the clubs or organizations you belong to? More than 4 times per year 02/11/2023 Are you , , di vorced, , never , or living with a partner? 02/11/2023 AUDIT-C Answer Date Recorded Q1: How often do you have a drink containing alcohol? Never 02/11/2023 Q2: How many drinks containi ng alcohol do you have on a typical day when you are drinking? Patient does not drink Q3: How often do you have si x or more drinks on one occasion? Never 02/11/2023 Overall Financial Resource Strain (CARDIA) Answe r Date Recorded How hard is it for you to pa y for the very basics like food, housing, medical care, and heating? Somewhat hard 02/11/2023 [facility] Occupat ional Health - Occupational Stress Questionnaire Answer Date Recorded Do you feel stress - tense, restless, nervous, or anxious, or unable to sleep at night because your mind is troubled all the time - these days? To some extent 02/11/2023 Exercise Vital Sign Answer Date Recorde d On average, how many days pe r week do you engage in moderate to strenuous exercise (like a brisk walk)? 2 days 02/11/2023 On average, how many minutes do you engage in exercise at this level? 20 min 02/11/2023 Hunger Vital Sign Answer Date Recorded Within the past 12 months, y ou worried that your food would run out before you got the money to buy more. Sometimes true Within the past 12 months, t he food you bought just didn't last and you didn't have money to get more. Never true 05/2023 PRAPARE - Transportation Answer Date Re corded In the past 12 months, has l ack of transportation kept you from medical appointments or from getting medications? No 02/02 In the past 12 months, has l ack of transportation kept you from meetings, work, or from getting things needed for daily living? No 02/11/2023 Housing Stability Vital Sign Answer [...] place to sleep or slept in a residential (including now)? No 02/11/2023 Sex and Gender Information Value Date Recorded Sex Assigned at Male 12/20/2022 3:16 PM EDT Legal Sex Male 7:25 PM EDT Gender Identity Male 12/20/2022 3:16 PM EDT Sexual Orientation Straight 12/20/2022 3: 16 PM EDT COVID-19 Exposure Response Date Recorded In the last 10 days, have yo u been in contact with someone who was confirmed or suspected to have Coronavirus/COVID-19? No / Unsure 02/11/2023 8:40 AM EDT documented as of this encounter Miscellaneous Notes * Telephone Encounter - Esthela Mahajan MD - 02/18/2023 5:31 PM EDT Refills sent. documented in this encounter Plan of Treatment Upcoming Encounters Date Type Department Care Team (Late st Contact Info) Description 04/07/2025 10:00 AM EDT Office Visit [facility] [address] [place] [address] Miguelina Richard NP [address] [place] [address] documented as of this encounter Visit Diagnoses Diagnosis Type 2 diabetes mellitus without complication, without long-term current use of insulin (HCC)- Primary documented in this encounter Care Teams Hat Braider Relationship Specialty Start Date End Date Esthela Mahajan MD [address] [place] [address] PCP - Devoted 08/05/22 08/04/24 Esthela Mahajan MD [address] [place] [address] PCP - General 01/02/23 Esthela Mahajan MD [address] [place] [address] PCP - Medical [place] MA 08/05/2408/04 Reshma Oneil, RN [address] [place] [address] Registered Nurse Family Medicine 02/05/24 Miguelina Richard, STRENGTH AND CONDITIONING COACH [address] [place] [address] Nurse Practitioner Family Medicine 03/11/24 documented as of this encounter
--- OUTSIDE RECORDS SUMMARY | 2025-02-11 09:40 | XMS_ITS | Clinical Summary ---
Author Organization [facility] Address [address] [place] [address] Care Team Providers Care Account Executive [employer] Name Role Phone Esthela Mahajan MD Primary Care Provider [phone] Reshma Oneil RN Unavailable [phone] Miguelina Richard NP Unavailable [phone] Esthela Mahajan MD Unavailable [phone] Allergies No known active allergies Medications Apalutamide (Erleada) 60 MG tablet Take by mouth. Activ e Multiple Vitamin (multivitamin) tablet Take 1 tablet by mouth in the morning. Active cyanocobalamin (Vitamin B-12) 100 MCG tablet Take 100 mcg by mouth in the morning. Active fluticasone (Flonase) 50 MCG/ACT nasal sprayIndications:S easonal allergic rhinitis due to other allergic trigger Administer 1-2 sprays into each nostril in the morning. Shake gently. Before first use, prime pump. After use, clean tip and replace cap.. 16 g 2 02/12/20 23 Active dapagliflozin (Farxiga) 5 MG Take 5 mg by mouth in the morning and in the evening Active omega-3 1000 MG capsule capsule Take 1,200 mg by mouth in the morning. Active apixaban (Eliquis) 5 MG tablet Take 5 mg by mouth in the morning and 5 mg in the evening. 08/19/19 25 Active dilTIAZem CD (Cardizem CD) 240 MG 24 hr capsule Take 240 mg by mouth in the morning. 08/21/19 25 Active Continuous Glucose Sensor (FreeStyle Rae 3 Plus Sensor) miscIndications:Ty pe 2 diabetes mellitus without complication, unspecified whether manager law insulin use (HCC) 1 Application every 14 (fourteen) days 6 each 3 10/21/19 25 Active atorvastatin (Lipitor) 40 MG tabletIndications: Mixed hyperlipidemia TAKE 1/2 (ONE-HALF) TABLET BY MOUTH TWICE DAILY (NOON AND EVENING) 90 tablet 12/11/19 25 Active metFORMIN XR (Glucophage-XR) 500 MG 24 hr tabletIndications: Type 2 diabetes mellitus without complication, without long-term current use of insulin (HCC) Take 1 tablet (500 mg) by mouth in the evening. Take with meals Do not crush, chew, or split. 90 tablet 1 01/26/20 25 Active metFORMIN XR (Glucophage-XR) 500 MG 24 hr tabletIndications: Type 2 diabetes mellitus without complication, without long-term current use of insulin (HCC) TAKE 1 TABLET BY MOUTH ONCE DAILY DO NOT CRUSH CHEW OR SPLIT 90 tablet 10/31/19 25 025 Discontin ued(Reord er) metFORMIN XR (Glucophage-XR) 500 MG 24 hr tabletIndications: Type 2 diabetes mellitus without complication, without long-term current use of insulin (HCC) Take 1 tablet (500 mg) by mouth in the evening. Take with meals Do not crush, chew, or split. 90 tablet 1 01/21/20 25 025 Discontin ued(Reord er) Active Problems Problem Noted Date Diagnosed Date Cardiac pacemaker in situ 03/06/2024 Overview (03/11/2024): Last Assessment & Plan: Device interrogation q 6months Aortic root dilatation 09/25/2023 PAF (paroxysmal atrial fibrillation) 03/31/2023 Overview (12/10/2023): Last Assessment & Plan: -last seen 08/2021 per device report -CHADVASC2 - 0, on ASA Arthritis 02/11/2023 Hallux valgus (acquired), left foot 02/11/2023 History of prostatectomy 02/11/2023 Mixed hyperlipidemia 02/11/2023 Neuropathy 02/11/2023 Sinus node dysfunction 02/11/2023 Type 2 diabetes mellitus wit hout complication, without long-term current use of insulin 02/11/2023 Primary malignant neoplasm of prostate 7 Overview (02/11/2023): ==== 05/02/2020 ==== psa still undetectable. On androgen deprivation as well as apalutamide under the auspices of Medical Oncology. ==== 06/03/2019 ==== clinical T1c prostate carcinoma secondary to PSA above 4. Then underwent radical prostatectomy. Abigail 4 + 4 equals 8. Mucinous features. Margins negative. Lymph nodes negative. Had pretty prompt return to urinary control. Has ED. Post prostatectomy PSA was rising. Patient underwent adjuvant radiation therapy with 2 years of hormonal ablation with Lupron and Casodex. PSA May 21 was undetectable. PSA November 2017 0.18. ASHLEY is empty prostatic fossa Plan: Patient needs up-to-date PSA as well as testosterone level. ====08/19/19==== currently following with Oncology, scheduled for follow-up next week. PSA down to 0.56 compared to 9.40. Testosterone 06/03/2019 was 1.95. Aortic valve disorder 07/14/2014 Overview (02/11/2023): MILD Carcinoma in situ of prostate 07/06/2014 Palpitations 07/06/2014 Cervical spondylosis without myelopathy 03/30/20 14 Resolved Problems Problem Noted Date Diagnosed Date Resolved Date Aortic insufficiency 02/11/2023 024 Balance disorder 02/11/2023 09/12/2023 Bite wound 06/15/2022 10/06/2024 Dog bite of eye region 06/15/202210/06 Hematuria, gross 06/03/2019 09/12/2023 Overview (02/11/2023): ==== 05/02/2020 ==== no interval gross hematuria. Cytology today. ==== 06/03/2019 ==== in addition lower urinary tract symptoms patient with history gross hematuria. Distant history of smoking. Patient did have radiation therapy. Upper tracts cleared by recent CT scan. Direct visualization Plan: Given the gross hematuria will evaluate the urinary tract with diagnostic endoscopy cystoscopy as well as cytology ====08/19/19==== cytology was negative. s/p cysto/dilatation of vesical neck contracture 07/15/2019. It was noted that there were some slight radiation changes. He reports he is doing much better since the procedure. Last Assessment & Plan: Follow-up in 3 months or sooner if recurrent hematuria Lower urinary tract symptoms (LUTS) 06/03/2019 09/12/2023 Overview (02/11/2023): ==== 05/02/2020 ==== Established problem, worsening. AUA SS 29/4. He had done well until about October now has worsening lower urinary tract symptoms. We can urinary stream. Frequency nocturia x3. Urgency ==== 06/03/2019 ==== approximately 2 month history of a very weak urinary stream. Patient has sit to void. Difficult time emptying. Concurrent urgency frequency as well. The blood gross hematuria as well. Has had gross hematuria on and off since 2014 AUA Symptom Score 22/3 PLAN: Given the prior radical prostatectomy as well as a solid radiation therapy with now weekend urinary stream as well as hematuria needs evaluation urinary tract. Could potentially have bladder neck contracture. Will start with CT urogram cytology and cystoscopy ====08/19/19==== symptoms much improved following cystoscopy/dilatation of vesical neck contracture 07/15/2019. I told him to call if symptoms return as he may need to be set up for more formal dilatation. Last Assessment & Plan: Roughly similar to previous---prior to dilation of VNC. 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 Understands he would most likely have a catheter postprocedure and in order to keep it more open /higher likelihood of keeping open he would need to do intermittent self catheterization Chest pain 07/06/2014 10/06/2024 Conduction disorder of the heart 06/30/2014 09/12/2023 Skin sensation disturbance 06/30/2014 0 09/12/2023 Dyspnea 06/30/2014 10/06/2024 Dizziness 03/30/2014 09/12/2023 Encounters Date Type Department Care Team Description 01/25/2025 Refill [facility] [address] [place] [phone] Thuy Gomez MA Type 2 diabetes mellitus without complication, without long-term current use of insulin ([facility]) 01/22/2025 Telephone [facility] [address] [place] [phone] Treva Campbell MA [facility] 01/21/2025 Results Follow-Up [facility] [address] [place] [phone] Miguelina Richard NP 01/21/2025 [facility] [address] [place] [phone] Miguelina Richard NP 01/20/2025 Refill [facility] [address] [place] [phone] Thuy Gomez MA Type 2 diabetes mellitus without complication, without long-term current use of insulin ([facility]) 01/19/2025 Patient Outreach [place] [id number] [place] [address] Ksenia Khanna LSW 01/15/2025 Patient Outreach [facility] [id number] [place] [address] Reshma Oneil RN 12/10/2024 [facility]ill [facility] [address] [place] [address] Richard, Imguelina A, FIELD SUPPORT SPECIALIST Mixed hyperlipidemia 12/03/2024 Patient Outreach [facility] [address] [place] [address] Reshma Oneil, EYAL 11/13/2024 Patient Outreach [facility] [address] [place] [address] Reshma Oneil, RN from Last 3 Months Immunizations Immunization Administration Dates Next Due Pneumococcal Conjugate PCV 13 09/22/2024 Pneumococcal conjugate vacci ne, 21 valent (PCV21), polysaccharide SLL112 conjugate, preservative free 09/22/2024 Tdap 06/15/2022,03/01/2020,11/04/2015 Zoster, Recombinant 09/22/2024 Social History Tobacco Use Types Packs/Day Years [...] week 06/02/2024 How often do you attend chur ch or scientology services? More than 4 times per year 06/02/2024 Do you belong to any clubs o r organizations such as baptism groups, unions, fraternal or athletic groups, or [...] Recorded Patient Health Questionnaire-2 Score 1 09/29/2024 [facility] [place] of Occupat ional Health - Occupational Stress [...] place to sleep or slept in a [place] facility (including now)? No 02/11/2023 Housing Stability Vital Sign Answer Elvis e Recorded In the last 12 months, was t here a time when you were not able to pay the mortgage or rent on time? Yes 06/02/2024 In the past 12 months, how m any times have you moved where you were living? 0 06/02/2024 At any time in the past 12 m [facility], were you homeless or living in a [place] facility (including now)? No 06/02/2024 Sex and Gender Information Value Date Recorded Sex Assigned at Male 12/20/2022 3:16 PM EDT Legal Sex Male 7:25 PM EDT Gender Identity Male 12/20/2022 3:16 PM EDT Sexual Orientation Straight 12/20/2022 3: 16 PM EDT Last Filed Vital Signs Vital Sign Reading Time Taken Comments Blood Pressure 112/70 10/06/2024 9:30 AM EST Pulse 88 09/01/2024 1:34 PM EST Temperature 36.3 C (97.3 F) 10/06/2024 9:30 AM EST Respiratory Rate 18 09/01/2024 1:34 PM EST Oxygen Saturation 97% 09/01/2024 1:34 PM EST Inhaled Oxygen Concentration - - Weight 94.3 kg (208 lb) 10/06/2024 9:30 AM EST Height 182.9 cm (6') 09/01/2024 1:34 PM EST Body Mass Index 28.21 09/01/2024 1:34 PM EST Plan of Treatment Upcoming Encounters Date Type Department Care Team (Late st Contact Info) Description 04/07/2025 10:00 AM EDT Office Visit [facility] [address] [place] [phone] Miguelina Richard NP [address] [place] [address] Health Maintenance Due Date Last Done Comments CT Colonography 1953 Colonoscopy 1953 FIT 1953 FOBT 1953 Sigmoidoscopy 1953 Pneumococcal Vaccine: 65+ Ye ars (2 of 2 - PPSV23) 11/17/2024 09/22/2024 Influenza Vaccine (#1) 2025 Diabetes: Hemoglobin A1C 04/22/2025 025, 08/16/2024, 06/09/2024, Additional history exists Diabetes: Retinopathy Screening 06/18/2025 Medicare Annual Wellness (AWV) 10/06/2025 0 10/06/2024, 10/06/2024, 09/03/2023, Additional history exists Diabetes: Urine Protein Screening 01/20/2026 025 Colorectal Cancer Screening 01/27/2027 FIT-DNA 01/27/2027 01/28/2024 Procedures Procedure Name Priority Date/Time Associated Diagnosis Comments MICROALBUMIN / CREATININE URINE RATIO Routine 01/20/2025 10:28 AM EDT Type 2 diabetes mellitus without complication, without long-term current use of insulin (HCC) HEMOGLOBIN A1C Routine 01/20/2025 10:19 AM EDT Type 2 diabetes mellitus without complication, unspecified whether chcf insulin use (HCC) LAB COLOGUARD COLON CANCER SCREEN Routine 01/28/2024 5:10 AM EDT Screening for colon cancer COLOR FUNDUS PHOTOGRAPHY - OU - BOTH EYES Routine 06/18/2023 2:47 PM EST from Last 3 Months or Most Recently Relevant to Health Maintenance Results * Microalbumin / creatinine, urine ratio (01/20/2025 10:28 AM EDT) CREATININE, RANDOM URINE 162 20 - 320 mg/dL [facility] ALBUMIN, URINE 0.7 See Note: mg/dL [facility] Comment: Reference Range: Reference Range Not established ALBUMIN/CREATININE RATIO, RANDOM URINE 4 <30 mg/g creat [facility] Comment: The ADA defines abnormalities in albumin excretion as follows: Albuminuria Category Result (mg/g creatinine) Normal to Mildly increased <30 Moderately increased 30-299 Severely increased > OR = 300 The ADA recommends that at least two of three specimens collected within a 3-6 month period be abnormal before considering a patient to be within a diagnostic category. Urine Urine specimen obtained by clean catch procedure / Unknown 01/20/2025 10:28 AM EDT 01/20/2025 3:40 PM EDT Narrative Resulting Agency Comment Performing Organization Information Site ID: QPT Name: [facility] Address: [address] [place] [address], [address] [place] [id number] Director: Oscar Beckman MD Miguelina Richard FIELD SUPPORT SPECIALIST LAB URINE ORDERABLES Fi nal Result [facility] * (ABNORMAL) Hemoglobin A1c (01/20/2025 10:19 AM EDT) Hemoglobin A1C 7.2(H) <5.7 % [facility] Comment: For someone without known diabetes, a hemoglobin [...] A1c for diagnosis of diabetes for children. Blood Venous blood specimen / Unknown 01/20/2025 10:19 AM EDT 01/20/2025 10:19 AM EDT Narrative Resulting Agency Comment Performing Organization Information Site ID: QPT Name: [facility] Address: [address] [place] [address], [address] [place] [phone] Director: Oscar Beckman MD Miguelina Musa Jose Manuel FIELD SUPPORT SPECIALIST LAB BLOOD ORDERABLES Fi nal Result [facility] * Cologuard?? colon cancer screening (01/28/2024 5:10 AM EDT) NONINV COLON CA DNA+OCC BLD SCRN STL-IMP Negative Negative 01/31/2024 8:16 PM EDT [email or web address] (CLIA #:[id number]) Comment: NEGATIVE TEST RESULT. A negative Cologuard result indicates a low likelihood that a colorectal cancer (CRC) or advanced adenoma (adenomatous polyps with more advanced pre-malignant features) is present. The chance that a person with a negative Cologuard test has a colorectal cancer is less than 1 in 1500 (negative predictive value >99.9%) or has an advanced adenoma is less than 5.3% (negative predictive value 94.7%). These data are based on a prospective cross-sectional study of 10,000 individuals at average risk for colorectal cancer who were screened with both Cologuard and colonoscopy. (Ryan Griffin et al, N Engl J Med 2014;370(14):3864-9815) The normal value (reference range) for this assay is negative. COLOGUARD RE-SCREENING RECOMMENDATION: Periodic colorectal cancer screening is an important part of preventive healthcare for asymptomatic individuals at average risk for colorectal cancer. Following a negative Cologuard result, the [place] Cancer Society and U.S. Multi-Society Task Force screening guidelines recommend a Cologuard re-screening interval of 3 years. References: [place] [employer] Guideline for Colorectal Cancer Screening: https://www.cancer.org/cancer/tvful-shooxu-guqkgc/myvgytpgp-aizwzdpzn-wnbuuks/ac s-rec ommendations.html.; Jay DK, Irena CR, Carol HolguinK, Colorectal Cancer Screening: Recommendations for Physicians and Patients from the U.S. Multi-Society Task Force on Colorectal Cancer Screening , Am J Gastroenterology 2017; 112:7642-2819. TEST DESCRIPTION: Composite algorithmic analysis of stool DNA-biomarkers with hemoglobin immunoassay. Quantitative values of individual biomarkers are not reportable and are not associated with individual biomarker result reference ranges. Cologuard is intended for colorectal cancer screening of adults of either sex, 45 years or older, who are at average-risk for colorectal cancer (CRC). Cologuard has been approved for use by the U.S. FDA. The performance of Cologuard was established in a cross sectional study of average-risk adults aged 50-84. Cologuard performance in patients ages 45 to 49 years was estimated by sub-group analysis of near-age groups. Colonoscopies performed for a positive result may find as the most clinically significant lesion: colorectal cancer [4.0%], advanced adenoma (including sessile serrated polyps greater than or equal to 1cm diameter) [20%] or non- advanced adenoma [31%]; or no colorectal neoplasia [45%]. These estimates are derived from a prospective cross-sectional screening study of 10,000 individuals at average risk for colorectal cancer who were screened with both Cologuard and colonoscopy. (Ryan Griffin et al, N Engl J Med 2014;370(14):0645-2728.) Cologuard may produce a false negative or false positive result (no colorectal cancer or precancerous polyp present at colonoscopy follow up). A negative Cologuard test result does not guarantee the absence of CRC or advanced adenoma (pre-cancer). The current Cologuard screening interval is every 3 years. ([place] Cancer Society and U.S. Multi-Society Task Force). Cologuard performance data in a 10,000 patient pivotal study using colonoscopy as the reference method can be accessed at the following location: www.[employer]/results. Additional description of the Cologuard test process, warnings and precautions can be found at www.[employer].com. Stool specimen (specimen) 01/28/2024 5:10 AM EDT 01/29/2024 1:52 PM EDT us Esthela Mahajan MD LAB MOLECULAR DIAGNOSTICS ORD ERABLES Final Result [email or web address] (CLIA #:[id number]) [address] [place] [address], * Color Fundus Photography - OU - Both Eyes (06/18/2023 2:47 PM EST) Anatomical Region Laterality Modality Head Fundus Photograp hy Esthela Mahajan MD OPHTH PHOTOGRAPHY Final Resul t from Last 3 Months or Most Recently Relevant to Health Maintenance Insurance MEDICARE Member Subscriber Plan / Payer (Ef fective 2022-Present) Name:Nicholas Molina Member ID:[id number] Relation to Subscriber:Self Name:Nicholas Molina Subscriber ID:[id number] Payer ID:[facility] Group ID:Not on file Type:Medicare Address: [place] [phone] [employer] Care Teams Account Executive Metal[employer] Relationship Specialty Start Date End Date Esthela Mahajan MD [address] [place] [address] PCP - General 01/02/23 Esthela Mahajan MD [address] [place] [address] PCP - Medical [place] 08/05/2408/04 Reshma Oneil, RN [address] [place] [address] Registered Nurse Family Medicine 02/05/24 Miguelina Richard NP [address] [place] [address] Nurse Practitioner Family Medicine 03/11/24
--- OUTSIDE RECORDS SUMMARY | 2025-02-11 09:40 | XMS_ITS | Clinical Summary ---
Author Organization [facility] Address [address] [place] [address] Care Team Providers Care Solid Waste Technician Name Role Phone Miguelina Richard FLUX TUBE ATTENDANT Primary Care Provider Allergies Active Allergy Reactions Criticality Noted Date Comments Acyclovir 06/03/2019 Medications cyanocobalamin (Vitamin B-12) 100 mcg tablet Take 100 mcg by mouth in the morning. Active famotidine (Pepcid) 20 mg tablet Take 20 mg by mouth. Active metFORMIN (Glucophage) 500 mg tablet Take 500 mg by mouth twice a day. Active apalutamide (Erleada) 60 mg tablet Take by mouth. 1 Active dapagliflozin propanediol (Farxiga) 5 mg Take 10 mg by mouth in the morning. Active atorvastatin (Lipitor) 20 mg tabletIndications:M ixed hyperlipidemia Take 1 tablet (20 mg) by mouth two times daily. 60 tablet 11 4 03/06/20 25 Active dilTIAZem CD (Cardizem CD) 240 mg 24 hr capsuleIndications: Paroxysmal atrial fibrillation (CMS/HCC) Take 1 capsule (240 mg) by mouth in the morning. 90 capsule 3 5 09/21/19 26 Active apixaban (Eliquis) 5 mg tabletIndications:P aroxysmal atrial fibrillation (CMS/HCC) Take 1 tablet (5 mg) by mouth two times daily. 60 tablet 11 5 10/31/19 26 Active Active Problems Problem Noted Date Diagnosed Date Atrial fibrillation with RVR 09/08/2024 Coronary artery disease invo lving [place] coronary artery of [place] heart without angina pectoris 09/08/2024 Cholelithiasis 08/16/2024 Diverticulosis 08/16/2024 Epigastric pain 08/16/2024 Fatty liver 08/16/2024 Gastroesophageal reflux disease without esophagi tis 08/16/2024 Mixed hyperlipidemia 08/16/2024 Right kidney stone 08/16/2024 Cardiac pacemaker in situ 03/06/2024 Assessment & Plan (03/06/2024 12:29 PM EDT): Device interrogation q 6months Aortic root dilatation 09/25/2023 Assessment & Plan (03/06/2024 3:15 PM EDT): HTN well controlled Continue ASA and will increase lipitor to 40 mg daily Will monitor with routine Echocardiogram- currently at high end of normal diameter PAF (paroxysmal atrial fibrillation) 03/31/2023 Assessment & Plan (03/31/2023 11:34 PM EDT): -last seen 08/2021 per device report -CHADVASC2 - 0, on ASA Arthritis 02/11/2023 03/20/2023 Balance disorder 02/11/2023 03/20/2023 Hallux valgus (acquired), left foot 02/11/2023 03/20/2023 History of prostatectomy 02/11/2023 023 Pure hypercholesterolemia 02/11/20232022 Assessment & Plan (03/06/2024 3:16 PM EDT): Lipid abnormalities are uncontrolled on lipitor 20 mg therefore will increase to 40 mg /day and pt prefers to take lipitor 20 mg twice a day in light of having GI side effects- diarrhea in the past. Lipids will be reassessed in 2-3 months with hepatic function Assessment & Plan (03/31/2023 11:35 PM EDT): Ct lipitor Neuropathy 02/11/2023 03/20/2023 Sinus node dysfunction 02/11/2023 Assessment & Plan (03/31/2023 11:34 PM EDT): -needs device check, will schedule Type 2 diabetes mellitus wit hout complication, without long-term current use of insulin 02/11/2023 03/20/2023 Assessment & Plan (03/31/2023 11:35 PM EDT): stable Bite wound 06/15/2022 03/20/2023 Dog bite of eye region 06/15/2022 3 Hematuria, gross 06/03/2019 03/20/2023 Overview (03/20/2023): ==== 05/02/2020 ==== no interval gross hematuria. [...] 3 months or sooner if recurrent hematuria ==== 05/02/2020 ==== no interval gross hematuria. [...] hematuria Lower urinary tract symptoms (LUTS) 06/03/2019 03/20/2023 Overview (03/20/2023): ==== 05/02/2020 ==== Established problem, worsening. AUA [...] would need to do intermittent self catheterization ==== 05/02/2020 ==== Established problem, worsening. AUA [...] would need to do intermittent self catheterization Primary malignant neoplasm of prostate 7 03/20/2023 Overview (03/20/2023): ==== 05/02/2020 ==== psa still undetectable. On [...] compared to 9.40. Testosterone 06/03/2019 was 1.95. ==== 05/02/2020 ==== psa still undetectable. On [...] compared to 9.40. Testosterone 06/03/2019 was 1.95. Valvular heart disease 07/14/2014 3 Overview (03/20/2023): MILD MILD Carcinoma in situ of prostate 07/06/2014 Chest pain 07/06/2014 03/20/2023 Dyspnea 06/30/2014 03/20/2023 Skin sensation disturbance 06/30/201403/20 Cervical spondylosis without myelopathy 03/30/20 14 03/20/2023 Dizziness 03/30/2014 03/20/2023 Resolved Problems Problem Noted Date Diagnosed Date Resolved Date Aortic insufficiency 02/11/2023 03/20/2023 024 Assessment & Plan (03/06/2024 3:14 PM EDT): Mild AI Stable without any concerning symptoms today D/W pt to call office for SOB, leg swelling/water retention, increased fatigue, or any other concerns Will monitor with routine Echocardiogram Palpitations 07/06/2014 03/20/2023 06/22/2024 Conduction disorder of the heart 06/30/2014 03/20/20 23 06/22/2024 Encounters Date Type Department Care Team Description 11/30/2024 Orders Only [facility] [address] [facility] [facility] [place] [phone] Regis Chen MD from Last 3 Months Immunizations Immunization Administration Dates Next Due Tdap 06/15/2022,03/01/2020,11/04/2015 Social History Tobacco Use Types Packs/Day Years Used Date Smoking Tobacco: Never Smokeless Tobacco: Never Tobacco Cessation:Counseling Given: Not Answered Alcohol Use Standard Drinks/Week Comments Not Currently [...] Heterosexual or Straight 10/2022 12:44 PM EDT Last Filed Vital Signs Vital Sign Reading Time Taken Comments Blood Pressure 106/68 09/08/2024 11:38 AM EST Pulse 82 09/08/2024 11:38 AM EST Temperature - - Respiratory Rate 12 03/20/2023 3:42 PM EDT Oxygen Saturation 95% 09/08/2024 11:38 AM EST Inhaled Oxygen Concentration - - Weight 94.3 kg (208 lb) 09/08/2024 11:38 AM EST Height 188 cm (6' 2 ) 09/08/2024 11:38 AM EST Body Mass Index 26.71 09/08/2024 11:38 AM EST Plan of Treatment Upcoming Encounters Date Type Department Care Team (Late st Contact Info) Description 02/12/2025 10:20 AM EDT Office Visit [facility] [address] [place] [address] Kyle Thurston MD [address] [place] [address] 02/23/2025 10:00 AM EDT Ancillary Procedure [facility] [address] [place] [address] Health Maintenance Due Date Last Done Comments CT Colonography 1955 Colonoscopy 1955 FIT-DNA 1955 FOBT 1955 Medicare Annual Wellness (AWV) 1955 Sigmoidoscopy 1955 Diabetes: Retinopathy Screening 10/11/1963 Depression Screening 1965 Fall Risk Screening 2018 COVID-19 Vaccine ( season) 2024 Zoster Vaccines (2 of 2) 11/17/2024 09/22/2024 Colorectal Cancer Screening 01/27/2025 FIT 01/27/2025 01/28/2024 Influenza Vaccine (#1) 2025 Diabetes: Hemoglobin A1C 04/22/2025 025, 06/09/2024, 09/03/2023, Additional history exists Diabetes: Urine Protein Screening 01/20/2026 01/20/2025 Adult Tetanus 06/15/2032 06/15/2022, 02/03, 11/04/2015 Pneumococcal Vaccine: 50+ Years Completed 09/22/2024, 09/22/2024 HIB Vaccines Aged Out No longer eligi ble based on patient's age to complete this topic HPV Vaccines Aged Out No longer eligi ble based on patient's age to complete this topic IPV Vaccines Aged Out No longer eligi ble based on patient's age to complete this topic Meningococcal B Vaccine Aged Out No l onger eligible based on patient's age to complete this topic Meningococcal Vaccine Aged Out No denise jose luis eligible based on patient's age to complete this topic Rotavirus Vaccines Aged Out No longer eligible based on patient's age to complete this topic Procedures Procedure Name Priority Date/Time Associated Diagnosis Comments CARDIAC DEVICE CHECK CHECK - REMOTE Routine 11/30/2024 12:36 PM EDT Pacemaker reprogramming/check CARDIAC DEVICE CHECK - REMOTE - PACEMAKER Routine 11/30/2024 12:00 AM EDT from Last 3 Months Results * CARDIAC DEVICE CHECK - REMOTE - PACEMAKER (11/30/2024 12:36 PM EDT) BSA 2.22 m2 CPACS Regis Chen MD CV IMPLANTABLE CARDIAC DEVICE TX OCEDURES Final Result CPACS * Cardiac device check - Remote pacemaker (11/30/2024 12:00 AM EDT) Anatomical Region Laterality Modality Other 11/30/2024 Regis Chen MD CV IMPLANTABLE CARDIAC DEVICE TX OCEDURES Final Result from Last 3 Months Insurance [employer] MEDIC[employer] Care Teams Solid Waste Technician Relationship Specialty Start Date End Date Miguelina Richard NP [address] [place] [address] PCP - General Internal Medicine 09/25/23
--- OUTSIDE RECORDS SUMMARY | 2025-02-11 09:40 | XMS_ITS | Encounter Summary ---
Author Organization [facility] Address [address] [place] [address] Care Team Providers Care Senior Revenue Accountant Name Role Phone Esthela Mahajan MD Primary Care Provider Reshma Oneil RN Unavailable [phone] Miguelina Richard FUEL CELL BUILDER Unavailable [phone] Esthela Mahajan MD Unavailable Encounter Details Date Type Department Care Team (Late st Contact Info) Description 01/21/2025 Results Follow-Up [facility] [address] [place] [phone] Miguelina Richard FUEL CELL BUILDER [address] [place], [place] [id number] Social History Tobacco Use Types Packs/Day Years [...] week 06/02/2024 How often do you attend [facility] or scientologist services? More than 4 times per year [...] Recorded Patient Health Questionnaire-2 Score 1 09/29/2024 [facility] of Occupat ional Health - Occupational [...] place to sleep or slept in a alf (including now)? No 02/11/2023 Housing Stability Vital Sign Answer Elvis e Recorded In the last 12 months, was t here a time when you were not able to pay the mortgage or rent on time? Yes 06/02/2024 In the past 12 months, how m any times have you moved where you were living? 0 06/02/2024 At any time in the past 12 m [facility], were you homeless or living in a alf (including now)? No 06/02/2024 Sex and Gender Information Value Date Recorded Sex Assigned at Male 12/20/2022 3:16 PM EDT Legal Sex Male 7:25 PM EDT Gender Identity Male 12/20/2022 3:16 PM EDT Sexual Orientation Straight 12/20/2022 3: 16 PM EDT documented as of this encounter Miscellaneous Notes * Result Encounter Note - Miguelina Richard NP - 01/21/2025 4:32 PM EDT See other note documented in this encounter Plan of Treatment Upcoming Encounters Date Type Department Care Team (Late st Contact Info) Description 04/07/2025 10:00 AM EDT Office Visit [facility] [address] [place] [address] Miguelina Richard NP [address] [place] [address] documented as of this encounter Visit Diagnoses Not on filedocumented in this encounter Additional Health Concerns Assessment Noted Time PHQ-9 Depression Total Score: 2 09/03/19 24 10:00 AM EST documented as of this encounter Care Teams Senior Revenue Accountant Relationship Specialty Start Date End Date Esthela Mahajan MD [address] [place] [address] PCP - General 01/02/23 Esthela Mahajan MD [address] [place] [address] PCP - Medical [place] 08/05/2408/04 Reshma Oneil, RN [address] [place] [address] Registered Nurse Family Medicine 02/05/24 Miguelina Richard NP [address] [place] [address] Nurse Practitioner Family Medicine 03/11/24 documented as of this encounter
--- OUTSIDE RECORDS SUMMARY | 2025-02-11 09:40 | XMS_ITS | Encounter Summary ---
Author Organization [facility] Address [address] [place] [address] Care Team Providers Care Cad Drafter Name Role Phone Izzy Ortiz MD Primary Care Provider [phone] Source Comments In the event this information is protected by the Federal Confidentiality of Alcohol and Drug AbusePatient Records regulations: The Federal rules restrict any use of the information to criminally investigate or prosecute any alcohol or drug abuse patient.[facility] Encounter Details Date Type Department Care Team (Late st Contact Info) Description 08/11/2015 Patient Msg Medical Records [address] [place] [address] Provider, Cc Tilt table test Saturday08/12/2015 Social History Tobacco Use Types Packs/Day Years [...] of Assessment Author No 03/30/2014 11:25 AM Claribel Thomas Ma * Do you have serious difficulty walking or climbing stairs? Answer Date of Assessment Author No 03/30/2014 11:25 AM Claribel Thomas Ma * Do you have difficulty dressing or bathing? Answer Date of Assessment Author No 03/30/2014 11:25 AM Claribel Thomas Ma * Because of a physical, mental, or emotional condition, do you have difficulty doing errands alone such as visiting a doctor's office or shopping? Answer Date of Assessment Author No 03/30/2014 11:25 AM Claribel Thomas Ma documented as of this encounter Mental Status * Because of a physical, mental, or emotional condition, do you have serious difficulty concentrating, remembering, or making decisions? Answer Entry Date Author No 03/30/2014 11:25 AM Claribel Thomas Ma documented in this encounter Plan of Treatment Not on file documented as of this encounter Visit Diagnoses Not on filedocumented in this encounter Care Teams Cad Drafter Relationship Specialty Start Date End Date Izzy Ortiz MD [address] [place] [address] PCP - General Family Medicine 03/29/14 documented as of this encounter
--- OUTSIDE RECORDS SUMMARY | 2025-02-11 09:41 | XMS_ITS | Encounter Summary ---
Author Organization [facility] [employer] Address [id number] [address] [place] [address] Care Team Providers Care Farmer And Grazier Name Role Phone RichardPeter baldwiny Dimple NG-PROFESSOR OF CHEMICAL ENGINEERING Primary Care Pro vider Encounter Details Date Type Department Care Team (Late st Contact Info) Description 07/05/2021 Orders Only [facility] [address] [place] [phone] Chandana Barber MD [address] [place] [address] Primary malignant neoplasm of prostate (CMS-HCC) (Primary Dx) Social History Tobacco Use Types Packs/Day Years Used Date Smoking Tobacco: Former Cigarettes 1 5 Smokeless Tobacco: Former Chew Alcohol Use Standard Drinks/Week Comments Yes 0 (1 standard drink = 0.6 oz pur e alcohol) Social Connection and Isolat ion Panel [NHANES] Answer Date Recorded Frequency of Communication w ith Friends and Family Twice a week 08/21/2019 Frequency of Social Gatherin gs with Friends and Family Three times a week 08/21/2019 Attends Tenriism Services More than 4 times per year 08/21/2019 Active Member of Clubs or Organizations Yes 08/21/2019 Attends Club or Organization Meetings More than 4 times per year 08/21/2019 Marital Status 08/21/2019 AUDIT-C Answer Date Recorded Frequency of Alcohol Consumption Never 08/21/2019 Average Number of Drinks Patient declined 2019 Frequency of Binge Drinking Never 08/05 Overall Financial Resource Strain (CARDIA) Answe r Date Recorded Difficulty of Paying Living Expenses Hard 08/21/2019 PHQ-2 Answer Date Recorded Total Score 6 08/21/2019 [facility] of Occupat ional Health - Occupational Stress Questionnaire Answer Date Recorded Feeling of Stress To some extent 08/21/2019 Exercise Vital Sign Answer Date Recorde d Days of Exercise per Week 3 days 2019 Minutes of Exercise per Session 90 min 08/21/2019 PRAPARE - Transportation Answer Date Re corded Lack of Transportation (Medical) No 08/21/2019 Lack of Transportation (Non-Medical) No 08/21/2019 Childcare Answer Date Recorded Childcare No 08/21/2019 Employment Answer Date Recorded Employment No 08/21/2019 Purpose - Life Answer Date Recorded Purpose and direction in life Unknown Education Answer Date Recorded What is the highest level of school you have completed or the highest degree you have received? 12th grade 08/21/2019 Sex and Gender Information Value Date Recorded Sex Assigned at Not on file Legal Sex Male 11:27 AM EDT Gender Identity Male 06/01/2019 5:07 AM EDT Sexual Orientation Straight 06/01/2019 5: 07 AM EDT documented as of this encounter Plan of Treatment Upcoming Encounters Date Type Department Care Team (Late st Contact Info) Description 04/19/2025 10:30 AM EDT Office Visit [facility] Medical Oncology [address] [place] [phone] Taylor Bowen APRN-PROFESSOR OF CHEMICAL ENGINEERING [address] [place] [address], [place] [address] documented as of this encounter Visit Diagnoses Diagnosis Primary malignant neoplasm of prostate (CMS-HCC)- Primary documented in this encounter Additional Health Concerns Infection Onset Date Last Indicated Resolved Time Respiratory Rule-Out 08/16/2024 08/16/2024 025 5:30 AM EST Assessment Noted Time PHQ-9 Depression Total Score: 6 08/21/19 20 8:13 PM EST documented as of this encounter Care Teams Farmer And Grazier Relationship Specialty Start Date End Date Miguelina Richard APRN-PROFESSOR OF CHEMICAL ENGINEERING [address] [place] [address] PCP - General Internal Medicine 12/03/22 documented as of this encounter
--- OUTSIDE RECORDS SUMMARY | 2025-02-11 09:41 | XMS_ITS | Encounter Summary ---
Author Organization [facility] Address [address] [place] [address] Care Team Providers Care Label Paster Name Role Phone Esthela Mahajan MD Unavailable [phone] Esthela Mahajan MD Primary Care Provider Reshma Oneil RN Unavailable [phone] Miguelina Richard BULB GRADER Unavailable [phone] Esthela Mahajan MD Unavailable [phone] Encounter Details Date Type Department Care Team (Late st Contact Info) Description 03/20/2023 Abstract [facility] [address] [place] [phone] Esthela Mahajan MD [address] [place], [place] [phone] Social History Tobacco Use Types Packs/Day Years [...] week 02/11/2023 How often do you attend [facility] or yarsanism services? More than 4 times per year 02/11/2023 Do you belong to any clubs o r organizations such as worship groups, unions, fraternal or athletic groups, or [...] medical care, and heating? Somewhat hard 02/11/2023 [facility] [place] of Occupat ional Health - Occupational Stress [...] health care facility (including now)? No 02/11/2023 Sex and Gender [...] 04/07/2025 10:00 AM EDT Office Visit [facility] [address] [place] [address] Miguelina Richard NP [address] [facility] [address] [place], [place] [phone] documented as of this encounter Visit Diagnoses Not on filedocumented in this encounter Care Teams Label Paster Relationship Specialty Start Date End Date Esthela Mahajan MD [address] [facility] [place] [address] PCP - Devoted 08/05/22 08/04/24 Esthela Mahajan MD [address] [facility] [place] [address] PCP - General 01/02/23 Esthela Mahajan MD [address] [facility] [place] [address] PCP - Medical [place] 08/05/2408/04 Reshma Oneil, EYAL [address] [facility] [place] [address] Registered Nurse Family Medicine 02/05/24 Miguelina Richrad NP [address] [facility] [place] [address] Nurse Practitioner Family Medicine 03/11/24 documented as of this encounter
--- OUTSIDE RECORDS SUMMARY | 2025-02-11 09:41 | XMS_ITS | Encounter Summary ---
Author Organization [facility] Address [address] [place] [address] Care Team Providers Care Manager Oracle Name Role Phone Esthela Mahajan MD Unavailable Esthela Mahajan MD Primary Care Provider Reshma Oenil RN Unavailable [phone] Miguelina Richard CERTIFIED NURSE OPERATING ROOM Unavailable [phone] Esthela Mahajan MD Unavailable Encounter Details Date Type Department Care Team (Late st Contact Info) Description 01/02/2023 Abstract [facility] [address] [place] [phone] Miguelina Richard CERTIFIED NURSE OPERATING ROOM [address] [place] [address] Social History Tobacco Use Types Packs/Day Years [...] Office Visit [facility] [address] [place] [address] Miguelina Richard NP [address] [place] [address] documented as of this encounter Visit Diagnoses Not on filedocumented in this encounter Care Teams Manager Oracle Relationship Specialty Start Date End Date Esthela Mahajan MD [address] [place] [address] PCP - Devoted 08/05/22 08/04/24 Esthela Mahajan MD [address] [place] [address] PCP - General 01/02/23 Esthela Mahajan MD [address] [place] [address] PCP - Medical [place] 08/05/2408/04 Reshma Oneil, EYAL [address] [place] [address] Registered Nurse Family Medicine 02/05/24 Miguelina Richard NP [address] [place] [address] Nurse Practitioner Family Medicine 03/11/24 documented as of this encounter
--- OUTSIDE RECORDS SUMMARY | 2025-02-11 09:41 | XMS_ITS | Encounter Summary ---
Author Organization [facility] Address [address] [place] [address] Care Team Providers Care Production Coordinator Name Role Phone Esthela Mahajan MD Unavailable [phone] Esthela Mahajan MD Primary Care Provider [phone] Reshma Oneil RN Unavailable [phone] Miguelina Richard CAMPUS PRESIDENT Unavailable Esthela Mahajan MD Unavailable [phone] Reason for Visit * Reason Comments Med Refill Encounter Details Date Type Department Care Team (Late st Contact Info) Description 12/29/2022 Refill [facility] [address] [place] [phone] Esthela Mahajan MD [address] [place], [place] [phone] Type 2 diabetes mellitus without complication, without [...] Telephone Encounter - Esthela Mahajan MD - 01/01/2023 9:01 AM EDT Refills sent. documented in this encounter Plan of Treatment Upcoming Encounters Date Type Department Care Team (Late st Contact Info) Description 04/07/2025 10:00 AM EDT Office Visit [facility] [address] [place] [address] Miguelina Richard NP [address] [place] [address] documented as of this encounter Visit Diagnoses Diagnosis Type 2 diabetes mellitus without complication, without long-term current use of insulin (HCC)- Primary documented in this encounter Care Teams Production Coordinator Relationship Specialty Start Date End Date Esthela Mahajan MD [address] [facility] [place] [address] PCP - Devoted 08/05/22 08/04/24 Esthela Mahajan MD [address] [facility] [place] [address] PCP - General 01/02/23 Esthela Mahajan MD [address] [facility] [place] [address] PCP - Medical [place] 08/05/2408/04 Reshma Oneil, RN [address] [place] [address] Registered Nurse Family Medicine 02/05/24 Miguelina Richard NP [address] [place] [address] Nurse Practitioner Family Medicine 03/11/24 documented as of this encounter
--- OUTSIDE RECORDS SUMMARY | 2025-02-11 09:41 | XMS_ITS | Encounter Summary ---
Author Organization [facility] Address [address] [place] [address] Care Team Providers Care Aircraft Charter Dispatcher Name Role Phone Esthela Mahajan MD Unavailable Esthela Mahajan MD Primary Care Provider Reshma Oneil RN Unavailable [phone] Miguelina Richard SALES AND SERVICE REPRESENTATIVE Unavailable [phone] Esthela Mahajan MD Unavailable Encounter Details Date Type Department Care Team (Late st Contact Info) Description 01/03/2023 Abstract [facility] [address] [place] [phone] Esthela Mahajan MD [address] [place], [place] [phone] Social History Tobacco Use Types Packs/Day Years [...] Office Visit [facility] [address] [place] [address] Miguelina Richard NP [address] [place] [address] documented as of this encounter Visit Diagnoses Not on filedocumented in this encounter Care Teams Aircraft Charter Dispatcher Relationship Specialty Start Date End Date Esthela Mahajan MD [address] [place] [address] PCP - Devoted 08/05/22 08/04/24 Esthela Mahajan MD [address] [place] [address] PCP - General 01/02/23 Esthela Mahajan MD [address] [place] [address] PCP - Medical [place] 08/05/2408/04 Reshma Oneil, RN [address] [place] [address] Registered Nurse Family Medicine 02/05/24 Miguelina Richard NP [address] [place] [address] Nurse Practitioner Family Medicine 03/11/24 documented as of this encounter
--- OUTSIDE RECORDS SUMMARY | 2025-02-11 09:41 | XMS_ITS | Encounter Summary ---
Author Organization [facility] Address [address] [place] [address] Care Team Providers Care Semi Conductor Assembler Name Role Phone Esthela Mahajan MD Unavailable [phone] Esthela Mahajan MD Primary Care Provider Reshma Oneil RN Unavailable [phone] Miguelina Richard PIPELINE INSPECTOR Unavailable [phone] Esthela Mahajan MD Unavailable Encounter Details Date Type Department Care Team (Late st Contact Info) Description 01/03/2023 Abstract [facility] [address] [place] [id number] Esthela Mahajan MD [address] [place], [place] [id number] Social History Tobacco Use Types Packs/Day Years [...] Office Visit [facility] [address] [place] [address] Miguelina Richard NP [address] [place] [id number] documented as of this encounter Visit Diagnoses Not on filedocumented in this encounter Care Teams Semi Conductor Assembler Relationship Specialty Start Date End Date Esthela Mahajan MD [address] [place] [id number] PCP - Devoted 08/05/22 08/04/24 Esthela Mahajan MD [address] [place] [address] PCP - General 01/02/23 Esthela Mahajan MD [address] [place] [address] PCP - Medical [place] 08/05/2408/04 Reshma Oneil, RN [address] [place] [address] Registered Nurse Family Medicine 02/05/24 Miguelina Richard NP [address] [place] [address] Nurse Practitioner Family Medicine 03/11/24 documented as of this encounter
--- OUTSIDE RECORDS SUMMARY | 2025-02-11 09:41 | XMS_ITS | Encounter Summary ---
Author Organization [facility] Address [address] [place] [address] Care Team Providers Care Chute Feeder Name Role Phone Esthela Mahajan MD Unavailable [phone] Esthela Mahajan MD Primary Care Provider [phone] Reshma Oneil RN Unavailable [phone] Miguelina Richard MANUFACTURING LABORER Unavailable [phone] Esthela Mahajan MD Unavailable [phone] Encounter Details Date Type Department Care Team (Late st Contact Info) Description 03/25/2023 Abstract [facility] [address] [place] [phone] Ashu Robledo DPM [address] [place], [place] [phone] Social History Tobacco Use Types Packs/Day Years [...] How often do you attend chur or muslim services? More than 4 times [...] medical care, and heating? Somewhat hard 02/11/2023 [facility] of Occupat ional Health - Occupational Stress [...] place to sleep or slept in a care home (including now)? No 02/11/2023 Sex and Gender [...] EDT Office Visit [facility] [address] [place] [address] Miguelina Richard NP [address] [place] [address] documented as of this encounter Visit Diagnoses Not on filedocumented in this encounter Care Teams Chute Feeder Relationship Specialty Start Date End Date Esthela Mahajan MD [address] [facility] [place] [address] PCP - Devoted 08/05/22 08/04/24 Esthela Mahajan MD [address] [facility] [place], [place] [phone] PCP - General 01/02/23 Esthela Mahajan MD [address] [facility] [place] [address] PCP - Medical [facility] 08/05/2408/04 Reshma Oneil RN [address] [facility] [place] [address] Registered Nurse Family Medicine 02/05/24 Miguelina Richard NP [address] [facility] [place], [place] [phone] Nurse Practitioner Family Medicine 03/11/24 documented as of this encounter
--- OUTSIDE RECORDS SUMMARY | 2025-02-11 09:41 | XMS_ITS | Encounter Summary ---
Author Organization [facility] Address [address] [place] [address] Care Team Providers Care Pillow Filler Name Role Phone Esthela Mahajan MD Unavailable Esthela Mahajan MD Primary Care Provider [phone] Reshma Oneil RN Unavailable [phone] Miguelina Richard LAW TUTOR Unavailable Esthela Mahajan MD Unavailable [phone] Reason for Visit * Reason Comments Med Refill Encounter Details Date Type Department Care Team (Late st Contact Info) Description 02/24/2023 Refill [facility] [address] [place] [phone] Esthela Mahajan MD [address] [place], [place] [address] Type 2 diabetes mellitus without complication, without long-term current use of insulin (HCC) Social History Tobacco Use Types Packs/Day Years [...] How often do you attend chur or holiness services? More than 4 times per year 02/11/2023 Do you belong to any clubs o r organizations such as restoration groups, unions, fraternal or athletic groups, or [...] medical care, and heating? Somewhat hard 02/11/2023 [facility] of Occupat ional Health - Occupational Stress [...] place to sleep or slept in a long term (including now)? No 02/11/2023 Sex and Gender [...] Telephone Encounter - Esthela Mahajan MD - 02/25/2023 10:55 AM EDT Refills sent. documented in this encounter Plan of Treatment Upcoming Encounters Date Type Department Care Team (Late st Contact Info) Description 04/07/2025 10:00 AM EDT Office Visit [facility] [address] [place] [address] Miguelina Richard, ODALYS [address] [place] [address] documented as of this encounter Visit Diagnoses Diagnosis Type 2 diabetes mellitus without complication, without long-term current use of insulin (HCC) documented in this encounter Care Teams Pillow Filler Relationship Specialty Start Date End Date Esthela Mahajan MD [address] [place] [address] PCP - Devoted 08/05/22 08/04/24 Esthela Mahajan MD [address] [place] [address] PCP - General 01/02/23 Esthela Mahajan MD [address] [facility] [place] [address] PCP - Medical [place] 08/05/2408/04 Reshma Oneil, EYAL [address] [facility] [place] [address] Registered Nurse Family Medicine 02/05/24 Miguelina Richard, LAW TUTOR [address] [place] [address] Nurse Practitioner Family Medicine 03/11/24 documented as of this encounter
--- OUTSIDE RECORDS SUMMARY | 2025-02-11 09:41 | XMS_ITS | Clinical Summary ---
Author Organization [facility] Address [address] [place] [address] Care Team Providers Care Wire Setter Name Role Phone Izzy Ortiz MD Primary Care Provider [phone] Allergies No known active allergies Medications gabapentin (NEURONTIN) 300 mg capsule Take 2 capsules by mouth three times daily. 540 capsule 5 11/21/2015 Active Active Problems Problem Noted Date Diagnosed Date Cervical spondylosis without myelopathy 03/30/20 14 Dizziness 03/30/2014 Social History Tobacco Use Types Packs/Day Years [...] Sign Reading Time Taken Comments Blood Pressure 127/82 10/13/2015 1:43 PM EST Pulse 53 10/13/2015 1:43 PM EST Temperature - - Respiratory Rate 18 10/13/2015 1:43 PM EST Oxygen Saturation 95% 03/30/2014 11:26 AM EDT Inhaled Oxygen Concentration - - Weight 110.7 kg (244 lb) 10/13/2015 1:43 PM EST Height 188 cm (6' 2 ) 10/13/2015 1:43 PM EST Body Mass Index 31.33 10/13/2015 1:43 PM EST Plan of Treatment Health Maintenance Due Date Last Done Comments Abdominal Aortic Aneurysm Screening 1955 Anxiety Screening 10/11/1971 Depression Screening 10/11/1971 Hepatitis C Screening 10/11/1971 DTaP,Tdap,Td Vaccine (1 - Tdap) [address] Colonography 1998 Cologuard (FIT-DNA) 1998 Colonoscopy 1998 Colorectal Cancer Screening 1998 Fecal Occult Blood 1998 Sigmoidoscopy 1998 Pneumococcal Vaccine: 50+ (1 of 1 - PCV) 10/11/2003 Shingrix Vaccine (1 of 2) 10/11/2003 Diabetes Screening 10/12/2018 10/13/2015, 06/29/2015 Covid-19 Vaccine (1 - 2023- season) 2024 Advance Directive Discussion 08/05/2024 Influenza Vaccine (#1) 2025 RSV Vaccine (1 - 1-dose 75+ series) 2028 Procedures Procedure Name Priority Date/Time Associated Diagnosis Comments HEMOGLOBIN A1C Routine 10/13/2015 3:27 PM EST Dizziness and giddiness Cervical spondylosis without myelopathy History of prostate cancer Elevated hemoglobin A1c White matter changes Hyperlipidemia, unspecified hyperlipidemia type from Last 3 Months or Most Recently Relevant to Health Maintenance Results * (ABNORMAL) HGB A1C (10/13/2015 3:27 PM EST) Hemoglobin A1C 6.0(H) 4.3 - 5.6 % 10/13/2015 10:27 PM EST [facility] Comment: [place] Diabetes Association guidelines indicate that patients with HgbA1c in the range 5.7-6.4% are at increased risk for development of diabetes, and intervention by lifestyle modification may be beneficial. HgbA1c greater or equal to 6.5% is considered diagnostic of diabetes. Estimated Average Glucose 126 mg/dL 10/13/2015 10:27 PM EST [facility] Comment: eAG: (Estimated average glucose) is a calculated value from HgbA1c and is parts representative of the average blood glucose level in the last 2-3 month period. Blood specimen (specimen) WHOLE BLOOD SPECIMEN / Unknown 10/13/2015 3:27 PM EST 10/13/2015 3:29 PM EST Iona Garland MD, PhD LABORATORY Final Result [facility] [address] [place] [address] from Last 3 Months or Most Recently Relevant to Health Maintenance Insurance [employer] Care Teams Wire Setter Relationship Specialty Start Date End Date Izzy Ortiz MD [address] [facility] [place] [address] PCP - General Family Medicine 03/29/14
--- OUTSIDE RECORDS SUMMARY | 2025-02-11 09:41 | XMS_ITS | Encounter Summary ---
Author Organization [facility] Address [address] [place] [address] Care Team Providers Care Payment Processor Name Role Phone Esthela Mahajan MD Unavailable Esthela Mahajan MD Primary Care Provider Reshma Oneil RN Unavailable [phone] Miguelina Richard LEAD CONSULTANT Unavailable Esthela Mahajan MD Unavailable [phone] Encounter Details Date Type Department Care Team (Late st Contact Info) Description 01/10/2023 Orders Only [facility] [address] [place] [phone] Esthela Cerna MA [address] [place], [place] [phone] Social History Tobacco Use Types Packs/Day Years [...] Office Visit [facility] [address] [place] [address] Miguelina Richard NP [address] [place] [address] documented as of this encounter Procedures Procedure Name Priority Date/Time Associated Diagnosis Comments HEMOGLOBIN A1C Routine 12/24/2022 documented in this encounter Results * (ABNORMAL) Hemoglobin A1c (12/24/2022) HEMOGLOBIN A1C 6.1 Blood Venous blood specimen / Unknown 12/24/2022 Historical Provider LAB BLOOD ORDERABLES Angelika l Result documented in this encounter Visit Diagnoses Not on filedocumented in this encounter Care Teams Payment Processor Relationship Specialty Start Date End Date Esthela Mahajan MD [address] [facility] [place] [address] PCP - Devoted 08/05/22 08/04/24 Esthela Mahajan MD [address] [facility] [place] [address] PCP - General 01/02/23 Esthela Mahajan MD [address] [facility] [place] [address] PCP - Medical [place] 08/05/2408/04 Reshma Oneil, EYAL [address] [facility] [address] Registered Nurse Family Medicine 02/05/24 Miguelina Richard, ODALYS [address] [facility] [place] [address] Nurse Practitioner Family Medicine 03/11/24 documented as of this encounter
--- OUTSIDE RECORDS SUMMARY | 2025-02-11 09:41 | XMS_ITS | Clinical Summary ---
Author Organization [employer] tem Address [id number] [address] [place] [address] Care Team Providers Care Reactor Technician Name Role Phone Miguelina Richard APRN-ORTHODONTIST SMALL BUSINESS OWNER Primary Care Pro vider Allergies Active Allergy Reactions Criticality Noted Date Comments Acyclovir 06/03/2019 Medications metFORMIN (GLUCOPHAGE) 500 mg tablet Take 2 tablets (1,000 mg total) by mouth in the morning. Active apalutamide 60 mg chemo tabletIndication s:Primary malignant neoplasm of prostate (CMS-HCC) Take 4 tablets by mouth daily 120 tablet 11 12/24/2023 Active aspirin 81 mg Take 1 tablet (81 mg total) by mouth in the morning. Active dapagliflozin propanediol (FARXIGA ORAL) Take by mouth. Active atorvastatin (LIPITOR) 20 mg tablet Take 1 tablet (20 mg total) by mouth in the morning. Active cyanocobalamin (vitamin B-12) 500 MCG tablet Activ e bvxwvgph-xsjo-QQ -calcium &mins (THERAGRAN-M) 9 mg iron-400 mcg tablet Take 1 tablet by mouth in the morning. Active omega 9-zgb-mmw-fish oil (Fish OiL) 300-1,000 mg capsule Take 1,200 mg by mouth in the morning. Active apixaban (ELIQUIS) 5 mg tablet Take 1 tablet (5 mg total) by mouth in the morning and 1 tablet (5 mg total) before bedtime. 60 tablet 08/21/2024 Active dilTIAZem CD (CARDIZEM CD) 240 mg 24 hr capsule Take 1 capsule (240 mg total) by mouth in the morning. 30 capsule 08/21/2024 Active sucralfate (CARAFATE) 1 gram tablet Take 1 tablet (1 g total) by mouth in the morning and 1 tablet (1 g total) at noon and 1 tablet (1 g total) in the evening and 1 tablet (1 g total) before bedtime. 02/11/2024 Active omeprazole (PriLOSEC OTC) 20 mg EC tablet Take 1 tablet (20 mg total) by mouth in the morning. Active Active Problems Problem Noted Date Diagnosed Date Epigastric pain 08/16/2024 Right kidney stone 08/16/2024 Diverticulosis 08/16/2024 Gastroesophageal reflux disease without esophagi tis 08/16/2024 Mixed hyperlipidemia 08/16/2024 Type 2 diabetes mellitus, wi thout long-term current use of insulin 08/16/2024 Cholelithiasis 08/16/2024 Fatty liver 08/16/2024 Lower urinary tract symptoms (LUTS) 06/03/2019 Overview (05/02/2020): ==== 05/02/2020 ==== Established problem, worsening. AUA [...] be set up for more formal dilatation. Assessment & Plan (05/02/2020 3:25 PM EDT): Roughly similar to previous---prior to dilation of VNC. 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 Understands he would most likely have a catheter postprocedure and in order to keep it more open /higher likelihood of keeping open he would need to do intermittent self catheterization Assessment & Plan (06/03/2019 12:25 PM EDT): We have decided to do cystoscopy under local. At that time we can assess for any stricturing. See the degree of such. Also have some semblance or sense of the sphincter control. Initial impression is that his urinary control was wholly dependent on sphincter as symptoms of only presented themselves the last 2 months the patient has been functionally dry for quite some time. Hematuria, gross 06/03/2019 Overview (05/02/2020): ==== 05/02/2020 ==== no interval gross hematuria. [...] is doing much better since the procedure. Assessment & Plan (08/19/2019 11:05 AM EST): Follow-up in 3 months or sooner if recurrent hematuria Primary malignant neoplasm of prostate 7 Overview (05/02/2020): ==== 05/02/2020 ==== psa still undetectable. On androgen deprivation as well as apalutamide under the auspices of Medical Oncology. ==== 06/03/2019 ==== clinical T1c prostate carcinoma secondary to PSA above 4. Then underwent radical prostatectomy. [place] 4 + 4 equals 8. Mucinous features. [...] compared to 9.40. Testosterone 06/03/2019 was 1.95. Immunizations Immunization Administration Dates Next Due Rabies - Im Diploid Cell Culture 06/14/2022(Defe rred: Other) Rabies Immune Globulin 06/14/2022() Tdap 06/15/2022,03/01/2020 Family History * Patient is adopted Relation Name Status Comments Father Mother Social History Tobacco Use Types Packs/Day Years Used Date Smoking Tobacco: Former Cigarettes 1 10.2 0 11/03/1972 - 01/17/1978 Smokeless Tobacco: Former Chew Tobacco Cessation:Counseling Given: Not Answered Alcohol Use Standard Drinks/Week Comments Not Currently 0 (1 standard drink = 0.6 oz pur e alcohol) [facility] Utilities Answer Date Recorded In the past 12 months has e electric, gas, oil, or water company threatened [...] How often do you attend chur or buddhism services? More than 4 times per year 10/12/2021 Do you belong to any clubs o r organizations such as uatsdin groups, unions, fraternal or athletic groups, or [...] Answer Date Recorded Total Score 0 10/12/2021 [facility] of Occupat ional Health - Occupational [...] Recorded Do you need help finding a [facility] career center and/or a training program? No [...] Orientation Straight 06/01/2019 5: 07 AM EDT Last Filed Vital Signs Vital Sign Reading Time Taken Comments Blood Pressure 128/74 10/19/2024 8:49 AM EDT Pulse 77 10/19/2024 8:49 AM EDT Temperature 36.6 C (97.8 F) 10/19/2024 8:49 AM EDT Respiratory Rate 16 10/19/2024 8:49 AM EDT Oxygen Saturation 97% 10/19/2024 8:49 AM EDT Inhaled Oxygen Concentration - - Weight 96.6 kg (213 lb) 10/19/2024 8:49 AM EDT Height 188 cm (6' 2.02 ) 10/19/2024 8:49 AM EDT Body Mass Index 27.34 10/19/2024 8:49 AM EDT Plan of Treatment Upcoming Encounters Date Type Department Care Team (Late st Contact Info) Description 04/19/2025 10:30 AM EDT Office Visit [facility] - Medical Oncology [address] [place] [phone] Taylor Bowen, WEIGHT LOSS SALES CONSULTANT-[address], [place] [address] Health Maintenance Due Date Last Done Comments Diabetic Ophthalmology Exam 1955 Depression Screening 1965 Adult BMI Follow Up Plan 10/11/1971 Diabetic Foot Exam 10/11/1971 Abdominal Aortic Aneurysm (A AA) Screen 2018 Fall Risk Screening 2018 Zoster (Shingles) Vaccine (2 of 2) 11/17/20242024 Influenza Vaccine 04/05/2025 Adult BMI Screening 10/19/2025 10/19/2024 Tobacco Screening 10/19/2025 10/19/2024 DTaP,Tdap and Td Vaccines (4 - Td or Tdap) 06/15/2032 06/15/2022, 03/01/2020, 11/04/2015 Goals Goal Patient Goal Type Associated Problems Recent Progress Patient-Stated? Author Home with self care General Yes Shantell Sutherland, RN Note: Evaluation of progress towards goal: Patient and plan for patient to return home with self care and support of as needed. Medical Devices Implanted Type Area Negative Assembler Device Identifier Shelf Expiration Date Model / Serial / Lot Pacemaker Pacemaker [employer] eluna 8 / [id number] / Insurance [address] [address] [employer] [place] [address] WORKER'S COMPENSATION Advance Directives * Full Code (Latest Code Status on File) Date Activated Date Inactivated Comments 08/16/2024 4:47 AM 08/21/2024 8:11 PM Care Teams Reactor Technician Relationship Specialty Start Date End Date Miguelina Richard, WEIGHT LOSS SALES CONSULTANT-ORTHODONTIST SMALL BUSINESS OWNER [address] [place] [address] PCP - General Internal Medicine 12/03/22
--- OUTSIDE RECORDS SUMMARY | 2025-02-11 09:41 | XMS_ITS | Encounter Summary ---
Author Organization [facility] Address [address] [place] [address] Care Team Providers Care Tea Leaf Reader Name Role Phone Esthela Mahajan MD Unavailable [phone] Esthela Mahajan MD Primary Care Provider [phone] Reshma Oneil RN Unavailable [phone] Miguelina Richard HOT STRIP FINISHER Unavailable [phone] Esthela Mahajan MD Unavailable [phone] Encounter Details Date Type Department Care Team (Late st Contact Info) Description 03/05/2023 Abstract [facility] [address] [place] [phone] Ashu Robledo DPM [address] [place], [place] [phone] Social History Tobacco Use Types Packs/Day Years [...] How often do you attend chur or latter day services? More than 4 times per year 02/11/2023 Do you belong to any clubs o r organizations such as mandaeism groups, unions, fraternal or athletic groups, or [...] medical care, and heating? Somewhat hard 02/11/2023 [facility] [place] of Occupat ional Health - Occupational Stress [...] place to sleep or slept in a skilled nursing (including now)? No 02/11/2023 Sex and Gender [...] AM EDT Office Visit [facility] [address] [place] [phone] Miguelina Richard NP [address] [place] [address] documented as of this encounter Visit Diagnoses Not on filedocumented in this encounter Care Teams Tea Leaf Reader Relationship Specialty Start Date End Date Esthela Mahajan MD [address] [facility] [place] [address] PCP - Devoted 08/05/22 08/04/24 Esthela Mahajan MD [address] [facility] [place] [address] PCP - General 01/02/23 Esthela Mahajan MD [address] [facility] [place] [address] PCP - Medical [place] 08/05/2408/04 Reshma Oneil RN [address] [facility] [place] [address] Registered Nurse Family Medicine 02/05/24 Miguelina Richard NP [address] [facility] [place] [address] Nurse Practitioner Family Medicine 03/11/24 documented as of this encounter
--- OUTSIDE RECORDS SUMMARY | 2025-02-11 09:41 | XMS_ITS ---
Author Organization [employer] Address [id number] [address] [place] [address] Care Team Providers Care Airfield Manager Name Role Phone Miguelina Richard APRN-SWINE GENETICS RESEARCHER Primary Care Pro vider Active Problems Problem Noted Date Diagnosed Date [...] start with CT urogram cytology and cystoscopy ====1/15/20==== symptoms much improved following cystoscopy/dilatation of vesical [...] PSA above 4. Then underwent radical prostatectomy. [place] 4 + 4 equals 8. Mucinous features. [...] compared to 9.40. Testosterone 06/03/2019 was 1.95. Current Treatment and Therapy Plans No current plan information found. Past Treatment and Therapy Plans INFUSION TREATMENT Plan Name Start Date Discontinue Date Treatment Medications Discontinue Reason Plan Provider Leuprolide 45 mg every 6 months (LUPRON DEPOT/ELIGARD) 04/16/2024 06/10/2024 leuprolide acetate (6 month) (ELIGARD) Other Chandana Barber MD LEUPROLIDE 45 MG EVERY 6 MONTHS (LUPRON DEPOT/ELIGARD) 07/05/2021 12/07/2022 leuprolide (LUPRON) Other Chandana Barber MD Lupron Injection 07/09/2019 07/05/2021 leuprolide (LUPRON) Therapy Complete Chandana Barber MD Radiation Treatments * Course C1 12/12/2015 - 09/08/2018 Treatment Period Energy Fraction Dose Fractions Total Dose Plans Planned prostate bed boost [ProstBed bst] 09/08/2018 - 09/08/2018 200 5 1,000 Prost_SV_LNs 09/08/2018 - 09/08/2018 200 5,600 Reference Points Delivered Rx Pelvic LNs 09/08/2018 - 09/08/2018 Rx Prost bed 09/08/2018 - 09/08/2018 6,600 Rx Rt Iliac node 09/08/2018 - 09/08/2018
[2025-02-11 10:26] LABS: Alanine Aminotransferase 35 U/L (16-63); Aspartate Amino Transferase 28 U/L (15-37); Cholesterol 168 mg/dL (<=200); HDL Cholesterol 58 mg/dL (40-60); Triglycerides 132 mg/dL (<=150); VLDL CHOLESTEROL 26.4 mg/dL
== END 2025-02-11 09:35 | disposition home or self-care (01) ==
LOC: LAB 09:37
PROVIDERS: PCP Nurse Practitioner Family; Visit Provider Internal Medicine Cardiovascular Disease
DX: E78.00 Pure hypercholesterolemia, unspecified (principal)
CPT/HCPCS: 36415; 80061; 84450; 84460

== ENCOUNTER 2025-07-13 09:06 | Outpatient (OUT) | payer MEDICARE, SELFPAY ==
--- NOTE | 2025-07-13 09:00 | CA_ITS ---
Patient Name: KATH CÁRDENAS MR#: [id number] : 1955 Exam Date: 07/13/2025 Ordering Doctor: DR. KRISTI HERRON M.D. ECHOCARDIOGRAM REPORT PROCEDURE: CA ECHO DOPPLER COMPLETE INDICATIONS: Aortic root dilatation, valvular heart disease, pacemaker, diabetes COMPARISON: None. DESCRIPTION: COMPLETE ECHOCARDIOGRAM Real-time transthoracic echocardiography with 2D, M-mode, spectral and color flow Doppler performed. QUALITY: Technical quality was good. LEFT VENTRICLE: Normal chamber size. Normal left ventricular wall thickness. Normal systolic function. The septum is abnormal in motion, likely due to pacemaker. Estimated left ventricular ejection fraction is 55%. LV EF: Normal left ventricular ejection fraction, (55%). DIASTOLIC: Diastolic function is indeterminate. ATRIAL SEPTUM: Visually appears intact. LEFT ATRIUM: Moderate chamber dilatation. RIGHT ATRIUM: Mild chamber dilatation. RIGHT VENTRICLE: Normal chamber size. Systolic function is normal. Pacer wire present. TRICUSPID VALVE: Normal mobility and thickness. No stenosis with trivial regurgitation. No evidence of pulmonary hypertension. RVSP 24 mmHg MITRAL VALVE: Normal mobility and thickness. No evidence of mitral valve stenosis. Mild mitral annular calcification. Mild mitral regurgitation. AORTIC VALVE: Normal trileaflet appearance. No visible sclerosis. Normal leaflet mobility. No evidence of aortic valve stenosis. Mild aortic regurgitation. AORTIC ROOT: The aortic root is mildly dilated measuring 4.1 cm. Ascending aorta is normal in size (3.6 cm). PULMONIC VALVE: Normal thickness and mobility. No stenosis. Trivial regurgitation. PERICARDIUM: No evidence of pericardial effusion. IVC: Collapses with inspiration. PLEURA: CONCLUSION: 1. Normal left ventricular size and systolic function. Estimated LVEF is 55%. 2. Normal right ventricular size and systolic function. 3. Mild to moderate biatrial dilatation. 4. Mild mitral and aortic regurgitation. 5. Normal right-sided pressures. 6. Mildly dilated aortic root measuring 4.1 cm. Normal size ascending aorta. Adult Echocardiography Procedure Report Left Ventricle LVEDD (3.7 - 5.6 cm): 4.48 cm LVESD (2.2 - 4.0 cm): 2.73 cm LVIVS thickness (0.6 - 1.2 cm): 1.08 cm LVPW thickness (0.5 - 1.0 cm): 1.00 cm e': 0.10 m/s E - e': 4.05 LVOT Max Gradient: 2.11 mm[Hg] LVOT Area (cm2): 0.73 m/s Peak Velocity (LVOT): 0.73 m/s Mean Velocity (LVOT): 0.51 m/s LVOT Diameter 2.62 cm Left Ventricular Ejection Fraction: 55 % Left Atrium LA Volume Index (2D A2C): 28.62 ml/m2 Left Atrium Systolic Dimension: 3.31 cm Mitral Valve MV E to A Ratio: 0.52 Mitral Valve A-Wave Peak Velocity: 0.75 m/s Mitral Valve E-Wave Peak Velocity: 0.39 m/s Right Ventricle Aorta AO Root Diam: 4.05 cm Ascending Ao Diam: 3.60 cm Aortic Valve AoV Area (Peak Bucky): 3.46 cm2, 3.46 cm2 AoV Area (VTI): 3.75 cm2, 3.75 cm2 Deceleration Prentiss: 2.90 m/s2 Pressure Half-Time: 543.95 ms Peak Velocity(Antegrade Flow): 1.13 m/s Peak Gradient(Antegrade Flow): 5.12 mm[Hg] Mean Velocity(Antegrade Flow): 0.79 m/s Mean Gradient(Antegrade Flow): 2.86 mm[Hg] Velocity Time Integral: 24.79 cm Tricuspid Valve Peak Velocity (Regurgitant Flow): 2.23 m/s, 2.29 m/s Pulmonic Valve Mean Gradient: 1.55 mm[Hg] Mean Velocity: 0.59 m/s Peak Velocity: 0.85 m/s Peak Gradient: 2.91 mm[Hg] Right Atrium Right Atrium Systolic Pressure: 38.43 ml, 38.43 ml Dictated by: Daniel Kelly M.D. on 07/13/2025 at 19:10 Approved by: Daniel Kelly M.D. on 07/13/2025 at 19:15
== END 2025-07-13 09:07 | disposition home or self-care (01) ==
PROVIDERS: PCP Nurse Practitioner Family; Visit Provider Internal Medicine Cardiovascular Disease
DX: I77.810 Thoracic aortic ectasia (principal); I38 Endocarditis, valve unspecified
CPT/HCPCS: 93306